=== PATIENT | female | born 1945 | race Caucasian/White ===

== ENCOUNTER 2025-04-23 10:54 | Outpatient (AMB) | payer MEDICARE, OTHER, SELFPAY ==
--- NOTE | 2025-04-23 11:03 | A.OFFPC_ITS ---
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 Accompanied by: Daughter Allergies gabapentin Allergy (Intermediate, Verified 04/23/25 11:18) Hives Iodinated Contrast Media (Contrast Dye) Allergy (Intermediate, Verified 04/23/25 11:18) Swelling banana Allergy (Mild, Verified 04/23/25 11:18) diarrhea/nausea latex Allergy (Mild, Verified 04/23/25 11:18) red bumps/swelling ondansetron (From Zofran) Allergy (Mild, Verified 04/23/25 11:18) QT prolongation Penicillins Allergy (Mild, Verified 04/23/25 11:18) Rash shellfish derived (shellfish) Allergy (Mild, Verified 04/23/25 11:18) Hives Sulfa (Sulfonamide Antibiotics) Allergy (Mild, Verified 04/23/25 11:18) Rash Tetracyclines Allergy (Mild, Verified 04/23/25 11:18) Unknown nitrofurantoin (From Macrobid) Allergy (Verified 04/23/25 11:18) Unknown iodine topical Allergy (Mild, Uncoded 04/23/25 11:18) Unknown Medication List - Last Reconciled 04/23/25 by Jyothi Ayers MD cetirizine mg PO morphine ER 60 mg PO Q12H olanzapine 5 mg PO DAILY omeprazole 40 mg PO BID oxycodone 15 mg PO Q3H PRN sennosides (senna) 17.2 mg PO BEDTIME PRN Tobacco use date assessed: 04/23/25 Fall risk assessment: 2 + Falls in past year Last assessed Fall Risk: 04/23/25 Dental Screening Dental Screen Date: 04/23/25 Did you have a dental visit in the last 12 months?: No Did you have a dental problem in the last 6 months where you did not have access to dental care?: No HPI HPI Comments History of Present Illness Details The patient is an 79-year-old female presenting to re-establish care and for medication reconciliation. Accompanied by daughter Mariluz. Cholangiocarcinoma s/p Y90 radioembolization: Managed by [facility] Dr. Sosa Medication Adherence: The patient has been struggling with managing her medications, which has contributed to depression. She reports having stopped all her medications except for her pain medication. Palliative care suggested using a bubble pack from [facility] pharmacy to help with medication management. Depression and Anxiety: The patient has a history of depression and anxiety and was previously on duloxetine, which had been increased from 60 mg to 90 mg. She stopped taking duloxetine and was reluctant to restart it at the higher dose. Nausea: The patient reports struggling with significant nausea. Her oncologist prescribed olanzapine 5 mg to help with nausea and depression, but she was hesitant to start it before speaking with her primary physician. She has been sucking on ariela to help alleviate the symptom. Chronic Pain: The patient's chronic pain is managed with a long-acting pain medication, with the dose recently increased from 30 to 60. Since the dose increase, she has not required her short-acting oxycodone for breakthrough pain. She takes her pain medication at 9 a.m. and 9 p.m. She is also being seen by [facility]. Opioid-Induced Constipation: The patient reports having a bowel movement every other day. She takes two Senna tablets nightly and miralax sometimes to manage symptoms. Diabetes Mellitus: The patient uses a Direct Hit Nicholas 2 sensor for continuous glucose monitoring, which is changed every 14 days. She was previously taking 8 units of long-acting insulin but has not been checking her blood sugar or taking her insulin recently. Generalized Weakness: The patient reports being extremely weak, chairbound, and unable to stand up from a low position. She is considered homebound. History of QT Prolongation: The patient has a history of QT prolongation on an EKG, which was caused by zofran. The medication was stopped due to the risk of dangerous arrhythmias. Recurrent UTIs- has seen [facility] before, now on methenamine bid Medical History: - Major depressive disorder - Anxiety - Chronic pain syndrome - Diabetes mellitus - Recurrent UTIs, on prophylaxis - History of QT prolongation secondary t o medication - Gastritis Medications: - Long-acting pain medication 60, for ch ronic pain - Aracelis, two tablets at night, for consti pation - Omeprazole, for gastritis/heartburn pr evention - Methenamine 1 g twice daily, for UTI p revention - Docusate 100 mg, as a stool softener - Vitamin D3 50,000 units once weekly (c sulytlking held) - Multivitamin once daily - Cetirizine (Zyrtec), as needed for all ergies - Insulin, long-acting, 8 units (current ly held) - OTC Ariela, for nausea - Liquid IV, once daily for hydration(52 0mg Na) - Fair Life liquid protein, once daily Social History: - Functional status: The patient is extr karsten weak, chairbound, homebound, and incontinent. - Housing/Support: The patient lives at home and has difficulty obtaining in-h ome help through Medicare as her income is above the qualifying threshold. - Nutrition/Hydration: She consumes one packet of Liquid IV daily for hydration, which contains 520 mg of sodium. - She also consumes a daily liquid prote in shake (Fair Life). - Substance Use: No tobacco, alcohol, or illicit drug use discussed. - Opioid Use: The patient is on chronic opioid therapy for pain management and has Narcan at home. Review of Systems - Constitutional: Reports extreme weakne ss and being homebound. - Denies fevers or chills. - Gastrointestinal: Reports significant nausea, belching, and pain in the right upper quadrant into the ribs. - Denies heartburn or stomach pain. - Reports bowel movements every other da y. - : Reports urinary incontinence. - Cardiovascular: Denies leg swelling. - Psychiatric: Reports depression and an xiety. - Denies agitation. Physical Exam - General: Patient is chairbound. - Cardiovascular: Normal heart sounds, s oft murmur across precordium. - Pulmonary: Lungs are clear to ausculta tion bilaterally. - Abdomen: Soft, with normoactive bowel sounds. - Tenderness to palpation in the right u pper quadrant near the ribs. - Extremities: No peripheral edema noted in legs bilaterally. Assessment and Plan 1. Medication non-adherence - The patient has significant difficulty with her medication regimen, leading to her stopping all medications except for pain management. - Plan is to consolidate all maintenance medications (omeprazole, Senna, methenamine, olanzapine) to [facility] for bubble packing to improve adherence. - Pain medication and CGM supplies will be sent to [facility]. 2. Nausea, Depression, and Anxiety - Patient presents with uncontrolled alan sea and a history of depression and anxiety, with recent non-adherence to duloxetine. - Plan is to start olanzapine 5 mg once daily in the evening to address both nausea and depression. - The dual benefit and potential for sed ation were discussed. - Last EKG 01/2025- QTC 424 - She will discontinue duloxetine. 3. Chronic Pain in setting of cholangioc arcinoma - The patient's chronic pain is managed with an opioid regimen. - The recent increase in her long-acting medication has reduced her need for short-acting oxycodone. - She signed an updated pain management contract. - Plan is to continue the current regime n with prescriptions sent to [facility]. - A urine drug screen is ordered 4. Opioid-Induced Constipation - Patient requires a bowel regimen to ma intain motility. - Plan is to continue Senna two tabs nig htly - Prescriptions will be sent for bubble packing. 5. Diabetes Mellitus - Patient has not been taking her insuli n or monitoring her glucose. - Plan is to hold insulin until she resu mes tracking her levels with her Freestyle Nicholas 2 sensor to avoid hypoglycemia. - A1c will be checked. - The sensor prescription will go to [facility] . 6. Generalized Weakness/Social Support N eeds - Patient is homebound and frail, with d ifficulty accessing in-home care. - Plan is to refer her to social work to explore support options. - Information was provided on the [employer] transportation service for medical appointments. 7. Preventative Care and Follow-up - Plan is to check labs including A1c an d vitamin D level. - The Vitamin D supplement is held pendi ng results. - Follow-up is scheduled in 3 months. Discussion Notes I discussed at length with the patient and her daughter the challenges with medication management. We agreed to consolidate most of her medications to [facility] for bubble packing to improve adherence, while her pain medications and diabetes supplies will go to [facility] for convenience and reliability. I addressed her severe nausea and depression and recommended stopping duloxetine and starting a trial of olanzapine 5 mg in the evening. I explained that this medication could help both symptoms and that we would monitor for side effects like sedation. Given her history of QT prolongation, I noted that while olanzapine also carries this risk, it is less pronounced than her previous medication, and we may obtain an EKG to monitor this. For her chronic pain, we will continue the current regimen as the increased long-acting dose has been effective. A new pain contract was reviewed and signed. I advised holding her insulin until she resumes blood sugar monitoring to prevent hypoglycemia. I also placed a referral to social work to explore options for in- home help and provided information on the [facility] transportation service. Patient Instructions - To make taking your medicines easier, we will send most of your prescriptions to [facility] pharmacy to be put into a weekly bubble pack. - Your pain medicine and your diabetes s ensor prescriptions will be sent to [facility]. - To help with nausea and depression, st op taking your duloxetine and start taking olanzapine 5 mg once a day in the evening. - This new medicine may make you sleepy, so taking it at night is best. - Do not restart your insulin until you have your Freestyle Nicholas sensor and are able to check your blood sugar regularly. - Stop taking your high-dose vitamin D p ill for now. - Continue taking two Senna tablets at [facility] for your bowels. - Use only one packet of Liquid IV per d ay, and skip it if your blood pressure is high. - Please go to the lab to get your blood drawn for testing. [facility] Medical History (Updated 04/23/25 @ 14:08 by Jyothi Ayers MD) UTI due to extended-spectrum beta lactamase (ESBL) producing Escherichia coli Recurrent UTI Depression with anxiety QT prolongation Gastroparesis Skin cancer COPD (chronic obstructive pulmonary disease) Unspecified asthma Hypothyroidism Primary hypertension Depression Diabetes mellitus type 2 in obese Cholangiocarcinoma Surgical History (Updated 04/23/25 @ 12:20 by Jyothi Ayers MD) H/O: hysterectomy H/O cervical spine surgery Hx of cholecystectomy Social History Housing: House Patient Tobacco Use Status: Former Tobacco user Years Smoked: < 1 year e-Cigarette/Vaping Use: Never Used service: No Current occupational status: retired Questionnaire AUDIT C Alcohol Use Questionnaire (AUDIT-C) 1. How often do you have a drink containing alcohol?: Never 3. How often do you have six or more drinks on one occasion?: Never Total Score: 0 Physical exam (Primary Care) Vital Signs: Last Vital Signs Temp 96.9 F 04/23/25 11:05 Pulse 97 04/23/25 11:05 Resp 16 04/23/25 11:05 BP 124/68 04/23/25 11:05 Pulse Ox 93 04/23/25 11:05 Oxygen Delivery Method Room Air 04/23/25 11:05 BMI result Body Mass Index 31.9 Tobacco/Smoking Status: Tobacco use Status Tobacco use date assessed 04/23/25 04/23/25 11:06 Patient Tobacco Use Status Former Tobacco user 04/23/25 11:10 e-Cigarette/Vaping Use Never Used 04/23/25 11:10 Coding Level of Care Code Est Pt Level 5 (76521) Complex EM visit Add On G2211 Diagnoses Diabetes mellitus type 2 in obese E11.69; E66.9 Cholangiocarcinoma C22.1 Depression with anxiety F41.8 Time Spent (min) 55 Comment include chart review, document prep, visit time and physical exam, discussion of care plan Assessment & Plan Assessment & Plan (1) Diabetes mellitus type 2 in obese: Code(s): E11.69 - Type 2 diabetes mellitus with other specified complication; E66.9 - Obesity, unspecified Category: Medical (2) Cholangiocarcinoma: Code(s): C22.1 - Intrahepatic bile duct carcinoma Category: Medical (3) Depression with anxiety: Code(s): F41.8 - Other specified anxiety disorders Category: Medical Plan - Start olanzapine 5 mg once daily in the evening for nausea and depression; discontinue duloxetine. - Consolidate all maintenance prescriptions (olanzapine, omeprazole, Aracelis, methenamine, docusate) to [facility] for bubble packing. - Send prescriptions for pain medication and Freestyle Nicholas 2 sensors to [facility]. - Continue current chronic pain medication regimen. - Obtain urine drug screen - Obtain labs to check liver function, A1c, and vitamin D level. - Hold insulin until patient is able to track blood glucose levels with her CGM to prevent hypoglycemia. - Hold vitamin D supplement pending lab results. - Refer patient to social work to assist with finding in-home support services. - Follow up in 3 months. Orders: Orders Alcohol, Ethyl Urine Screen Today C22.1 - Intrahepatic bile duct carcinoma, E11.69 - Type 2 diabetes mellitus with other specified complication, E66.9 - Obesity, unspecified Ferritin Today C22.1 - Intrahepatic bile duct carcinoma, E11.69 - Type 2 diabetes mellitus with other specified complication, E66.9 - Obesity, unspecified Folate Today C22.1 - Intrahepatic bile duct carcinoma, E11.69 - Type 2 diabetes mellitus with other specified complication, E66.9 - Obesity, unspecified Complete Blood Count Auto Diff Today C22.1 - Intrahepatic bile duct carcinoma, E11.69 - Type 2 diabetes mellitus with other specified complication, E66.9 - Obesity, unspecified Comprehensive Met. Panel Today C22.1 - Intrahepatic bile duct carcinoma, E11.69 - Type 2 diabetes mellitus with other specified complication, E66.9 - Obesity, unspecified Cocaine Screen Urine Today C22.1 - Intrahepatic bile duct carcinoma, E11.69 - Type 2 diabetes mellitus with other specified complication, E66.9 - Obesity, unspecified Vitamin D 25-OH Total Today C22.1 - Intrahepatic bile duct carcinoma, E11.69 - Type 2 diabetes mellitus with other specified complication, E66.9 - Obesity, unspecified Vitamin B12 Today C22.1 - Intrahepatic bile duct carcinoma, E11.69 - Type 2 diabetes mellitus with other specified complication, E66.9 - Obesity, unspecified Hemoglobin A1c Today C22.1 - Intrahepatic bile duct carcinoma, E11.69 - Type 2 diabetes mellitus with other specified complication, E66.9 - Obesity, unspecified TSH reflex Free T4 Today E03.9 - Hypothyroidism, unspecified Cannabinoid Screen Urine Today C22.1 - Intrahepatic bile duct carcinoma, E11.69 - Type 2 diabetes mellitus with other specified complication, E66.9 - Obesity, unspecified Opiate Screen Urine Today C22.1 - Intrahepatic bile duct carcinoma, E11.69 - Type 2 diabetes mellitus with other specified complication, E66.9 - Obesity, unspecified Medications: New olanzapine 5 mg PO DAILY 30 tabs 3RF sennosides (senna) 17.2 mg (2 x 8.6 mg) PO BEDTIME PRN 60 tabs 11RF constipation insulin glargine (Lantus Solostar U-100 Insulin) 8 units (0.08 mL) subcut DAILY 15 mL 11RF naloxone 4 mg/actuation (Narcan) spray 1 dose into ONE nostril; alternate nostrils w each dose until help arrives 1 spray intranasal Q3M methenamine hippurate 1 g PO BID 60 tabs 11RF omeprazole 40 mg PO DAILY 30 caps 11RF omeprazole 40 mg PO DAILY 30 caps 11RF flash glucose sensor (FreeStyle Nicholas 2 Sensor kit) dx: E11.9 use twice daily change sensor every 14 days 2 ea 11RF
[2025-04-23 11:05] VITALS: BP 124/68; PULSE 97; RESP 16; TEMP 36.1; O2SAT 93; BMI 31.9
--- OUTSIDE RECORDS SUMMARY | 2025-04-23 13:35 | XMS_ITS | Clinical Summary ---
Author Organization [address] Address [address] [place] [phone] Phone Care Team Providers Care Fisher Net Name Role Phone Jyothi Ayers MD Primary Care Provider +1- [phone] Social History Tobacco Use Types Packs/Day Years Used Date Smoking Tobacco: Never Smokeless Tobacco: Never Alcohol Use Standard Drinks/Week Comments Never 0 (1 standard drink = 0.6 oz pur e alcohol) Comments Unknown Sex and Gender Information Value Date Recorded Sex Assigned at Not on file Legal Sex Female 4:41 AM EST Gender Identity Not on file Sexual Orientation Not on file Obstetrics History Last Filed Vital Signs Vital Sign Reading Time Taken Comments Blood Pressure 134/76 01/16/2023 11:06 AM EDT Si tting R Arm Pulse 59 01/16/2023 11:06 AM EDT Temperature - - Respiratory Rate - - Oxygen Saturation - - Inhaled Oxygen Concentration - - Weight 77.6 kg (171 lb) 01/16/2023 11:06 AM EDT Height 160 cm (5' 3 ) 01/16/2023 11:06 AM EDT Body Mass Index 30.29 01/16/2023 11:06 AM EDT Plan of Treatment Health Maintenance Due Date Last Done Comments Diabetes: Annual Foot Exam 1955 Diabetes: Annual Retina Eye Exam 1955 Hepatitis A Vaccines (1 of 2 - Risk 2-dose series) 1962 Zoster Vaccines (1 of 2) 1993 Hepatitis B Vaccines (1 of 3 - Risk 3-dose series) 2003 RSV Immunization Adult Patients (1 - 1-dose 75+ series) 2018 Cholesterol Screening (Lipid Panel) 05/14/2022 Falls Risk Assessment 05/14/2022 Medicare Annual Wellness Visit 05/14/2022 Social Influencers of Health Screening 05/14/2022 Diabetes: Annual Urine Albumin-Creatinine Ratio (uACR) 04/15/2024 Depression Screening 06/11/2024 Diabetes: Blood Sugar Control Test (HGBA1C) 11/26/2024 05/28/2024 COVID-19 Vaccine ( season) 2025 05/10/2021, 02/15/2021, 01/17/2021 Influenza Vaccine (#1) 2025 , 04/01/2021, 03/12/2020, Additional history exists Diabetes: Annual GFR (Glomerular Filtration Rate) 06/17/2025 06/17/2024, 06/10/2024, 06/05/2024, Additional history exists Hypertension/CHF/CAD Annual BMP Blood Test 06/17/2025 06/17/2024, 06/10/2024, 06/05/2024, Additional history exists DTaP,Tdap,and Td Vaccines (3 - Td or Tdap) 02/12/2030 02/13/2020, 07/05/2015 Osteoporosis Screening (Bone Density Screening) 10/08/2031 10/07/2021 Pneumococcal Vaccine: 50+ Years Completed 02/15/2023, 07/04/2017, 08/24/2014 HIB Vaccines Aged Out No longer eligi ble based on patient's age to complete this topic HPV Vaccines Aged Out No longer eligi ble based on patient's age to complete this topic IPV Vaccines Aged Out No longer eligi ble based on patient's age to complete this topic MMR Vaccines Aged Out No longer eligi ble based on patient's age to complete this topic Meningococcal ACWY Vaccine Aged Out N o longer eligible based on patient's age to complete this topic Meningococcal B Vaccine Aged Out No l onger eligible based on patient's age to complete this topic RSV Immunization Patients Under 20 months Aged Out No longer eligible based on patient's age to complete this topic Varicella Vaccines Aged Out No longer eligible based on patient's age to complete this topic Procedures Procedure Name Priority Date/Time Associated Diagnosis Comments COMPREHENSIVE METABOLIC PANEL Routine 06/17/2024 7:10 AM EST Hypothyroidism, unspecified HEMOGLOBIN A1C Routine 05/28/2024 8:15 AM EST Type 2 diabetes mellitus without complications (CMS/HCC) [facility] DEXA AXIAL SKELETON Routine 10/07/2021 2:26 PM EDT Encounter for screening for osteoporosis from Last 3 Months or Most Recently Relevant to Health Maintenance Results * (ABNORMAL) Comprehensive metabolic panel (06/17/2024 7:10 AM EST) Pathologist [facility] Sodium 139 133 - 145 mmol/L LAB CHEMISTRY METHOD 06/17/2024 11:20 AM [facility] Potassium 4.0 3.5 - 5.5 mmol/L LAB CHEMISTRY METHOD 06/17/2024 11:20 AM [facility] Chloride 104 96 - 110 mmol/L LAB CHEMISTRY METHOD 06/17/2024 11:20 AM [facility] CO2 31 21 - 32 mmol/L LAB CHEMISTRY METHOD 06/17/2024 11:20 AM [facility] Anion Gap 4 3 - 11 LAB CHEMISTRY METHOD 06/17/2024 11:20 AM [facility] Glucose 83 70 - 100 mg/dL LAB CHEMISTRY METHOD 06/17/2024 11:20 AM [facility] BUN 12 5 - 25 mg/dL LAB CHEMISTRY METHOD 06/17/2024 11:20 AM [facility] Creatinine 0.63 0.50 - 1.10 mg/dL LAB CHEMISTRY METHOD 06/17/2024 11:20 AM [facility] eGFR 89 >=60 mL/min/1. 73m2 LAB CHEMISTRY METHOD 06/17/2024 11:20 AM [facility] Comment:Calculation based on the Chronic Kidney Disease Epidemiology Collaboration (CKD-EPI) equation refit without adjustment for race. BUN/Creatinine Ratio 19.0 LAB CHEMISTRY METHOD 06/17/2024 11:20 AM [facility] Calcium 8.8 8.5 - 10.5 mg/dL LAB CHEMISTRY METHOD 06/17/2024 11:20 AM [facility] AST (SGOT) 6(L) 10 - 42 unit/L LAB CHEMISTRY METHOD 06/17/2024 11:20 AM [facility] ALT (SGPT) 10 10 - 60 unit/L LAB CHEMISTRY METHOD 06/17/2024 11:20 AM [facility] Alkaline Phosphatase 68 42 - 121 unit/L LAB CHEMISTRY METHOD 06/17/2024 11:20 AM [facility] Total Protein 5.6(L) 6.0 - 8.0 g/dL LAB CHEMISTRY METHOD 06/17/2024 11:20 AM [facility] Albumin 2.6(L) 3.2 - 5.0 g/dL LAB CHEMISTRY METHOD 06/17/2024 11:20 AM [facility] Total Bilirubin 0.2 0.0 - 1.4 mg/dL LAB CHEMISTRY METHOD 06/17/2024 11:20 AM [facility] Blood Venous blood specimen / Unknown Venipuncture / Unknown 06/17/2024 7:10 AM EST 06/17/2024 9:19 AM EST us Petros Kumar MD LAB BLOOD ORDERABLES Final Resul t [facility] [address] [place] [address], * Hemoglobin A1c (05/28/2024 8:15 AM EST) Hemoglobin A1C 6.4 <6.5 % LAB CHEMISTRY METHOD 05/28/2024 1:07 PM [facility] Mean Bld Glu Estim. 137 mg/dL LAB CHEMISTRY METHOD 05/28/2024 1:07 PM [facility] Blood Venous blood specimen / Unknown Venipuncture / Unknown 05/28/2024 8:15 AM EST 05/28/2024 9:44 AM EST us Petros Kumar MD LAB BLOOD ORDERABLES Final Resul t [facility] [address] [place] [address], [place] [phone] * [facility] DEXA AXIAL SKELETON (10/07/2021 2:26 PM EDT) Anatomical Region Laterality Modality Mammography 10/07/2021 1:27 PM EDT Narrative 10/07/2021 2:26 PM EDT [facility] Diagnostic Imaging Department [address] [place] [address] Patient: DAPHNIE BUSTAMANTE./Age/Sex: 1945 - 76 - F Unit#: [id number] Location/Status: [facility] Order[facility] Physician: KEVIN JEAN MD [facility] Dexa Axial Skeleton - 10/07/21 - 1403 [facility] Dexa Axial Skeleton INDICATION: POSTMENOPAUSAL Technique: Bone densitometry was performed utilizing dual energy x-ray absorptiometry (DEXA). The lumbar spine is evaluated in the AP projection from L2 to L4. L1 was omitted because of vertebral augmentation procedure. The proximal femora are evaluated in the AP projection bilaterally. COMPARISON: None FINDINGS: AP spine: Bone mineral density: 1.175 gm/cm2 T-score: -0.2 Total mean hip: Bone mineral density: 0.669 gm/cm2 T-score: -2.7 IMPRESSION: Findings suggesting osteoporosis, placing the patient at risk for fracture. [id number] Dictating Physician: MARIBEL BUSCH MD Electronically Signed by: MARIBEL BUSCH MD Dic Date/Time: 10/07/21 142 Sign date/Time: 10/07/21 142 Procedure Note Maribel Busch MD - 05/31/2022 [facility] Diagnostic Imaging Department [address] [place] [id number] Patient: DAPHNIE BUSTAMANTE D.O.B./Age/Sex: 1945 - 76 - F Unit#: [id number] Location/Status: [facility] Mnemonic/Ordering Site: [facility] Ordering Physician: KEVIN JEAN MD [facility] Dexa Axial Skeleton - 10/07/21 - 1403 [facility] Dexa Axial Skeleton INDICATION: POSTMENOPAUSAL Technique: Bone densitometry was performed utilizing dual energy x-ray absorptiometry (DEXA). The lumbar spine is evaluated in the AP projectionfrom L2 to L4. L1 was omitted because of vertebral augmentation procedure.The proximal femora are evaluated in the AP projection bilaterally. COMPARISON: None FINDINGS: AP spine: Bone mineral density: 1.175 gm/cm2 T-score: -0.2 Total mean hip: Bone mineral density: 0.669 gm/cm2 T-score: -2.7 IMPRESSION: Findings suggesting osteoporosis, placing the patient at risk forfracture. [id number] Dictating Physician: MARIBEL BUSCH MD Electronically Signed by: MARIBEL BUSCH MD Dic Date/Time: 10/07/21 142 Sign date/Time: 10/07/21 142 Kevin Jean MD IMG BI PROCEDURES Final Result from Last 3 Months or Most Recently Relevant to Health Maintenance Insurance MEDICAID - [place] [facility] MEDICARE Care Teams Fisher Net Relationship Specialty Start Date End Date Jyothi Ayers MD [address] [place] [id number] [facility] - General 04/10/22
--- OUTSIDE RECORDS SUMMARY | 2025-04-23 13:35 | XMS_ITS | Encounter Summary ---
Author Organization [employer] Address [address] [facility] [address] [place] [address] Care Team Providers Care Senior Bi Developer Name Role Phone Unavailable Primary Care Provider Unavailabl e Encounter Details Date Type Department Care Team (Latest Contact Info) Description 07/19/2018 Abstract C CONVERSIONS Dental, Provider, DDS Social History Tobacco Use Types Packs/Day Years Used Date Smoking Tobacco: Never Assessed Comments Unknown Sex and Gender Information Value Date Recorded Sex Assigned at Female 04/10/2022 10:35 AM EDT Legal Sex Female 10:35 AM EDT Gender Identity Female 04/10/2022 10:35 AM EDT Sexual Orientation Not on file documented as of this encounter Plan of Treatment Not on file documented as of this encounter Visit Diagnoses Not on filedocumented in this encounter
--- OUTSIDE RECORDS SUMMARY | 2025-04-23 13:35 | XMS_ITS | Encounter Summary ---
Author Organization [facility] Address [address] [place] [address] Care Team Providers Care Front Of House Manager Name Role Phone Jyotih Ayers MD Primary Care Provider +1- [phone] Encounter Details Date Type Department Care Team (Late st Contact Info) Description 04/25/2024 Lab Requisition [facility] - Main Lab [address] [facility] [place] [address] Petros Kumar MD [address] [place] [address] Essential (primary) hypertension Social History Tobacco Use Types Packs/Day Years Used Date Smoking Tobacco: Never Smokeless Tobacco: Never Alcohol Use Standard Drinks/Week Comments Never 0 (1 standard drink = 0.6 oz pur e alcohol) Comments Unknown Sex and Gender Information Value Date Recorded Sex Assigned at Not on file Legal Sex Female 4:41 AM EST Gender Identity Not on file Sexual Orientation Not on file documented as of this encounter Plan of Treatment Not on file documented as of this encounter Procedures Procedure Name Priority Date/Time Associated Diagnosis Comments COMPLETE BLOOD COUNT Routine 04/28/2024 6:44 AM EST Essential (primary) hypertension BASIC METABOLIC PANEL Routine 04/28/2024 6:44 AM EST Essential (primary) hypertension documented in this encounter Results * (ABNORMAL) Basic metabolic panel (04/28/2024 6:44 AM EST) Sodium 141 133 - 145 mmol/L LAB CHEMISTRY METHOD 04/28/2024 12:03 PM EST [facility] Potassium 3.9 3.5 - 5.5 mmol/L LAB CHEMISTRY METHOD 04/28/2024 12:03 PM [facility] Chloride 104 96 - 110 mmol/L LAB CHEMISTRY METHOD 04/28/2024 12:03 PM [facility] CO2 32 21 - 32 mmol/L LAB CHEMISTRY METHOD 04/28/2024 12:03 PM [facility] Anion Gap 5 3 - 11 LAB CHEMISTRY METHOD 04/28/2024 12:03 PM [facility] Glucose 64(L) 70 - 100 mg/dL LAB CHEMISTRY METHOD 04/28/2024 12:03 PM [facility] BUN 11 5 - 25 mg/dL LAB CHEMISTRY METHOD 04/28/2024 12:03 PM [facility] Creatinine 0.60 0.50 - 1.10 mg/dL LAB CHEMISTRY METHOD 04/28/2024 12:03 PM [facility] eGFR 91 >=60 mL/min/1. 73m2 LAB CHEMISTRY METHOD 04/28/2024 12:03 PM [facility] Comment:Calculation based on the Chronic Kidney Disease Epidemiology Collaboration (CKD-EPI) equation refit without adjustment for race. BUN/Creatinine Ratio 18.3 LAB CHEMISTRY METHOD 04/28/2024 12:03 PM [facility] Calcium 9.1 8.5 - 10.5 mg/dL LAB CHEMISTRY METHOD 04/28/2024 12:03 PM [facility] Blood Venous blood specimen / Unknown Venipuncture / Unknown 04/28/2024 6:44 AM EST 04/28/2024 10:38 AM EST us Petros Kumar MD LAB BLOOD ORDERABLES Final Resul t [facility] [address] [place] [address], * (ABNORMAL) Complete blood count (04/28/2024 6:44 AM EST) [facility] WBC 4.1(L) 4.8 - 10.8 K/mcL LAB HEMETOLOGY METHOD 04/28/2024 11:32 AM [facility] RBC 3.50(L) 3.80 - 4.80 M/mcL LAB HEMETOLOGY METHOD 04/28/2024 11:32 AM [facility] Hemoglobin 9.9(L) 11.5 - 16.0 g/dL LAB HEMETOLOGY METHOD 04/28/2024 11:32 AM [facility] Hematocrit 32.8(L) 35.0 - 47.0 % LAB HEMETOLOGY METHOD 04/28/2024 11:32 AM [facility] MCV 94.8 79.0 - 98.0 FL LAB HEMETOLOGY METHOD 04/28/2024 11:32 AM [facility] MCH 28.6 27.0 - 32.0 pcg LAB HEMETOLOGY METHOD 04/28/2024 11:32 AM [facility] MCHC 30.2(L) 32.0 - 37.0 g/dL LAB HEMETOLOGY METHOD 04/28/2024 11:32 AM [facility] RDW 12.8 11.0 - 15.0 % LAB HEMETOLOGY METHOD 04/28/2024 11:32 AM [facility] Platelets 150 130 - 400 K/mcL LAB HEMETOLOGY METHOD 04/28/2024 11:32 AM [facility] MPV 11.8(H) 7.0 - 11.0 FL LAB HEMETOLOGY METHOD 04/28/2024 11:32 AM [facility] NRBC 0.0 <1.0 % LAB HEMETOLOGY METHOD 04/28/2024 11:32 AM [facility] NRBC Absolute 0.00 <0.10 K/mcL LAB HEMETOLOGY METHOD 04/28/2024 11:32 AM EST [facility] Blood Venous blood specimen / Unknown Venipuncture / Unknown 04/28/2024 6:44 AM EST 04/28/2024 10:38 AM EST us Petros Kumar MD LAB BLOOD ORDERABLES Final Resul t [facility] [address] [place] [address], [place] [phone] documented in this encounter Visit Diagnoses Diagnosis Essential (primary) hypertension Unspecified essential hypertension documented in this encounter Care Teams Front Of House Manager Relationship Specialty Start Date End Date Jyothi Ayers MD [address] [place] [address] PCP - General 04/10/22 documented as of this encounter
--- OUTSIDE RECORDS SUMMARY | 2025-04-23 13:35 | XMS_ITS | Encounter Summary ---
Author Organization [facility] Address [address] [facility] [address] [place] [phone] Phone Care Team Providers Care Supervisor Sandblaster Name Role Phone Jyothi Ayers MD Primary Care Provider + Encounter Details Date Type Department Care Team (Late st Contact Info) Description 10/17/2018 Ancillary Orders [facility], X-Ray - [facility] [address] [place] [address] Latesha Sotelo, PRECISE WINDER [address] [place] [id number] .[employer] Pain Social History Tobacco Use Types Packs/Day Years Used Date Smoking Tobacco: Never Assessed Comments Unknown Sex and Gender Information Value Date Recorded Sex Assigned at Not on file Legal Sex Female 10:10 PM EDT Gender Identity Not on file Sexual Orientation Not on file documented as of this encounter Plan of Treatment Not on file documented as of this encounter Results * XR PELVIS AP PLUS FROG OR OUTLET 2 VIEWS (10/17/2018 11:44 AM EDT) Anatomical Region Laterality Modality Pelvis Radiographic Linda ging 10/17/2018 1:07 PM EDT Impressions 10/17/2018 1:13 PM EDT No evidence for acute pelvic bone or right hip fracture. Moderate bilateral hip degenerative arthritis. POS - [id number] Narrative 10/17/2018 1:13 PM EDT XR HIP 2-3 VW RIGHT, XR PELVIS AP PLUS FROG OR OUTLET 2 VIEWS HISTORY: PELVIS AND RIGHT HIP XRAYS, AP AND LATERAL, INDICATION: THREE FALLS, SAME DAY, MID SEPTEMBER. HAS WORSENING PAIN, WORSENING FUNCTION. PLEASE ASSESS FOR FRACTURE AT THE RIGHT SIDE OF THE ILIUM, PUBIC RAMUS, FEMORAL NECK/HEAD TECHNIQUE: AP and crosstable lateral views pelvis. AP and crosstable lateral views right hip. COMPARISON: None FINDINGS: There is no acute fracture or dislocation. Normal bone alignment. There is moderate bilateral hip degenerative joint space narrowing with acetabular rim and femoral head spurring. Pubic rami appear normal. Mild degenerative spurring at the inferior margins of the sacroiliac joints. Procedure Note Janee Villasenor MD - 10/17/2018 XR HIP 2-3 VW RIGHT, XR PELVIS AP PLUS FROG OR OUTLET 2 VIEWS HISTORY: PELVIS AND RIGHT HIP XRAYS, AP AND LATERAL, INDICATION: THREEFALLS, SAME DAY, MID SEPTEMBER. HAS WORSENING PAIN, WORSENING FUNCTION. PLEASEASSESS FOR FRACTURE AT THE RIGHT SIDE OF THE ILIUM, PUBIC RAMUS, FEMORALNECK/HEAD TECHNIQUE: AP and crosstable lateral views pelvis. AP and crosstablelateral views right hip. COMPARISON: None FINDINGS: There is no acute fracture or dislocation. Normal bone alignment. There is moderate bilateral hip degenerative joint space narrowing withacetabular rim and femoral head spurring. Pubic rami appear normal. Mild degenerative spurring at the inferior margins of the sacroiliacjoints. IMPRESSION: No evidence for acute pelvic bone or right hip fracture. Moderate bilateral hip degenerative arthritis. POS - [id number] Latesha Sotelo PRECISE WINDER IMG XR PELVIS Final Result documented in this encounter Visit Diagnoses Diagnosis Pain Generalized pain Pain Generalized pain documented in this encounter Care Teams Supervisor Sandblaster Relationship Specialty Start Date End Date Jyothi Ayers MD PCP - General Internal Medicine 10/17/18 documented as of this encounter Additional Source Comments The information contained in this document represents components of the legal health record. It is not the complete legal health record.[facility]
--- OUTSIDE RECORDS SUMMARY | 2025-04-23 13:35 | XMS_ITS | Encounter Summary ---
Author Organization [facility] Address [address] [place] [address] Care Team Providers Care Drilling Fluids Specialist Name Role Phone Jyothi Ayers MD Primary Care Provider +1- [phone] Encounter Details Date Type Department Care Team (Late st Contact Info) Description 06/23/[address] [facility] - Main Lab [address] [facility] [place] [address] Petros Kumar MD [address] [place] [address] Hypothyroidism, unspecified Social History Tobacco Use Types Packs/Day Years [...] documented as of this encounter Visit Diagnoses Diagnosis Hypothyroidism, unspecified documented in this encounter Care Teams Drilling Fluids Specialist Relationship Specialty Start Date End Date Jyothi Ayers MD [address] [place] [address] PCP - General 04/10/22 documented as of this encounter
--- OUTSIDE RECORDS SUMMARY | 2025-04-23 13:35 | XMS_ITS | Encounter Summary ---
Author Organization [facility] Address [address] [place] [address] Care Team Providers Care Supervisor Stripping Name Role Phone Jyothi Ayers MD Primary Care Provider +1- [phone] Encounter Details Date Type Department Care Team (Late st Contact Info) Description 04/18/2024 Lab Requisition [facility] - Main Lab [address] [facility] [address] [place] [address] Petros Kumar MD [address] [place] [address] Essential (primary) hypertension Social History Tobacco Use [...] Associated Diagnosis Comments COMPLETE BLOOD COUNT Routine 04/21/2024 6:52 AM EST Essential (primary) hypertension BASIC METABOLIC PANEL Routine 04/21/2024 6:52 AM EST Essential (primary) hypertension documented in this encounter Results * (ABNORMAL) Basic metabolic panel (04/21/2024 6:52 AM EST) Sodium 141 133 - 145 mmol/L LAB CHEMISTRY METHOD 04/21/2024 10:29 AM EST [facility] Potassium 4.2 3.5 - 5.5 mmol/L LAB CHEMISTRY METHOD 04/21/2024 10:29 AM [facility] Chloride 105 96 - 110 mmol/L LAB CHEMISTRY METHOD 04/21/2024 10:29 AM [facility] CO2 32 21 - 32 mmol/L LAB CHEMISTRY METHOD 04/21/2024 10:29 AM [facility] Anion Gap 4 3 - 11 LAB CHEMISTRY METHOD 04/21/2024 10:29 AM [facility] Glucose 102(H) 70 - 100 mg/dL LAB CHEMISTRY METHOD 04/21/2024 10:29 AM [facility] BUN 12 5 - 25 mg/dL LAB CHEMISTRY METHOD 04/21/2024 10:29 AM [facility] Creatinine 0.55 0.50 - 1.10 mg/dL LAB CHEMISTRY METHOD 04/21/2024 10:29 AM [facility] eGFR 93 >=60 mL/min/1. 73m2 LAB CHEMISTRY METHOD 04/21/2024 10:29 AM [facility] Comment:Calculation based on the Chronic Kidney Disease Epidemiology Collaboration (CKD-EPI) equation refit without adjustment for race. BUN/Creatinine Ratio 21.8 LAB CHEMISTRY METHOD 04/21/2024 10:29 AM [facility] Calcium 9.5 8.5 - 10.5 mg/dL LAB CHEMISTRY METHOD 04/21/2024 10:29 AM [facility] Blood Venous blood specimen / Unknown Venipuncture / Unknown 04/21/2024 6:52 AM EST 04/21/2024 9:49 AM EST us Petros Kumar MD LAB BLOOD ORDERABLES Final Resul t [facility] [address] [place] [address], * (ABNORMAL) Complete blood count (04/21/2024 6:52 AM EST) [facility] WBC 4.9 4.8 - 10.8 K/mcL LAB HEMETOLOGY METHOD 04/21/2024 10:41 AM [facility] RBC 3.90 3.80 - 4.80 M/mcL LAB HEMETOLOGY METHOD 04/21/2024 10:41 AM [facility] Hemoglobin 11.1(L) 11.5 - 16.0 g/dL LAB HEMETOLOGY METHOD 04/21/2024 10:41 AM [facility] Hematocrit 36.0 35.0 - 47.0 % LAB HEMETOLOGY METHOD 04/21/2024 10:41 AM [facility] MCV 92.3 79.0 - 98.0 FL LAB HEMETOLOGY METHOD 04/21/2024 10:41 AM [facility] MCH 28.5 27.0 - 32.0 pcg LAB HEMETOLOGY METHOD 04/21/2024 10:41 AM [facility] MCHC 30.8(L) 32.0 - 37.0 g/dL LAB HEMETOLOGY METHOD 04/21/2024 10:41 AM [facility] RDW 12.9 11.0 - 15.0 % LAB HEMETOLOGY METHOD 04/21/2024 10:41 AM [facility] Platelets 179 130 - 400 K/mcL LAB HEMETOLOGY METHOD 04/21/2024 10:41 AM [facility] MPV 11.5(H) 7.0 - 11.0 FL LAB HEMETOLOGY METHOD 04/21/2024 10:41 AM [facility] NRBC 0.0 <1.0 % LAB HEMETOLOGY METHOD 04/21/2024 10:41 AM [facility] NRBC Absolute 0.00 <0.10 K/mcL LAB HEMETOLOGY METHOD 04/21/2024 10:41 AM EST [facility] Blood Venous blood specimen / Unknown Venipuncture / Unknown 04/21/2024 6:52 AM EST 04/21/2024 9:49 AM EST us Petros Kumar MD LAB BLOOD ORDERABLES Final Resul t [facility] [address] [place] [address], documented in this encounter Visit Diagnoses Diagnosis Essential (primary) hypertension Unspecified essential hypertension documented in this encounter Care Teams Supervisor Stripping Relationship Specialty Start Date End Date Jyothi Ayers MD [address] [place] [address] PCP - General 04/10/22 documented as of this encounter
--- OUTSIDE RECORDS SUMMARY | 2025-04-23 13:35 | XMS_ITS | Encounter Summary ---
Author Organization [facility] Address [address] [place] [address] Care Team Providers Care Assessment Rn Name Role Phone Jyothi Ayers MD Primary Care Provider +1- [phone] Encounter Details Date Type Department Care Team (Late st Contact Info) Description 04/27/2024 Lab Requisition [facility] - Main Lab 299 [facility] [place] [address] Petros Kumar MD [address] [place] [address] Dysuria Social History Tobacco Use Types Packs/Day Years [...] Procedure Name Priority Date/Time Associated Diagnosis Comments URINALYSIS WITH REFLEX MICROSCOPIC AND CULTURE Routine 04/26/2024 4:45 PM EST Dysuria RAMIREZ URINE CULTURE TUBE Routine 04/26/2024 4:45 PM EST Dysuria URINALYSIS WITH REFLEX MICROSCOPIC AND CULTURE Routine 04/26/2024 4:45 PM EST Dysuria CULTURE URINE Routine 04/26/2024 4:45 PM EST Dysuria documented in this encounter Results * (ABNORMAL) Culture urine (04/26/2024 4:45 PM EST) Culture, Urine 10,000-49,0 00 CFU/mL Sandi albicans/du bliniensis( A) 04/29/2024 9:21 AM [facility] Comment: The organism value for this result has been updated. These results have been appended to the previously preliminary verified report. Urine Urine specimen obtained by clean catch procedure / Unknown 04/26/2024 4:45 PM EST 04/27/2024 9:13 AM EST us Petros Kumar MD LAB MICROBIOLOGY - GENERAL ORDER ENRRIQUE Final Result [facility] [address] [place] [address], [place] [phone] * (ABNORMAL) Urinalysis with reflex microscopic and culture (04/26/2024 4:45 PM EST) [facility] Specific [place] Urine 1.012 1.003 - 1.030 LAB URINALYSIS - AUTOMATED METHOD 04/27/2024 9:13 AM [facility] pH, Urine 6.0 5.0 - 8.0 pH LAB URINALYSIS - AUTOMATED METHOD 04/27/2024 9:13 AM [facility] Leukocytes, Urine Moderate(A) Negative LAB URINALYSIS - AUTOMATED METHOD 04/27/2024 9:13 AM [facility] Nitrite, Urine Negative Negative LAB URINALYSIS - AUTOMATED METHOD 04/27/2024 9:13 AM [facility] Protein, Urine Negative <=Trace mg/dL LAB URINALYSIS - AUTOMATED METHOD 04/27/2024 9:13 AM [facility] Glucose, Urine Negative Negative mg/dL LAB URINALYSIS - AUTOMATED METHOD 04/27/2024 9:13 AM [facility] Ketones, Urine Negative Negative mg/dL LAB URINALYSIS - AUTOMATED METHOD 04/27/2024 9:13 AM [facility] Urobilinogen , Urine 0.2 0.2 - 1.0 mg/dL LAB URINALYSIS - AUTOMATED METHOD 04/27/2024 9:13 AM [facility] Bilirubin, Urine Negative Negative LAB URINALYSIS - AUTOMATED METHOD 04/27/2024 9:13 AM [facility] Blood, Urine Negative Negative LAB URINALYSIS - AUTOMATED METHOD 04/27/2024 9:13 AM [facility] RBC, Urine 0 0 - 4 /HPF LAB URINALYSIS - AUTOMATED METHOD 04/27/2024 9:13 AM [facility] WBC, Urine 49(H) 0 - 4 /HPF LAB URINALYSIS - AUTOMATED METHOD 04/27/2024 9:13 AM [facility] Squamous Epithelial, Urine 60 0 - 60 /LPF LAB URINALYSIS - AUTOMATED METHOD 04/27/2024 9:13 AM [facility] Bacteria, Urine Negative Negative /HPF LAB URINALYSIS - AUTOMATED METHOD 04/27/2024 9:13 AM [facility] Hyaline Casts, Urine 0 0 - 3 /LPF LAB URINALYSIS - AUTOMATED METHOD 04/27/2024 9:13 AM [facility] Yeast, Urine Present(A) None /HPF LAB URINALYSIS - AUTOMATED METHOD 04/27/2024 9:13 AM [facility] Urine Urine specimen obtained by clean catch procedure / Unknown 04/26/2024 4:45 PM EST 04/27/2024 8:32 AM EST us Petros Kumar MD LAB URINE ORDERABLES Final Resul t [facility] [address] [place] [address], * Ramirez urine culture tube (04/26/2024 4:45 PM EST) Extra Tube Hold for add-ons. 04/27/2024 10:[address] [facility] Comment:Auto resulted. Urine Urine specimen obtained by clean catch procedure / Unknown 04/26/2024 4:45 PM EST 04/27/2024 8:32 AM EST us Petros Kumar MD LAB URINE ORDERABLES Final Resul t [facility] [address] [place] [address], [place] [phone] documented in this encounter Visit Diagnoses Diagnosis Dysuria documented in this encounter Care Teams Assessment Rn Relationship Specialty Start Date End Date Jyothi Ayers MD [address] [place] [address] PCP - General 04/10/22 documented as of this encounter
--- OUTSIDE RECORDS SUMMARY | 2025-04-23 13:35 | XMS_ITS | Encounter Summary ---
Author Organization [facility] Address [address] [place] [address] Care Team Providers Care Smoking Tobacco Packer Hand Name Role Phone Jyothi Ayers MD Primary Care Provider +1- [phone] Encounter Details Date Type Department Care Team (Late st Contact Info) Description 05/09/2024 Lab Requisition [facility] - Main Lab [address] [facility] [place] [address] Petros Kumar MD [address] [place] [address] Essential (primary) hypertension Social History Tobacco Use [...] as of this encounter Visit Diagnoses Diagnosis Essential (primary) hypertension Unspecified essential hypertension documented in this encounter Care Teams Smoking Tobacco Packer Hand Relationship Specialty Start Date End Date Jyothi Ayers MD [address] [place] [address] PCP - General 04/10/22 documented as of this encounter
--- OUTSIDE RECORDS SUMMARY | 2025-04-23 13:35 | XMS_ITS | Clinical Summary ---
Author Organization [facility] Address [id number] [address] Phone Care Team Providers Care Targeteer Name Role Phone Jyothi Ayers MD Primary Care Provider + Allergies Active Allergy Reactions Criticality Noted Date Comments Banana 11/06/2019 Chocolate 11/06/2019 Doxycycline Calcium 11/06/2019 Gabapentin 11/06/2019 Iodinated Contrast Media 11/06/2019 IVP DYE Iodine 11/06/2019 Latex 11/06/2019 Penicillins 11/06/2019 Shellfish Containing Products 2019 Tetracyclines 11/06/2019 Tomato 11/06/2019 Medications lisinopril (PRINIVIL,ZESTR IL) 5 MG tablet Take 5 mg by mouth daily. Active metFORMIN (FORTAMET) 1000 MG (OSM) 24 hr tablet Take 1,000 mg by mouth 2 (two) times a day with meals. Active FLUoxetine (PROZAC) 20 MG tablet Take 20 mg by mouth daily. Active oxyCODONE-aceta minophen (PERCOCET) 5-325 mg per tablet Take 1 tablet by mouth 3 (three) times a day as needed for pain (specific location in comments). Active albuterol 90 mcg/actuation inhaler Inhale 2 puffs into the lungs as needed for wheezing. Active acetaminophen (TYLENOL 8 HOUR) 650 MG CR tablet Take 650 mg by mouth as needed for pain (specific location in comments). Active predniSONE (DELTASONE) 10 MG tablet TAKE 1 TABLET BY MOUTH EVERY DAY 30 tablet 1 0 Active Additional Information Patient not taking.Reported on 04/01/2020 METHOTREXATE 2.5 MG Oral tablet TAKE 3 PILLS EVERY WEEK ON THE SAME DAY OF THE WEEK. 36 tablet 2 0 Active predniSONE (DELTASONE) 5 MG tablet Take 1/2 pill PO daily along with her 10 mg Prednisone tablet for dose of 12.5 mg. After 3 weeks, taper to 10 mg Prednisone daily. 15 tablet 2 0 Active folic acid (FOLVITE) 1 MG tablet TAKE 1 TABLET BY MOUTH EVERY DAY 90 tablet 1 Active predniSONE (DELTASONE) 10 MG tablet TAKE 1 1/2 (ONE AND A HALF) TABLETS BY MOUTH DAILY 45 tablet 1 Active Active Problems Problem Noted Date Diagnosed Date Polymyalgia rheumatica 11/07/2019 Polyarthropathy 11/07/2019 Primary osteoarthritis of both hips 11/07/2019 Sleep disturbance 11/07/2019 Dry eyes 11/07/2019 Family History Medical History Relation Comments Coronary artery disease Father Coronary artery disease Maternal Grandfather Rheumatoid arthritis Maternal Grandmother Alzheimer's disease Mother Coronary artery disease Mother Coronary artery disease Paternal Grandfather Coronary artery disease Paternal Grandmother Stroke Paternal Grandmother Relation Status Comments Father Maternal Grandfather Maternal Grandmother Mother Paternal Grandfather Paternal Grandmother Social History Tobacco Use Types Packs/Day Years Used Date Smoking Tobacco: Never Smokeless Tobacco: Never Education Answer Date Recorded Are you interested in more education? Not on carlos e 10/06/2022 Are you concerned about learning? Not on file 10/06/2022 No 10/06/2022 No 10/06/2022 Digital Access Answer Date Recorded No 11/04/2022 No 11/04/2022 Reliable internet access at home? Not on file 11/04/2022 Device with a working camera? Not on file Comments Unknown Sex and Gender Information Value Date Recorded Sex Assigned at Not on file Legal Sex Female 10:10 PM EDT Gender Identity Not on file Sexual Orientation Not on file Last Filed Vital Signs Vital Sign Reading Time Taken Comments Blood Pressure - - Pulse - - Temperature - - Respiratory Rate - - Oxygen Saturation - - Inhaled Oxygen Concentration - - Weight 82.1 kg (181 lb) 04/29/2020 10:12 AM EST per patient Height 162.6 cm (5' 4.02 ) 04/29/2020 10:[address] Body Mass Index 31.05 04/29/2020 10:12 AM EST Plan of Treatment Health Maintenance Due Date Last Done Comments CREATININE LEVEL 1943 POTASSIUM LEVEL 1943 DEPRESSION SCREENING 1955 PNEUMOCOCCAL VACCINES (50+ years) (1 of 2 - PCV) 1962 ZOSTER VACCINES (1 of 2) 1962 OSTEOPOROSIS SCREENING INITI AL (ONE-TIME) 2008 RSV VACCINE (1 - 1-dose 75+ series) 2018 COVID-19 VACCINE (3 - Modern a risk series) 03/15/2021 02/15/2021, 01/17/2021 INFLUENZA VACCINE (#1) 2025 Adult Td,Tdap Booster 02/12/2030 02/13/2020 HEPATITIS A VACCINES Aged Out No long er eligible based on patient's age to complete this topic HIB VACCINES Aged Out No longer eligi ble based on patient's age to complete this topic IPV VACCINES Aged Out No longer eligi ble based on patient's age to complete this topic MENINGOCOCCAL VACCINES (ACWY) Aged Out No longer eligible based on patient's age to complete this topic MENINGOCOCCAL VACCINES (B) Aged Out N o longer eligible based on patient's age to complete this topic Medical Devices Not on file Insurance MEDICARE PART A & B [employer] MEDICARE SUPPLEMENT MEDICARE PART A & B [employer] MEDICARE SUPPLEMENT MEDICARE PART A & B [facility] MEDICARE SUPPLEMENT MEDICARE PART A & B [facility] MEDICARE SUPPLEMENT MEDICARE PART A & B [facility] MEDICARE SUPPLEMENT MEDICARE PART A & B [facility] MEDICARE SUPPLEMENT MEDICARE PART A & B [employer] MEDICARE SUPPLEMENT MEDICARE PART A & B [employer] MEDICARE SUPPLEMENT MEDICARE PART A & B Member Subscriber Plan / Payer (Ef fective 2006-Present) Name:Austin Daphnie Member ID:[id number] Relation to Subscriber:Self Name:Austin Daphnie Subscriber ID:[id number] Payer ID:[id number] Group ID:Not on file Type:Medicare Address: [facility] [place] [employer] [facility] [address] [place] [address] [employer] MEDICARE SUPPLEMENT Care Teams Targeteer Relationship Specialty Start Date End Date Jyothi Ayers MD PCP - General Internal Medicine 10/17/18 Additional Source Comments The information contained in this document represents components of the legal health record. It is not the complete legal health record.[facility]
--- OUTSIDE RECORDS SUMMARY | 2025-04-23 13:35 | XMS_ITS | Encounter Summary ---
Author Organization [facility] Address [address] [place] [address] Phone Care Team Providers Care Oversize Load Pilot Escort Name Role Phone Jyothi Ayers MD Primary Care Provider + Encounter Details Date Type Department Care Team (Late st Contact Info) Description 10/17/2018 Procedure Pass [address] [address] Social History Tobacco Use Types Packs/Day Years [...] Diagnoses Not on filedocumented in this encounter Care Teams Oversize Load Pilot Escort Relationship Specialty Start Date End Date Jyothi Ayers MD PCP - General Internal Medicine 10/17/18 documented as of this encounter Additional Source Comments The information contained in this document represents components of the legal health record. It is not the complete legal health record.[facility]
--- OUTSIDE RECORDS SUMMARY | 2025-04-23 13:35 | XMS_ITS | Encounter Summary ---
Author Organization [facility] Address [address] [place] [address] Care Team Providers Care Loader Operator/Ground Leader Name Role Phone Jyothi Ayers MD Primary Care Provider +1- [phone] Encounter Details Date Type Department Care Team (Late st Contact Info) Description 05/02/[address] [facility] - Main Lab [address] [facility] [place] [address] Petros Kumar MD [address] [place] [address] Essential (primary) hypertension Social History Tobacco Use [...] Associated Diagnosis Comments COMPLETE BLOOD COUNT Routine 2024 6:28 AM EST Essential (primary) hypertension BASIC METABOLIC PANEL Routine 2024 6:28 AM EST Essential (primary) hypertension documented in this encounter Results * (ABNORMAL) Basic metabolic panel (2024 6:28 AM EST) Sodium 143 133 - 145 mmol/L LAB CHEMISTRY METHOD 2024 4:21 PM EST [facility] Potassium 3.9 3.5 - 5.5 mmol/L LAB CHEMISTRY METHOD 2024 4:21 PM [facility] Chloride 107 96 - 110 mmol/L LAB CHEMISTRY METHOD 2024 4:21 PM [facility] CO2 28 21 - 32 mmol/L LAB CHEMISTRY METHOD 2024 4:21 PM [facility] Anion Gap 8 3 - 11 LAB CHEMISTRY METHOD 2024 4:21 PM [facility] Glucose 55(L) 70 - 100 mg/dL LAB CHEMISTRY METHOD 2024 4:21 PM [facility] BUN 9 5 - 25 mg/dL LAB CHEMISTRY METHOD 2024 4:21 PM [facility] Creatinine 0.49(L) 0.50 - 1.10 mg/dL LAB CHEMISTRY METHOD 2024 4:21 PM [facility] eGFR 95 >=60 mL/min/1. 73m2 LAB CHEMISTRY METHOD 2024 4:21 PM [facility] Comment:Calculation based on the Chronic Kidney Disease Epidemiology Collaboration (CKD-EPI) equation refit without adjustment for race. BUN/Creatinine Ratio 18.4 LAB CHEMISTRY METHOD 2024 4:21 PM [facility] Calcium 9.1 8.5 - 10.5 mg/dL LAB CHEMISTRY METHOD 2024 4:21 PM [facility] Blood Venous blood specimen / Unknown Venipuncture / Unknown 2024 6:28 AM EST 2024 11:52 AM EST us Petros Kumar MD LAB BLOOD ORDERABLES Final Resul t [facility] [address] [place] [address], * (ABNORMAL) Complete blood count (2024 6:28 AM EST) [facility] WBC 5.9 4.8 - 10.8 K/mcL LAB HEMETOLOGY METHOD 2024 1:19 PM [facility] RBC 3.80 3.80 - 4.80 M/mcL LAB HEMETOLOGY METHOD 2024 1:19 PM [facility] Hemoglobin 10.8(L) 11.5 - 16.0 g/dL LAB HEMETOLOGY METHOD 2024 1:19 PM [facility] Hematocrit 34.8(L) 35.0 - 47.0 % LAB HEMETOLOGY METHOD 2024 1:19 PM [facility] MCV 92.6 79.0 - 98.0 FL LAB HEMETOLOGY METHOD 2024 1:19 PM [facility] MCH 28.7 27.0 - 32.0 pcg LAB HEMETOLOGY METHOD 2024 1:19 PM [facility] MCHC 31.0(L) 32.0 - 37.0 g/dL LAB HEMETOLOGY METHOD 2024 1:19 PM [facility] RDW 12.6 11.0 - 15.0 % LAB HEMETOLOGY METHOD 2024 1:19 PM [facility] Platelets 202 130 - 400 K/mcL LAB HEMETOLOGY METHOD 2024 1:19 PM [facility] MPV 11.7(H) 7.0 - 11.0 FL LAB HEMETOLOGY METHOD 2024 1:19 PM [facility] NRBC 0.0 <1.0 % LAB HEMETOLOGY METHOD 2024 1:19 PM [facility] NRBC Absolute 0.00 <0.10 K/mcL LAB HEMETOLOGY METHOD 2024 1:19 PM EST [facility] Blood Venous blood specimen / Unknown Venipuncture / Unknown 2024 6:28 AM EST 2024 11:52 AM EST us Petros Kumar MD LAB BLOOD ORDERABLES Final Resul t [facility] [address] [place] [address], documented in this encounter Visit Diagnoses Diagnosis Essential (primary) hypertension Unspecified essential hypertension documented in this encounter Care Teams Loader Operator/Ground Leader Relationship Specialty Start Date End Date Jyothi Ayers MD [address] [place] [address] PCP - General 04/10/22 documented as of this encounter
--- OUTSIDE RECORDS SUMMARY | 2025-04-23 13:35 | XMS_ITS | Encounter Summary ---
Author Organization [facility] Address [address] [place] [address] Care Team Providers Care Assurance Senior Manager Name Role Phone Jyothi Ayers MD Primary Care Provider +1- [phone] Encounter Details Date Type Department Care Team (Late st Contact Info) Description 06/02/2024 Lab Requisition [facility] - Main Lab [address] [facility] [place] [address] Petros Kumra MD [address] [place] [address] Hypothyroidism, unspecified Social History Tobacco Use Types [...] Associated Diagnosis Comments COMPLETE BLOOD COUNT Routine 06/03/2024 6:32 AM EST Hypothyroidism, unspecified COMPREHENSIVE METABOLIC PANEL Routine 06/03/2024 6:32 AM EST Hypothyroidism, unspecified documented in this encounter Results * (ABNORMAL) Comprehensive metabolic panel (06/03/2024 6:32 AM EST) Sodium 141 133 - 145 mmol/L LAB CHEMISTRY METHOD 06/03/2024 10:28 AM EST [facility] Potassium 4.2 3.5 - 5.5 mmol/L LAB CHEMISTRY METHOD 06/03/2024 10:28 AM [facility] Chloride 104 96 - 110 mmol/L LAB CHEMISTRY METHOD 06/03/2024 10:28 AM [facility] CO2 33(H) 21 - 32 mmol/L LAB CHEMISTRY METHOD 06/03/2024 10:28 AM [facility] Anion Gap 4 3 - 11 LAB CHEMISTRY METHOD 06/03/2024 10:28 AM [facility] Glucose 100 70 - 100 mg/dL LAB CHEMISTRY METHOD 06/03/2024 10:28 AM [facility] BUN 9 5 - 25 mg/dL LAB CHEMISTRY METHOD 06/03/2024 10:28 AM [facility] Creatinine 0.54 0.50 - 1.10 mg/dL LAB CHEMISTRY METHOD 06/03/2024 10:28 AM [facility] eGFR 93 >=60 mL/min/1. 73m2 LAB CHEMISTRY METHOD 06/03/2024 10:28 AM [facility] Comment:Calculation based on the Chronic Kidney Disease Epidemiology Collaboration (CKD-EPI) equation refit without adjustment for race. BUN/Creatinine Ratio 16.7 LAB CHEMISTRY METHOD 06/03/2024 10:28 AM [facility] Calcium 8.9 8.5 - 10.5 mg/dL LAB CHEMISTRY METHOD 06/03/2024 10:28 AM [facility] AST (SGOT) 10 10 - 42 unit/L LAB CHEMISTRY METHOD 06/03/2024 10:28 AM [facility] ALT (SGPT) 9(L) 10 - 60 unit/L LAB CHEMISTRY METHOD 06/03/2024 10:28 AM [facility] Alkaline Phosphatase 69 42 - 121 unit/L LAB CHEMISTRY METHOD 06/03/2024 10:28 AM [facility] Total Protein 5.5(L) 6.0 - 8.0 g/dL LAB CHEMISTRY METHOD 06/03/2024 10:28 AM [facility] Albumin 2.5(L) 3.2 - 5.0 g/dL LAB CHEMISTRY METHOD 06/03/2024 10:28 AM [facility] Total Bilirubin 0.3 0.0 - 1.4 mg/dL LAB CHEMISTRY METHOD 06/03/2024 10:28 AM [facility] Blood Venous blood specimen / Unknown Venipuncture / Unknown 06/03/2024 6:32 AM EST 06/03/2024 9:22 AM EST us Petros Kumar MD LAB BLOOD ORDERABLES Final Resul t [facility] [address] [place] [address], * (ABNORMAL) Complete blood count (06/03/2024 6:32 AM EST) WBC 5.3 4.8 - 10.8 K/mcL LAB HEMETOLOGY METHOD 06/03/2024 9:59 AM [facility] RBC 3.70(L) 3.80 - 4.80 M/mcL LAB HEMETOLOGY METHOD 06/03/2024 9:59 AM [facility] Hemoglobin 10.1(L) 11.5 - 16.0 g/dL LAB HEMETOLOGY METHOD 06/03/2024 9:59 AM [facility] Hematocrit 32.6(L) 35.0 - 47.0 % LAB HEMETOLOGY METHOD 06/03/2024 9:59 AM [facility] MCV 88.8 79.0 - 98.0 FL LAB HEMETOLOGY METHOD 06/03/2024 9:59 AM [facility] MCH 27.5 27.0 - 32.0 pcg LAB HEMETOLOGY METHOD 06/03/2024 9:59 AM EST [facility] MCHC 31.0(L) 32.0 - 37.0 g/dL LAB HEMETOLOGY METHOD 06/03/2024 9:59 AM [facility] RDW 12.5 11.0 - 15.0 % LAB HEMETOLOGY METHOD 06/03/2024 9:59 AM [facility] Platelets 179 130 - 400 K/mcL LAB HEMETOLOGY METHOD 06/03/2024 9:59 AM [facility] MPV 11.3(H) 7.0 - 11.0 FL LAB HEMETOLOGY METHOD 06/03/2024 9:59 AM [facility] NRBC 0.0 <1.0 % LAB HEMETOLOGY METHOD 06/03/2024 9:59 AM [facility] NRBC Absolute 0.00 <0.10 K/mcL LAB HEMETOLOGY METHOD 06/03/2024 9:59 AM [facility] Blood Venous blood specimen / Unknown Venipuncture / Unknown 06/03/2024 6:32 AM EST 06/03/2024 9:22 AM EST us Petros Kumar MD LAB BLOOD ORDERABLES Final Resul t [facility] [address] [place] [address], documented in this encounter Visit Diagnoses Diagnosis Hypothyroidism, unspecified documented in this encounter Care Teams Assurance Senior Manager Relationship Specialty Start Date End Date Jyothi Ayers MD [address] [place] [address] PCP - General 04/10/22 documented as of this encounter
--- OUTSIDE RECORDS SUMMARY | 2025-04-23 13:35 | XMS_ITS | Encounter Summary ---
Author Organization [facility] Address [address] [place] [address] Care Team Providers Care Pattern Illustrator Name Role Phone Jyothi Ayers MD Primary Care Provider +1- [phone] Encounter Details Date Type Department Care Team (Late st Contact Info) Description 06/05/2024 Lab Requisition [facility] - Main Lab 299 [facility] [place] [address] Petros Kumar MD [address] [place] [address] Dysuria Social History Tobacco Use Types Packs/Day [...] Associated Diagnosis Comments URINALYSIS WITH REFLEX MICROSCOPIC Routine 06/04/2024 9:25 PM EST Dysuria URINALYSIS WITH REFLEX MICROSCOPIC Routine 06/04/2024 9:25 PM EST Dysuria CULTURE URINE Routine 06/04/2024 9:25 PM EST Dysuria documented in this encounter Results * Urinalysis with reflex microscopic (06/04/2024 9:25 PM EST) Specific [place] Urine 1.010 1.003 - 1.030 LAB URINALYSIS - AUTOMATED METHOD 06/05/2024 10:16 AM [facility] pH, Urine 6.0 5.0 - 8.0 pH LAB URINALYSIS - AUTOMATED METHOD 06/05/2024 10:16 AM [facility] Leukocytes, Urine Negative Negative LAB URINALYSIS - AUTOMATED METHOD 06/05/2024 10:16 AM [facility] Nitrite, Urine Negative Negative LAB URINALYSIS - AUTOMATED METHOD 06/05/2024 10:16 AM [facility] Protein, Urine Negative <=Trace mg/dL LAB URINALYSIS - AUTOMATED METHOD 06/05/2024 10:16 AM [facility] Glucose, Urine Negative Negative mg/dL LAB URINALYSIS - AUTOMATED METHOD 06/05/2024 10:16 AM [facility] Ketones, Urine Negative Negative mg/dL LAB URINALYSIS - AUTOMATED METHOD 06/05/2024 10:16 AM [facility] Urobilinogen, Urine 0.2 0.2 - 1.0 mg/dL LAB URINALYSIS - AUTOMATED METHOD 06/05/2024 10:16 AM [facility] Bilirubin, Urine Negative Negative LAB URINALYSIS - AUTOMATED METHOD 06/05/2024 10:16 AM [facility] Blood, Urine Negative Negative LAB URINALYSIS - AUTOMATED METHOD 06/05/2024 10:16 AM [facility] Urine Urine specimen obtained by clean catch procedure / Unknown Non-blood Collection / Unknown 06/04/2024 9:25 PM EST 06/05/2024 9:49 AM EST us Petros Kumar MD LAB URINE ORDERABLES Final Resul t [facility] [address] [place] [address], * Culture urine (06/04/2024 9:25 PM EST) Culture, Urine No growth 06/06/2024 7:35 AM EST [facility] Urine Urine specimen obtained by clean catch procedure / Unknown Non-blood Collection / Unknown 06/04/2024 9:25 PM EST 06/05/2024 9:49 AM EST us Petros Kumar MD LAB MICROBIOLOGY - GENERAL ORDER ENRRIQUE Final Result [facility] [address] [place] [address], documented in this encounter Visit Diagnoses Diagnosis Dysuria documented in this encounter Care Teams Pattern Illustrator Relationship Specialty Start Date End Date Jyothi Ayers MD [address] [place] [address] PCP - General 04/10/22 documented as of this encounter
--- OUTSIDE RECORDS SUMMARY | 2025-04-23 13:35 | XMS_ITS | Encounter Summary ---
Author Organization [facility] Address [address] [place] [address] Care Team Providers Care Glue Jointer Operator Name Role Phone Jyothi Ayers MD Primary Care Provider +1- [phone] Encounter Details Date Type Department Care Team (Late st Contact Info) Description 05/21/2024 Lab Requisition [facility] - Main Lab 299 [facility] [place] [address] Petros Kumar MD [address] [place] [address] Urinary tract infection, site not specified Social History Tobacco Use Types Packs/Day Years [...] Associated Diagnosis Comments COMPLETE BLOOD COUNT Routine 05/21/2024 6:50 AM EST Urinary tract infection, site not specified THYROID STIMULATING HORMONE Routine 05/21/2024 6:50 AM EST Urinary tract infection, site not specified FOLATE Routine 05/21/2024 6:50 AM EST Urinary tract infection, site not specified VITAMIN B12 Routine 05/21/2024 6:50 AM EST Urinary tract infection, site not specified COMPREHENSIVE METABOLIC PANEL Routine 05/21/2024 6:50 AM EST Urinary tract infection, site not specified documented in this encounter Results * (ABNORMAL) Folate (05/21/2024 6:50 AM EST) [facility] Folate 19.3(H) 2.8 - 17.0 ng/ml LAB CHEMISTRY METHOD 05/21/2024 12:04 PM EST [facility] Blood Venous blood specimen / Unknown Venipuncture / Unknown 05/21/2024 6:50 AM EST 05/21/2024 9:07 AM EST us Petros Kumar MD LAB BLOOD ORDERABLES Final Resul t Performing Organization Address [facility] Co de Phone Number [facility] [address] [place] [address], [place] [phone] * Vitamin B12 (05/21/2024 6:50 AM EST) [facility] Vitamin B-12 520 250 - 900 pcg/mL LAB CHEMISTRY METHOD 05/21/2024 12:04 PM EST [facility] Blood Venous blood specimen / Unknown Venipuncture / Unknown 05/21/2024 6:50 AM EST 05/21/2024 9:07 AM EST us Petros Kumar MD LAB BLOOD ORDERABLES Final Resul t Performing Organization Address City/[facility]/ZIP Co de Phone Number [facility] [address] [place] [address], [place] [phone] * Thyroid stimulating hormone (05/21/2024 6:50 AM EST) [facility] TSH 1.31 0.40 - 4.00 mcIU/mL LAB CHEMISTRY METHOD 05/21/2024 10:27 AM EST [facility] Blood Venous blood specimen / Unknown Venipuncture / Unknown 05/21/2024 6:50 AM EST 05/21/2024 9:07 AM EST us Petros Kumar MD LAB BLOOD ORDERABLES Final Resul t [facility] [address] [place] [address], [place] [phone] * (ABNORMAL) Comprehensive metabolic panel (05/21/2024 6:50 AM EST) Sodium 138 133 - 145 mmol/L LAB CHEMISTRY METHOD 05/21/2024 12:04 PM [facility] Potassium 4.0 3.5 - 5.5 mmol/L LAB CHEMISTRY METHOD 05/21/2024 12:04 PM [facility] Chloride 101 96 - 110 mmol/L LAB CHEMISTRY METHOD 05/21/2024 12:04 PM [facility] CO2 30 21 - 32 mmol/L LAB CHEMISTRY METHOD 05/21/2024 12:04 PM [facility] Anion Gap 7 3 - 11 LAB CHEMISTRY METHOD 05/21/2024 12:04 PM [facility] Glucose 108(H) 70 - 100 mg/dL LAB CHEMISTRY METHOD 05/21/2024 12:04 PM [facility] BUN 10 5 - 25 mg/dL LAB CHEMISTRY METHOD 05/21/2024 12:04 PM [facility] Creatinine 0.46(L) 0.50 - 1.10 mg/dL LAB CHEMISTRY METHOD 05/21/2024 12:04 PM [facility] eGFR 96 >=60 mL/min/1. 73m2 LAB CHEMISTRY METHOD 05/21/2024 12:04 PM [facility] Comment:Calculation based on the Chronic Kidney Disease Epidemiology Collaboration (CKD-EPI) equation refit without adjustment for race. BUN/Creatinine Ratio 21.7 LAB CHEMISTRY METHOD 05/21/2024 12:04 PM [facility] Calcium 9.5 8.5 - 10.5 mg/dL LAB CHEMISTRY METHOD 05/21/2024 12:04 PM [facility] AST (SGOT) 10 10 - 42 unit/L LAB CHEMISTRY METHOD 05/21/2024 12:04 PM [facility] ALT (SGPT) 7(L) 10 - 60 unit/L LAB CHEMISTRY METHOD 05/21/2024 12:04 PM [facility] Alkaline Phosphatase 68 42 - 121 unit/L LAB CHEMISTRY METHOD 05/21/2024 12:04 PM [facility] Total Protein 6.0 6.0 - 8.0 g/dL LAB CHEMISTRY METHOD 05/21/2024 12:04 PM [facility] Albumin 2.7(L) 3.2 - 5.0 g/dL LAB CHEMISTRY METHOD 05/21/2024 12:04 PM [facility] Total Bilirubin 0.2 0.0 - 1.4 mg/dL LAB CHEMISTRY METHOD 05/21/2024 12:04 PM [facility] Blood Venous blood specimen / Unknown Venipuncture / Unknown 05/21/2024 6:50 AM EST 05/21/2024 9:07 AM EST us Petros Kumar MD LAB BLOOD ORDERABLES Final Resul t [facility] [address] [place] [address], * (ABNORMAL) Complete blood count (05/21/2024 6:50 AM EST) WBC 3.7(L) 4.8 - 10.8 K/mcL LAB HEMETOLOGY METHOD 05/21/2024 9:49 AM [facility] RBC 3.90 3.80 - 4.80 M/mcL LAB HEMETOLOGY METHOD 05/21/2024 9:49 AM [facility] Hemoglobin 11.1(L) 11.5 - 16.0 g/dL LAB HEMETOLOGY METHOD 05/21/2024 9:49 AM [facility] Hematocrit 35.1 35.0 - 47.0 % LAB HEMETOLOGY METHOD 05/21/2024 9:49 AM [facility] MCV 89.3 79.0 - 98.0 FL LAB HEMETOLOGY METHOD 05/21/2024 9:49 AM [facility] MCH 28.2 27.0 - 32.0 pcg LAB HEMETOLOGY METHOD 05/21/2024 9:49 AM [facility] MCHC 31.6(L) 32.0 - 37.0 g/dL LAB HEMETOLOGY METHOD 05/21/2024 9:49 AM [facility] RDW 12.4 11.0 - 15.0 % LAB HEMETOLOGY METHOD 05/21/2024 9:49 AM [facility] Platelets 161 130 - 400 K/mcL LAB HEMETOLOGY METHOD 05/21/2024 9:49 AM [facility] MPV 11.6(H) 7.0 - 11.0 FL LAB HEMETOLOGY METHOD 05/21/2024 9:49 AM [facility] NRBC 0.0 <1.0 % LAB HEMETOLOGY METHOD 05/21/2024 9:49 AM [facility] NRBC Absolute 0.00 <0.10 K/mcL LAB HEMETOLOGY METHOD 05/21/2024 9:49 AM [facility] Blood Venous blood specimen / Unknown Venipuncture / Unknown 05/21/2024 6:50 AM EST 05/21/2024 9:07 AM EST us Petros Kumar MD LAB BLOOD ORDERABLES Final Resul t [facility] LAB [address] [place] [address], documented in this encounter Visit Diagnoses Diagnosis Urinary tract infection, site not specified documented in this encounter Care Teams Glue Jointer Operator Relationship Specialty Start Date End Date Jyothi Ayers MD [address] [place] [address] PCP - General 04/10/22 documented as of this encounter
--- OUTSIDE RECORDS SUMMARY | 2025-04-23 13:35 | XMS_ITS | Encounter Summary ---
Author Organization [facility] Address [address] [place] [address] Care Team Providers Care Printing Assistant Name Role Phone Jyothi Ayers MD Primary Care Provider +1- [phone] Encounter Details Date Type Department Care Team (Late st Contact Info) Description 04/14/2024 Lab Requisition [facility] - Main Lab 299 [facility] [place] [address] Petros Kumar MD [address] [place] [address] Essential (primary) hypertension Social History Tobacco Use [...] Procedure Name Priority Date/Time Associated Diagnosis Comments TRAVEL PHLEBOTOMY FEE Routine 04/14/2024 6:53 AM EST Essential (primary) hypertension VITAMIN B12 AND FOLATE Routine 04/14/2024 6:53 AM EST Essential (primary) hypertension COMPLETE BLOOD COUNT Routine 04/14/2024 6:53 AM EST Essential (primary) hypertension THYROID STIMULATING HORMONE Routine 04/14/2024 6:53 AM EST Essential (primary) hypertension COMPREHENSIVE METABOLIC PANEL Routine 04/14/2024 6:53 AM EST Essential (primary) hypertension documented in this encounter Results * Travel phlebotomy fee (04/14/2024 6:53 AM EST) [facility] TRAVEL PHLEBOTOMY FEE Completed 04/14/2024 11:02 AM EST [facility] Blood Venous blood specimen / Unknown Venipuncture / Unknown 04/14/2024 6:53 AM EST 04/14/2024 10:33 AM EST us Petros Kumar MD LAB BLOOD ORDERABLES Final Resul t Performing Organization Address [facility]/ZIP Co de Phone Number [facility] [address] [place] [address], [place] [phone] * (ABNORMAL) Vitamin B12 and folate (04/14/2024 6:53 AM EST) [facility] Vitamin B-12 645 250 - 900 pcg/mL LAB CHEMISTRY METHOD 04/14/2024 12:24 PM [facility] Folate >20.0(H) 2.8 - 17.0 ng/ml LAB CHEMISTRY METHOD 04/14/2024 12:24 PM EST [facility] Blood Venous blood specimen / Unknown Venipuncture / Unknown 04/14/2024 6:53 AM EST 04/14/2024 10:33 AM EST us Petros Kumar MD LAB BLOOD ORDERABLES Final Resul t Performing Organization Address [facility]/ZIP Co de Phone Number [facility] [address] [place] [address], [place] [phone] * Thyroid stimulating hormone (04/14/2024 6:53 AM EST) [facility] TSH 0.79 0.40 - 4.00 mcIU/mL LAB CHEMISTRY METHOD 04/14/2024 12:08 PM EST [facility] Blood Venous blood specimen / Unknown Venipuncture / Unknown 04/14/2024 6:53 AM EST 04/14/2024 10:33 AM EST Petros Kumar MD LAB BLOOD ORDERABLES Final Resul t [facility] [address] [place] [address], * (ABNORMAL) Comprehensive metabolic panel (04/14/2024 6:53 AM EST) Sodium 141 133 - 145 mmol/L LAB CHEMISTRY METHOD 04/14/2024 12:24 PM [facility] Potassium 3.7 3.5 - 5.5 mmol/L LAB CHEMISTRY METHOD 04/14/2024 12:24 PM [facility] Chloride 106 96 - 110 mmol/L LAB CHEMISTRY METHOD 04/14/2024 12:24 PM [facility] CO2 30 21 - 32 mmol/L LAB CHEMISTRY METHOD 04/14/2024 12:24 PM [facility] Anion Gap 5 3 - 11 LAB CHEMISTRY METHOD 04/14/2024 12:24 PM [facility] Glucose 132(H) 70 - 100 mg/dL LAB CHEMISTRY METHOD 04/14/2024 12:24 PM [facility] BUN 7 5 - 25 mg/dL LAB CHEMISTRY METHOD 04/14/2024 12:24 PM [facility] Creatinine 0.54 0.50 - 1.10 mg/dL LAB CHEMISTRY METHOD 04/14/2024 12:24 PM [facility] eGFR 93 >=60 mL/min/1. 73m2 LAB CHEMISTRY METHOD 04/14/2024 12:24 PM [facility] Comment:Calculation based on the Chronic Kidney Disease Epidemiology Collaboration (CKD-EPI) equation refit without adjustment for race. BUN/Creatinine Ratio 13.0 LAB CHEMISTRY METHOD 04/14/2024 12:24 PM [facility] Calcium 9.2 8.5 - 10.5 mg/dL LAB CHEMISTRY METHOD 04/14/2024 12:24 PM [facility] AST (SGOT) 20 10 - 42 unit/L LAB CHEMISTRY METHOD 04/14/2024 12:24 PM [facility] ALT (SGPT) 10 10 - 60 unit/L LAB CHEMISTRY METHOD 04/14/2024 12:24 PM [facility] Alkaline Phosphatase 75 42 - 121 unit/L LAB CHEMISTRY METHOD 04/14/2024 12:24 PM [facility] Total Protein 6.2 6.0 - 8.0 g/dL LAB CHEMISTRY METHOD 04/14/2024 12:24 PM [facility] Albumin 3.0(L) 3.2 - 5.0 g/dL LAB CHEMISTRY METHOD 04/14/2024 12:24 PM [facility] Total Bilirubin 0.3 0.0 - 1.4 mg/dL LAB CHEMISTRY METHOD 04/14/2024 12:24 PM [facility] Blood Venous blood specimen / Unknown Venipuncture / Unknown 04/14/2024 6:53 AM EST 04/14/2024 10:33 AM EST us Petros Kumar MD LAB BLOOD ORDERABLES Final Resul t [facility] [address] [place] [address], * (ABNORMAL) Complete blood count (04/14/2024 6:53 AM EST) WBC 4.8 4.8 - 10.8 K/mcL LAB HEMETOLOGY METHOD 04/14/2024 11:29 AM EST [facility] RBC 3.80 3.80 - 4.80 M/mcL LAB HEMETOLOGY METHOD 04/14/2024 11:29 AM [facility] Hemoglobin 11.1(L) 11.5 - 16.0 g/dL LAB HEMETOLOGY METHOD 04/14/2024 11:29 AM [facility] Hematocrit 35.4 35.0 - 47.0 % LAB HEMETOLOGY METHOD 04/14/2024 11:29 AM [facility] MCV 93.4 79.0 - 98.0 FL LAB HEMETOLOGY METHOD 04/14/2024 11:29 AM [facility] MCH 29.3 27.0 - 32.0 pcg LAB HEMETOLOGY METHOD 04/14/2024 11:29 AM [facility] MCHC 31.4(L) 32.0 - 37.0 g/dL LAB HEMETOLOGY METHOD 04/14/2024 11:29 AM [facility] RDW 13.3 11.0 - 15.0 % LAB HEMETOLOGY METHOD 04/14/2024 11:29 AM [facility] Platelets 200 130 - 400 K/mcL LAB HEMETOLOGY METHOD 04/14/2024 11:29 AM [facility] MPV 11.9(H) 7.0 - 11.0 FL LAB HEMETOLOGY METHOD 04/14/2024 11:29 AM [facility] NRBC 0.0 <1.0 % LAB HEMETOLOGY METHOD 04/14/2024 11:29 AM [facility] NRBC Absolute 0.00 <0.10 K/mcL LAB HEMETOLOGY METHOD 04/14/2024 11:29 AM [facility] Blood Venous blood specimen / Unknown Venipuncture / Unknown 04/14/2024 6:53 AM EST 04/14/2024 10:33 AM EST Petros Kumar MD LAB BLOOD ORDERABLES Final [facility]ul t [facility] ([facility] H[facility] LAB [address] [place] [address], documented in this encounter Visit Diagnoses Diagnosis Essential (primary) hypertension Unspecified essential hypertension documented in this encounter Care Teams Printing Assistant Relationship Specialty Start Date End Date Jyothi Ayers MD [address] [place] [address] PCP - General 04/10/22 documented as of this encounter
--- OUTSIDE RECORDS SUMMARY | 2025-04-23 13:35 | XMS_ITS | Encounter Summary ---
Author Organization [facility] Address [address] [place] [address] Care Team Providers Care Attorney General Name Role Phone Jyothi Ayers MD Primary Care Provider +1- [phone] Encounter Details Date Type Department Care Team (Late st Contact Info) Description 06/09/2024 Lab Requisition [facility] - Main Lab [address] [facility] [place] [address] Petros Kumar MD [address] [place] [address] Hypothyroidism, unspecified Social History Tobacco Use Types [...] Associated Diagnosis Comments COMPLETE BLOOD COUNT Routine 06/10/2024 6:31 AM EST Hypothyroidism, unspecified COMPREHENSIVE METABOLIC PANEL Routine 06/10/2024 6:31 AM EST Hypothyroidism, unspecified documented in this encounter Results * (ABNORMAL) Comprehensive metabolic panel (06/10/2024 6:31 AM EST) Sodium 140 133 - 145 mmol/L LAB CHEMISTRY METHOD 06/10/2024 11:59 AM EST [facility] ([facility] Potassium 4.2 3.5 - 5.5 mmol/L LAB CHEMISTRY METHOD 06/10/2024 11:59 AM [facility] Chloride 102 96 - 110 mmol/L LAB CHEMISTRY METHOD 06/10/2024 11:59 AM [facility] CO2 34(H) 21 - 32 mmol/L LAB CHEMISTRY METHOD 06/10/2024 11:59 AM [facility] Anion Gap 4 3 - 11 LAB CHEMISTRY METHOD 06/10/2024 11:59 AM [facility] Glucose 88 70 - 100 mg/dL LAB CHEMISTRY METHOD 06/10/2024 11:59 AM [facility] BUN 13 5 - 25 mg/dL LAB CHEMISTRY METHOD 06/10/2024 11:59 AM [facility] Creatinine 0.61 0.50 - 1.10 mg/dL LAB CHEMISTRY METHOD 06/10/2024 11:59 AM [facility] eGFR 90 >=60 mL/min/1. 73m2 LAB CHEMISTRY METHOD 06/10/2024 11:59 AM [facility] Comment:Calculation based on the Chronic Kidney Disease Epidemiology Collaboration (CKD-EPI) equation refit without adjustment for race. BUN/Creatinine Ratio 21.3 LAB CHEMISTRY METHOD 06/10/2024 11:59 AM [facility] Calcium 8.6 8.5 - 10.5 mg/dL LAB CHEMISTRY METHOD 06/10/2024 11:59 AM [facility] AST (SGOT) 12 10 - 42 unit/L LAB CHEMISTRY METHOD 06/10/2024 11:59 AM [facility] ALT (SGPT) 12 10 - 60 unit/L LAB CHEMISTRY METHOD 06/10/2024 11:59 AM [facility] Alkaline Phosphatase 65 42 - 121 unit/L LAB CHEMISTRY METHOD 06/10/2024 11:59 AM [facility] Total Protein 5.4(L) 6.0 - 8.0 g/dL LAB CHEMISTRY METHOD 06/10/2024 11:59 AM [facility] Albumin 2.6(L) 3.2 - 5.0 g/dL LAB CHEMISTRY METHOD 06/10/2024 11:59 AM [facility] Total Bilirubin 0.2 0.0 - 1.4 mg/dL LAB CHEMISTRY METHOD 06/10/2024 11:59 AM [facility] Blood Venous blood specimen / Unknown Venipuncture / Unknown 06/10/2024 6:31 AM EST 06/10/2024 10:22 AM EST us Petros Kumar MD LAB BLOOD ORDERABLES Final Resul t [facility] [address] [place] [address], [place] [phone] * (ABNORMAL) Complete blood count (06/10/2024 6:31 AM EST) WBC 4.4(L) 4.8 - 10.8 K/mcL LAB HEMETOLOGY METHOD 06/10/2024 11:26 AM [facility] RBC 3.70(L) 3.80 - 4.80 M/mcL LAB HEMETOLOGY METHOD 06/10/2024 11:26 AM [facility] Hemoglobin 10.0(L) 11.5 - 16.0 g/dL LAB HEMETOLOGY METHOD 06/10/2024 11:26 AM [facility] Hematocrit 33.2(L) 35.0 - 47.0 % LAB HEMETOLOGY METHOD 06/10/2024 11:26 AM [facility] MCV 91.0 79.0 - 98.0 FL LAB HEMETOLOGY METHOD 06/10/2024 11:26 AM [facility] MCH 27.4 27.0 - 32.0 pcg LAB HEMETOLOGY METHOD 06/10/2024 11:26 AM EST [facility] MCHC 30.1(L) 32.0 - 37.0 g/dL LAB HEMETOLOGY METHOD 06/10/2024 11:26 AM [facility] RDW 13.0 11.0 - 15.0 % LAB HEMETOLOGY METHOD 06/10/2024 11:26 AM [facility] Platelets 162 130 - 400 K/mcL LAB HEMETOLOGY METHOD 06/10/2024 11:26 AM [facility] MPV 11.7(H) 7.0 - 11.0 FL LAB HEMETOLOGY METHOD 06/10/2024 11:26 AM [facility] NRBC 0.0 <1.0 % LAB HEMETOLOGY METHOD 06/10/2024 11:26 AM [facility] NRBC Absolute 0.00 <0.10 K/mcL LAB HEMETOLOGY METHOD 06/10/2024 11:26 AM [facility] Blood Venous blood specimen / Unknown Venipuncture / Unknown 06/10/2024 6:31 AM EST 06/10/2024 10:22 AM EST us Petros Kumar MD LAB BLOOD ORDERABLES Final Resul t [facility] [address] [place] [address], documented in this encounter Visit Diagnoses Diagnosis Hypothyroidism, unspecified documented in this encounter Care Teams Attorney General Relationship Specialty Start Date End Date Jyothi Ayers MD [address] [place] [address] PCP - General 04/10/22 documented as of this encounter
--- OUTSIDE RECORDS SUMMARY | 2025-04-23 13:35 | XMS_ITS | Encounter Summary ---
Author Organization [facility] Address [address] [place] [address] Care Team Providers Care Operations Recruiter Name Role Phone Jyothi Ayers MD Primary Care Provider +1- [phone] Encounter Details Date Type Department Care Team (Late st Contact Info) Description 06/16/2024 Lab Requisition [facility] - Main Lab [address] [facility] [place] [address] Petros Kumar MD [address] [place] [address] Hypothyroidism, unspecified Social History Tobacco Use Types [...] Associated Diagnosis Comments COMPLETE BLOOD COUNT Routine 06/17/2024 7:10 AM EST Hypothyroidism, unspecified COMPREHENSIVE METABOLIC PANEL Routine 06/17/2024 7:10 AM EST Hypothyroidism, unspecified documented in this encounter Results * (ABNORMAL) Comprehensive metabolic panel (06/17/2024 7:10 AM EST) Sodium 139 133 - 145 mmol/L LAB CHEMISTRY METHOD 06/17/2024 11:20 AM EST [facility] Potassium 4.0 3.5 - 5.5 mmol/L LAB CHEMISTRY METHOD 06/17/2024 11:20 AM [facility] Chloride 104 96 - 110 mmol/L LAB CHEMISTRY METHOD 06/17/2024 11:20 AM [facility] CO2 31 21 - 32 mmol/L LAB CHEMISTRY METHOD 06/17/2024 11:20 AM [facility] Anion Gap 4 3 - 11 LAB CHEMISTRY METHOD 06/17/2024 11:20 AM [facility] Glucose 83 70 - 100 mg/dL LAB CHEMISTRY METHOD 06/17/2024 11:20 AM [facility] BUN 12 5 - 25 mg/dL LAB CHEMISTRY METHOD 06/17/2024 11:20 AM [facility] Creatinine 0.63 0.50 - 1.10 mg/dL LAB CHEMISTRY METHOD 06/17/2024 11:20 AM [facility] eGFR 89 >=60 mL/min/1. 73m2 LAB CHEMISTRY METHOD 06/17/2024 11:20 AM [facility] Comment:Calculation based on the Chronic Kidney Disease Epidemiology Collaboration (CKD-EPI) equation refit without adjustment for race. BUN/Creatinine Ratio 19.0 LAB CHEMISTRY METHOD 06/17/2024 11:20 AM [facility] Calcium 8.8 8.5 - 10.5 mg/dL LAB CHEMISTRY METHOD 06/17/2024 11:20 AM [facility] AST (SGOT) 6(L) 10 - 42 unit/L LAB CHEMISTRY METHOD 06/17/2024 11:20 AM [facility] ALT (SGPT) 10 10 - 60 unit/L LAB CHEMISTRY METHOD 06/17/2024 11:20 AM [facility] Alkaline Phosphatase 68 42 - 121 unit/L LAB CHEMISTRY METHOD 06/17/2024 11:20 AM [facility] Total Protein 5.6(L) 6.0 - 8.0 g/dL LAB CHEMISTRY METHOD 06/17/2024 11:20 AM [facility] Albumin 2.6(L) 3.2 - 5.0 g/dL LAB CHEMISTRY METHOD 06/17/2024 11:20 AM [facility] Total Bilirubin 0.2 0.0 - 1.4 mg/dL LAB CHEMISTRY METHOD 06/17/2024 11:20 AM [facility] Blood Venous blood specimen / Unknown Venipuncture / Unknown 06/17/2024 7:10 AM EST 06/17/2024 9:19 AM EST us Petros Kumar MD LAB BLOOD ORDERABLES Final Resul t [facility] [address] [place] [address], [place] [phone] * (ABNORMAL) Complete blood count (06/17/2024 7:10 AM EST) WBC 4.9 4.8 - 10.8 K/mcL LAB HEMETOLOGY METHOD 06/17/2024 11:01 AM [facility] RBC 3.80 3.80 - 4.80 M/mcL LAB HEMETOLOGY METHOD 06/17/2024 11:01 AM [facility] Hemoglobin 10.4(L) 11.5 - 16.0 g/dL LAB HEMETOLOGY METHOD 06/17/2024 11:01 AM [facility] Hematocrit 32.8(L) 35.0 - 47.0 % LAB HEMETOLOGY METHOD 06/17/2024 11:01 AM [facility] MCV 87.0 79.0 - 98.0 FL LAB HEMETOLOGY METHOD 06/17/2024 11:01 AM [facility] MCH 27.6 27.0 - 32.0 pcg LAB HEMETOLOGY METHOD 06/17/2024 11:01 AM [facility] MCHC 31.7(L) 32.0 - 37.0 g/dL LAB HEMETOLOGY METHOD 06/17/2024 11:01 AM [facility] RDW 13.0 11.0 - 15.0 % LAB HEMETOLOGY METHOD 06/17/2024 11:01 AM [facility] Platelets 183 130 - 400 K/mcL LAB HEMETOLOGY METHOD 06/17/2024 11:01 AM [facility] MPV 11.4(H) 7.0 - 11.0 FL LAB HEMETOLOGY METHOD 06/17/2024 11:01 AM [facility] NRBC 0.0 <1.0 % LAB HEMETOLOGY METHOD 06/17/2024 11:01 AM [facility] NRBC Absolute 0.00 <0.10 K/mcL LAB HEMETOLOGY METHOD 06/17/2024 11:01 AM [facility] Blood Venous blood specimen / Unknown Venipuncture / Unknown 06/17/2024 7:10 AM EST 06/17/2024 9:19 AM EST Petros Kumar MD LAB BLOOD ORDERABLES Final Resul t [facility] [address] [place] [address], documented in this encounter Visit Diagnoses Diagnosis Hypothyroidism, unspecified documented in this encounter Care Teams Operations Recruiter Relationship Specialty Start Date End Date Jyothi Ayers MD [address] [place] [address] PCP - General 04/10/22 documented as of this encounter
--- OUTSIDE RECORDS SUMMARY | 2025-04-23 13:35 | XMS_ITS ---
Author Organization [facility] Nursing Care Team Providers Care Surgery Tech Name Role Phone Charlie See Unavailable Unavailable Triston Soni Unavailable Unavailable Ariana Humphreys Unavailable Unavailable Suki Miller Unavailable Unavailable Allergies and adverse reactions Code CodeSystem Substance Reaction Severity StartDate Concern Status 868447090 SNOMED CT Banana Diarrhea (code- 53078967, SNOMED CT) Mild 12/18/[address] Chocolate Eruption (code- 256676512, SNOMED CT) Mild 12/18/2023 active 42962 RXNORM Gabapentin Urticaria (code- 237856316, SNOMED CT) Mild 12/18/2023 active 4623143 RXNORM Latex Swelling (code- 14634361, SNOMED CT) Mild 12/18/2023 active 7454 RXNORM Macrobid Mild 12/18/2023 active 7984 RXNORM Penicillin Unknown 12/18/[address] Shell Fish Unknown 12/18/[address] Sulfa Antibiotics Unknown 12/18/2023 active 66643 RXNORM Tetracycline Unknown 12/18/[address] Tomato Diarrhea (code- 71664380, SNOMED CT) Mild 12/18/2023 active 64704 RXNORM Zofran Mild 12/18/2023 active Care Team Name Role Address Phone Organization Dates Suki Miller PCP [address] [facility] [address], [place], [address], [facility] (Office): : [facility] 12/18/2023 - 01/23/2024 Charlie See [address] [place] [address], [phone], [facility] (Office): [facility] 12/18/2023 - 01/23/2024 Triston Soni [address] [address], [place], [address], [facility] (Office): : : [facility] 12/18/2023 - 01/23/2024 Ariana Humphreys [address] [facility], [place], [address], [facility] (Office): : [facility] 12/18/2023 - 01/23/2024 Goals Section Goals Description Status Target Date Tollhouse my code status wishes through next review Active 03/19/2024 I will be compliant with lab s & diagnostics if ordered by my doctor through the review date. Active 03/19/2024 I will be compliant with lab s & diagnostics if ordered by my doctor through the review date. Active 03/19/2024 I will be compliant with lab s & diagnostics if ordered by my doctor through the review date. Active 03/19/2024 I will be compliant with lab s & diagnostics if ordered by my doctor through the review date. Active 03/19/2024 I will be compliant with lab s & diagnostics if ordered by my doctor through the review date. Active 03/19/2024 I will be free of falls through the review date. Active 03/19/2024 I will be free of major decl ine in ADL status through the review date. Active 03/19/2024 I will express satisfaction with the type of activities I am involved in when asked through the review date. Active 2023 I will have a formed stool every 3 days Active 03/19/2024 I will have improved mood st ate (happier, calmer appearance, no s/sx of depression, anxiety or sadness) through the review date. Active 03/19/2024 I will show a decrease in be havior episodes through the review date. Active 03/19/2024 I will verbalize adequate re lief of pain or ability to cope with incompletely relieved pain through the review date. Active Mental Status Section Date Assessment Total Score Description 01/23/2024 BIMS 15 cognitively int act CAM 0 No delirium ind icated PHQ-9 10 moderate depres farzana 12/22/2023 BIMS 13 cognitively int act CAM 0 No delirium ind icated PHQ-9 01 minimal depress ion Insurance Providers Plan of Treatment Section Interventions Intervention Code Code System Display Name Proposed D ate Problems Problem # Description Date of onset Resolved Date Code CodeSystem Concern Status 1 ADULT FAILURE TO THRIVE 12/18/[address] active 2 CHRONIC OBSTRUCTIVE PULMONARY DISEASE, UNSPECIFIED 12/18/[address] active 3 CONSTIPATION, UNSPECIFIED 12/18/[address] active 4 DEPRESSION, UNSPECIFIED 12/18/[address] active 5 EPIGASTRIC PAIN 12/18/[address] ac tive 6 ESSENTIAL (PRIMARY) HYPERTENSION 12/18/[address] active 7 HYPERLIPIDEMIA, UNSPECIFIED 12/18/[address] active 8 HYPO-OSMOLALITY AND HYPONATREMIA 12/18/[address] active 9 HYPOTHYROIDISM, UNSPECIFIED 12/18/[address] active 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 12/18/[address] active 11 OTHER ABNORMALITIES OF GAIT AND MOBILITY 12/18/[address] active 12 OTHER CHRONIC PAIN 12/18/[address] active 13 OTHER SPECIFIED ANXIETY DISORDERS 12/18/[address] active 14 PAIN IN RIGHT HIP 12/18/[address] active 15 PERSONAL HISTORY OF URINARY (TRACT) INFECTIONS 12/18/[address] active 16 POLYMYALGIA RHEUMATICA 12/18/[address] active 17 PRIMARY OSTEOARTHRITIS, UNSPECIFIED SITE 12/18/[address] active 18 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 12/18/[address] active 19 RHEUMATOID ARTHRITIS, UNSPECIFIED 12/18/[address] active 20 TYPE 2 DIABETES MELLITUS WITHOUT COMPLICATIONS 12/18/[address] active 21 UNSPECIFIED ASTHMA, UNCOMPLICATED 12/18/[address] active 22 URINARY TRACT INFECTION, SITE NOT SPECIFIED 12/18/[address] active 23 WEAKNESS 12/18/[address] active Reason for Referral No Reasons for Referral Entered Social History Social History Observation Description Start Date End Date Code Code System Current Smoking Status Tobacco smoking consumption unknown 121039946 SNOMED CT Sex Assigned At Female 1945 31033-0 [facility] Gender Identity Sexual Orientation Vital Signs Code Code System Vitals Name Values and Units Timing Information 2339-0 [facility] Blood Sugar Syldl=722.0 Units=mg/dL 01/23/2024 06253-8 [facility] Pain Level Value=3.0 01/23/2024 9279-1 [facility] Respiratory Rate Value=18.0 Units=/m in 01/23/2024 8867-4 [facility] Heart rate Value=76.0 Units=/min 34013-6 [facility] O2 % BldC Oximetry Value=98.0 Units= % 01/23/2024 8462-4 [facility] Blood Pressure-Diastolic Value=63 Un its=mmHg 01/23/2024 8480-6 [facility] Blood Pressure-Systolic Fgeqs=881 Un its=mmHg 01/23/2024 8310-5 [facility] Body Temperature Value=97.4 Units= F 01/23/2024 09969-4 [facility] Weight Luqrm=439.5 Units=Lbs 11/2023 8302-2 [facility] Height Value=63.0 Units=Inches 12/18/2023
--- OUTSIDE RECORDS SUMMARY | 2025-04-23 13:35 | XMS_ITS | Encounter Summary ---
Author Organization [facility] Address [address] [facility] [address] [place] [address] Phone Care Team Providers Care Jig Worker Name Role Phone Jyothi Ayers MD Primary Care Provider + Encounter Details Date Type Department Care Team (Late st Contact Info) Description 10/17/2018 Ancillary Orders [facility], X-Ray - [address] [address] Latesha Sotelo, [employer] [address] [place] [id number] [email or web address] Pain in right hip Social History Tobacco Use Types Packs/Day Years Used Date Smoking Tobacco: Never Assessed Comments Unknown Sex and Gender Information Value Date Recorded Sex Assigned at Not on file Legal Sex Female 10:10 PM EDT Gender Identity Not on file Sexual Orientation Not on file documented as of this encounter Plan of Treatment Not on file documented as of this encounter Results * XR HIP 2-3 VW RIGHT (10/17/2018 11:43 AM EDT) Anatomical Region Laterality Modality Hip Right Radiographic Linda ging 10/17/2018 1:07 PM EDT [...] degenerative arthritis. POS - [id number] Latesha Sotelo [employer] IMG XR PELVIS Final Result documented in this encounter Visit Diagnoses Diagnosis Pain in right hip Pain in right hip documented in this encounter Care Teams Jig Worker Relationship Specialty Start Date End Date Jyothi Ayers MD PCP - General Internal Medicine 10/17/18 documented as of this encounter Additional Source Comments The information contained in this document represents components of the legal health record. It is not the complete legal health record.[facility]
--- OUTSIDE RECORDS SUMMARY | 2025-04-23 13:35 | XMS_ITS | Clinical Summary ---
Author Organization [employer] Address [address] [facility] [address] [place] [address] Care Team Providers Care Registrar Nurses' Registry Name Role Phone Unavailable Primary Care Provider Unavailabl e Social History Tobacco Use Types Packs/Day Years Used Date Smoking Tobacco: Never Assessed Comments Unknown Sex and Gender Information Value Date Recorded Sex Assigned at Female 04/10/2022 10:35 AM EDT Legal Sex Female 10:35 AM EDT Gender Identity Female 04/10/2022 10:35 AM EDT Sexual Orientation Not on file Plan of Treatment Health Maintenance Due Date Last Done Comments Depression Screening 1945 Alcohol/Substance Use Screening 1955 Tobacco Screening 1957 DTaP/Tdap/Td Vaccines (1 - Tdap) 1962 Pneumococcal Vaccine: 50+ Ye ars (1 of 1 - PCV) 1993 Zoster Vaccines (1 of 2) 1993 RSV Patients and Pa tients Aged 60 years or older (1 - 1-dose 75+ series) 2018 COVID-19 Vaccine (1 - 2023-2 5 season) 2025 Influenza Vaccine (#1) 2025 HIB Vaccines Aged Out No longer eligi ble based on patient's age to complete this topic HPV Vaccines Aged Out No longer eligi ble based on patient's age to complete this topic Hepatitis A Vaccines Aged Out No long er eligible based on patient's age to complete this topic Hepatitis B Vaccines Aged Out No long er eligible based on patient's age to complete this topic IPV Vaccines Aged Out No longer eligi ble based on patient's age to complete this topic Meningococcal B Vaccine Aged Out No l onger eligible based on patient's age to complete this topic Meningococcal Vaccine Aged Out No katie balwinder eligible based on patient's age to complete this topic RSV under 20 months Aged Out No longe r eligible based on patient's age to complete this topic Rotavirus Vaccines Aged Out No longer eligible based on patient's age to complete this topic
--- OUTSIDE RECORDS SUMMARY | 2025-04-23 13:35 | XMS_ITS | Encounter Summary ---
Author Organization [facility] Address [address] [place] [address] Care Team Providers Care Foreign Food Cook Specialty Name Role Phone Jyothi Ayers MD Primary Care Provider +1- [phone] Encounter Details Date Type Department Care Team (Late st Contact Info) Description 05/26/[address] [facility] - Main Lab [address] [facility] [place] [address] Petros Kumar MD [address] [place] [address] Hypothyroidism, unspecified Social History Tobacco Use Types [...] Associated Diagnosis Comments COMPLETE BLOOD COUNT Routine 05/27/2024 7:05 AM EST Hypothyroidism, unspecified COMPREHENSIVE METABOLIC PANEL Routine 05/27/2024 7:05 AM EST Hypothyroidism, unspecified documented in this encounter Results * (ABNORMAL) Comprehensive metabolic panel (05/27/2024 7:05 AM EST) Sodium 140 133 - 145 mmol/L LAB CHEMISTRY METHOD 05/27/2024 11:14 AM EST [facility] Potassium 4.4 3.5 - 5.5 mmol/L LAB CHEMISTRY METHOD 05/27/2024 11:14 AM [facility] Chloride 104 96 - 110 mmol/L LAB CHEMISTRY METHOD 05/27/2024 11:14 AM [facility] CO2 32 21 - 32 mmol/L LAB CHEMISTRY METHOD 05/27/2024 11:14 AM [facility] Anion Gap 4 3 - 11 LAB CHEMISTRY METHOD 05/27/2024 11:14 AM [facility] Glucose 105(H) 70 - 100 mg/dL LAB CHEMISTRY METHOD 05/27/2024 11:14 AM [facility] BUN 11 5 - 25 mg/dL LAB CHEMISTRY METHOD 05/27/2024 11:14 AM [facility] Creatinine 0.65 0.50 - 1.10 mg/dL LAB CHEMISTRY METHOD 05/27/2024 11:14 AM [facility] eGFR 89 >=60 mL/min/1. 73m2 LAB CHEMISTRY METHOD 05/27/2024 11:14 AM [facility] Comment:Calculation based on the Chronic Kidney Disease Epidemiology Collaboration (CKD-EPI) equation refit without adjustment for race. BUN/Creatinine Ratio 16.9 LAB CHEMISTRY METHOD 05/27/2024 11:14 AM [facility] Calcium 9.1 8.5 - 10.5 mg/dL LAB CHEMISTRY METHOD 05/27/2024 11:14 AM [facility] AST (SGOT) 10 10 - 42 unit/L LAB CHEMISTRY METHOD 05/27/2024 11:14 AM [facility] ALT (SGPT) 8(L) 10 - 60 unit/L LAB CHEMISTRY METHOD 05/27/2024 11:14 AM [facility] Alkaline Phosphatase 70 42 - 121 unit/L LAB CHEMISTRY METHOD 05/27/2024 11:14 AM [facility] Total Protein 5.8(L) 6.0 - 8.0 g/dL LAB CHEMISTRY METHOD 05/27/2024 11:14 AM [facility] Albumin 2.6(L) 3.2 - 5.0 g/dL LAB CHEMISTRY METHOD 05/27/2024 11:14 AM [facility] Total Bilirubin 0.3 0.0 - 1.4 mg/dL LAB CHEMISTRY METHOD 05/27/2024 11:14 AM [facility] Blood Venous blood specimen / Unknown Venipuncture / Unknown 05/27/2024 7:05 AM EST 05/27/2024 10:17 AM EST us Petros Kumar MD LAB BLOOD ORDERABLES Final Resul t [facility] [address] [place] [address], * (ABNORMAL) Complete blood count (05/27/2024 7:05 AM EST) WBC 4.8 4.8 - 10.8 K/mcL LAB HEMETOLOGY METHOD 05/27/2024 10:46 AM [facility] RBC 3.80 3.80 - 4.80 M/mcL LAB HEMETOLOGY METHOD 05/27/2024 10:46 AM [facility] Hemoglobin 10.6(L) 11.5 - 16.0 g/dL LAB HEMETOLOGY METHOD 05/27/2024 10:46 AM [facility] Hematocrit 34.5(L) 35.0 - 47.0 % LAB HEMETOLOGY METHOD 05/27/2024 10:46 AM [facility] MCV 89.8 79.0 - 98.0 FL LAB HEMETOLOGY METHOD 05/27/2024 10:46 AM [facility] MCH 27.6 27.0 - 32.0 pcg LAB HEMETOLOGY METHOD 05/27/2024 10:46 AM [facility] MCHC 30.7(L) 32.0 - 37.0 g/dL LAB HEMETOLOGY METHOD 05/27/2024 10:46 AM [facility] RDW 12.5 11.0 - 15.0 % LAB HEMETOLOGY METHOD 05/27/2024 10:46 AM [facility] Platelets 165 130 - 400 K/mcL LAB HEMETOLOGY METHOD 05/27/2024 10:46 AM [facility] MPV 11.5(H) 7.0 - 11.0 FL LAB HEMETOLOGY METHOD 05/27/2024 10:46 AM [facility] NRBC 0.0 <1.0 % LAB HEMETOLOGY METHOD 05/27/2024 10:46 AM [facility] NRBC Absolute 0.00 <0.10 K/mcL LAB HEMETOLOGY METHOD 05/27/2024 10:46 AM [facility] Blood Venous blood specimen / Unknown Venipuncture / Unknown 05/27/2024 7:05 AM EST 05/27/2024 10:17 AM EST us Petros Kumar MD LAB BLOOD ORDERABLES Final Resul t [facility] [address] [place] [address], documented in this encounter Visit Diagnoses Diagnosis Hypothyroidism, unspecified documented in this encounter Care Teams Foreign Food Cook Specialty Relationship Specialty Start Date End Date Jyothi Ayers MD [address] [place] [address] PCP - General 04/10/22 documented as of this encounter
--- OUTSIDE RECORDS SUMMARY | 2025-04-23 13:35 | XMS_ITS | Encounter Summary ---
Author Organization [facility] Address [address] [facility] [address] [place] [address] Phone Care Team Providers Care Pharmacy Stock Clerk Name Role Phone Jyothi Ayers MD Primary Care Provider + Reason for Referral * MRI/CAT Scan - Closed Specialty Diagnoses / Procedures Referred By Contac t Referred To Contact Radiology Diagnoses Lumbar radiculopathy Procedures MRI Lumbar Spine Latesha Sotelo NP Phone: tel: fax: mailto:[email or web address] Referral ID Status Reason Start Date Expiration Date Visits Re quested Visits Authorized [id number] Closed 10/17/2018 10/17/2019 1 1 Encounter Details Date Type Department Care Team (Latest Contact Info) Description 10/17/2018 Ancillary Orders Virtual Department [address] [place] [address] Latesha Sotelo NP [address] [place] [phone] [email or web address] Lumbar radiculopathy Social History Tobacco Use Types Packs/Day Years Used Date Smoking Tobacco: Never Assessed Comments Unknown Sex and Gender Information Value Date Recorded Sex Assigned at Not on file Legal Sex Female 10:10 PM EDT Gender Identity Not on file Sexual Orientation Not on file documented as of this encounter Plan of Treatment Not on file documented as of this encounter Results * MRI LUMBAR SPINE (NEURO) WITHOUT CONTRAST (10/30/2018 5:32 PM EDT) Anatomical Region Laterality Modality L-spine Magnetic Resonan ce 10/30/2018 6:55 PM EDT Impressions 10/30/2018 9:18 PM EDT 1. Old L1 compression fracture with dark signal vertebroplasty change. 2. At L4-L5, moderate bilateral facet hypertrophy, mild bilateral neural foraminal stenosis. The exiting L4 nerves appear normal. 3. At L5-S1, moderate bilateral facet hypertrophy. Diffuse disc bulging and possibly contacting the right and left L5 nerves lateral to the neural foramen, without deviation of the nerves. POS - [id number] Edited by: Ashley Meade on 10/30/2018 8:36 PM Narrative 10/30/2018 9:18 PM EDT EXAM: MRI LUMBAR SPINE (NEURO) WITHOUT CONTRAST HISTORY: Lumbar radiculopathy, recent falls, worsening function, developing right foot drop. Evaluate for neural foraminal stenosis or nerve root impingement at L4-L5. History of remote L1 vertebroplasty. COMPARISON: None. TECHNIQUE: Exam performed on a 1.5 Mayra high-field MRI scanner. Sagittal T1, T2 and STIR, axial T1 and T2 sequences were obtained. FINDINGS: There is normal lumbar lordosis. There is an L1 compression fracture with marked loss of height of the central aspect of the vertebral body. No L1 bone marrow edema and the compression fracture appears chronic. Dark signal within a portion of the L1 vertebral body on all sequences likely represents vertebroplasty material. There is no x-ray for correlation. There is 2 to 3 mm retropulsion of the posterior- superior L1 vertebrae with mild indentation upon the anterior thecal sac, without significant canal stenosis. Coarse trabecular pattern of the entire L2 vertebral body with homogeneous increased T1 and T2 signal representing a hemangioma. Smaller hemangioma within the L4 vertebral body. The conus medullaris is normal, terminates at the inferior L1 level. There is paraspinous muscle atrophy. There is mild degenerative disc desiccation at T12-L1 above the compression fracture. The other intervertebral discs are normal in height and signal. Evaluation of the individual levels as follows: T11-T12, T12-L1: No canal or neuroforaminal stenosis. L1-L2: No canal or neural foraminal stenosis. L2-L3: Mild bilateral facet hypertrophic changes. Very mild bilateral foraminal disc bulging. No significant canal or neural foraminal stenosis. L3-L4: Mild bilateral facet hypertrophic changes. No canal or neural foraminal stenosis. L4-L5: Moderate bilateral facet hypertrophy. No disc herniation. Mild bilateral neural foraminal stenosis. No canal stenosis. L5-S1: Moderate bilateral facet hypertrophy. Diffuse disc bulging with left anterolateral disc osteophyte. There is no canal stenosis. Bulging disc comes close to the exiting right and left L5 nerves lateral to the neural foramen. Procedure Note Janee Villasenor MD - 10/30/2018 EXAM: MRI LUMBAR SPINE (NEURO) WITHOUT CONTRAST HISTORY: Lumbar radiculopathy, recent falls, worsening function,developing right foot drop. Evaluate for neural foraminal stenosis ornerve root impingement at L4-L5. History of remote L1 vertebroplasty. COMPARISON: None. TECHNIQUE: Exam performed on a 1.5 Mayra high-field MRI scanner. SagittalT1, T2 and STIR, axial T1 and T2 sequences were obtained. FINDINGS: There is normal lumbar lordosis. There is an L1 compression fracture withmarked loss of height of the central aspect of the vertebral body. No L1bone marrow edema and the compression fracture appears chronic. Darksignal within a portion of the L1 vertebral body on all sequences likelyrepresents vertebroplasty material. There is no x- ray for correlation.There is 2 to 3 mm retropulsion of the posterior-superior L1 vertebraewith mild indentation upon the anterior thecal sac, without significantcanal stenosis. Coarse trabecular pattern of the entire L2 vertebral bodywith homogeneous increased T1 and T2 signal representing a hemangioma.Smaller hemangioma within the L4 vertebral body. The conus medullaris is normal, terminates at the inferior L1 level. There is paraspinous muscle atrophy. There is mild degenerative disc desiccation at T12-L1 above thecompression fracture. The other intervertebral discs are normal in heightand signal. Evaluation of the individual levels as follows: T11-T12, T12-L1: No canal or neuroforaminal stenosis. L1-L2: No canal or neural foraminal stenosis. L2-L3: Mild bilateral facet hypertrophic changes. Very mild bilateralforaminal disc bulging. No significant canal or neural foraminalstenosis. L3-L4: Mild bilateral facet hypertrophic changes. No canal or neuralforaminal stenosis. L4-L5: Moderate bilateral facet hypertrophy. No disc herniation. Mildbilateral neural foraminal stenosis. No canal stenosis. L5-S1: Moderate bilateral facet hypertrophy. Diffuse disc bulging withleft anterolateral disc osteophyte. There is no canal stenosis. Bulgingdisc comes close to the exiting right and left L5 nerves lateral to theneural foramen. IMPRESSION: 1. Old L1 compression fracture with dark signal vertebroplasty change. 2. At L4-L5, moderate bilateral facet hypertrophy, mild bilateral neuralforaminal stenosis. The exiting L4 nerves appear normal. 3. At L5-S1, moderate bilateral facet hypertrophy. Diffuse disc bulgingand possibly contacting the right and left L5 nerves lateral to the neuralforamen, without deviation of the nerves. POS - [id number] Edited by: Ashley Meade on 10/30/2018 8:36 PM Latesha Sotelo HEALTH CARE / MEDICAL JOB TITLES IMG MR XSPECIALTY Final Result documented in this encounter Visit Diagnoses Diagnosis Lumbar radiculopathy Thoracic or lumbosacral neuritis or radiculitis, unspecified Lumbar radiculopathy Thoracic or lumbosacral neuritis or radiculitis, unspecified documented in this encounter Care Teams Pharmacy Stock Clerk Relationship Specialty Start Date End Date Jyothi Ayers MD PCP - General Internal Medicine 10/17/18 documented as of this encounter Additional Source Comments The information contained in this document represents components of the legal health record. It is not the complete legal health record.[facility]
--- OUTSIDE RECORDS SUMMARY | 2025-04-23 13:35 | XMS_ITS | Encounter Summary ---
Author Organization [facility] Address [address] [place] [address] Care Team Providers Care Hose Tester Name Role Phone Jyothi Ayers MD Primary Care Provider [phone]- [phone] Encounter Details Date Type Department Care Team (Late st Contact Info) Description 05/27/2024 Lab Requisition [facility] - Main Lab [address] [facility] [place] [address] Petros Kumar MD [address] [place] [address] Type 2 diabetes mellitus without complications (CMS/HCC V24, CMS/HCC V28) Social History Tobacco Use Types Packs/Day Years [...] Procedure Name Priority Date/Time Associated Diagnosis Comments HEMOGLOBIN A1C Routine 05/28/2024 8:15 AM EST Type 2 diabetes mellitus without complications (CMS/HCC) documented in this encounter Results * Hemoglobin A1c (05/28/2024 8:15 AM EST) Hemoglobin A1C 6.4 <6.5 % LAB CHEMISTRY METHOD 05/28/2024 1:07 PM EST [facility] Mean Bld Glu Estim. 137 mg/dL LAB CHEMISTRY METHOD 05/28/2024 1:07 PM EST [facility] Blood Venous blood specimen / Unknown Venipuncture / Unknown 05/28/2024 8:15 AM EST 05/28/2024 9:44 AM EST us Petros Kumar MD LAB BLOOD ORDERABLES Final Resul t [facility] [address] [place] [address], documented in this encounter Visit Diagnoses Diagnosis Type 2 diabetes mellitus without complications (CMS/HCC V24, CMS/HCC V28) documented in this encounter Care Teams Hose Tester Relationship Specialty Start Date End Date Jyothi Ayers MD [address] [place] [address] PCP - General 04/10/22 documented as of this encounter
--- OUTSIDE RECORDS SUMMARY | 2025-04-23 13:35 | XMS_ITS | Encounter Summary ---
Author Organization [facility] Address [address] [place] [address] Care Team Providers Care Supervisor Brooder Farm Name Role Phone Jyothi Ayers MD Primary Care Provider [phone]- [phone] Encounter Details Date Type Department Care Team (Late st Contact Info) Description 06/05/2024 Lab Requisition [facility] - Main Lab [address] [facility] [place] [address] Petros Kumar MD [address] [place], [place] [id number] Chronic obstructive pulmonary disease, unspecified (CMS/HCC V24, CMS/HCC V28); Type 2 diabetes mellitus without complications (CMS/HCC [...] Associated Diagnosis Comments COMPLETE BLOOD COUNT Routine 06/05/2024 6:56 AM EST Chronic obstructive pulmonary disease, unspecified (CMS/HCC) Type 2 diabetes mellitus without complications (CMS/HCC) BASIC METABOLIC PANEL Routine 06/05/2024 6:56 AM EST Chronic obstructive pulmonary disease, unspecified (CMS/HCC) Type 2 diabetes mellitus without complications (CMS/HCC) documented in this encounter Results * (ABNORMAL) Basic metabolic panel (06/05/2024 6:56 AM EST) Sodium 139 133 - 145 mmol/L LAB CHEMISTRY METHOD 06/05/2024 10:22 AM [facility] Potassium 4.2 3.5 - 5.5 mmol/L LAB CHEMISTRY METHOD 06/05/2024 10:22 AM [facility] Chloride 104 96 - 110 mmol/L LAB CHEMISTRY METHOD 06/05/2024 10:22 AM [facility] CO2 32 21 - 32 mmol/L LAB CHEMISTRY METHOD 06/05/2024 10:22 AM [facility] Anion Gap 3 3 - 11 LAB CHEMISTRY METHOD 06/05/2024 10:22 AM [facility] Glucose 58(L) 70 - 100 mg/dL LAB CHEMISTRY METHOD 06/05/2024 10:22 AM [facility] BUN 11 5 - 25 mg/dL LAB CHEMISTRY METHOD 06/05/2024 10:22 AM [facility] Creatinine 0.55 0.50 - 1.10 mg/dL LAB CHEMISTRY METHOD 06/05/2024 10:22 AM [facility] eGFR 92 >=60 mL/min/1. 73m2 LAB CHEMISTRY METHOD 06/05/2024 10:22 AM [facility] Comment:Calculation based on the Chronic Kidney Disease Epidemiology Collaboration (CKD-EPI) equation refit without adjustment for race. BUN/Creatinine Ratio 20.0 LAB CHEMISTRY METHOD 06/05/2024 10:22 AM [facility] Calcium 8.8 8.5 - 10.5 mg/dL LAB CHEMISTRY METHOD 06/05/2024 10:22 AM [facility] Blood Venous blood specimen / Unknown Venipuncture / Unknown 06/05/2024 6:56 AM EST 06/05/2024 9:43 AM EST us Petros Kumar MD LAB BLOOD ORDERABLES Final Resul t [facility] [address] [place] [address], * (ABNORMAL) Complete blood count (06/05/2024 6:56 AM EST) WBC 4.9 4.8 - 10.8 K/mcL LAB HEMETOLOGY METHOD 06/05/2024 10:02 AM [facility] RBC 3.50(L) 3.80 - 4.80 M/mcL LAB HEMETOLOGY METHOD 06/05/2024 10:02 AM [facility] Hemoglobin 9.6(L) 11.5 - 16.0 g/dL LAB HEMETOLOGY METHOD 06/05/2024 10:02 AM [facility] Hematocrit 31.0(L) 35.0 - 47.0 % LAB HEMETOLOGY METHOD 06/05/2024 10:02 AM [facility] MCV 89.9 79.0 - 98.0 FL LAB HEMETOLOGY METHOD 06/05/2024 10:02 AM [facility] MCH 27.8 27.0 - 32.0 pcg LAB HEMETOLOGY METHOD 06/05/2024 10:02 AM [facility] MCHC 31.0(L) 32.0 - 37.0 g/dL LAB HEMETOLOGY METHOD 06/05/2024 10:02 AM [facility] RDW 12.8 11.0 - 15.0 % LAB HEMETOLOGY METHOD 06/05/2024 10:02 AM [facility] Platelets 181 130 - 400 K/mcL LAB HEMETOLOGY METHOD 06/05/2024 10:02 AM [facility] MPV 11.4(H) 7.0 - 11.0 FL LAB HEMETOLOGY METHOD 06/05/2024 10:02 AM EST [facility] NRBC 0.0 <1.0 % LAB HEMETOLOGY METHOD 06/05/2024 10:02 AM EST [facility] NRBC Absolute 0.00 <0.10 K/mcL LAB HEMETOLOGY METHOD 06/05/2024 10:02 AM EST [facility] Blood Venous blood specimen / Unknown Venipuncture / Unknown 06/05/2024 6:56 AM EST 06/05/2024 9:43 AM EST us Petros uKmar MD LAB BLOOD ORDERABLES Final Resul t [facility] [address] [place] [address], documented in this encounter Visit Diagnoses Diagnosis Chronic obstructive pulmonary disease, unspecified (CMS/HCC V24, CMS/HCC V28) Type 2 diabetes mellitus without complications (CMS/HCC V24, CMS/HCC V28) documented in this encounter Care Teams Supervisor Brooder Farm Relationship Specialty Start Date End Date Jyothi Ayers MD [address] [place] [address] PCP - General 04/10/22 documented as of this encounter
== END 2025-04-23 13:00 | disposition home or self-care (01) ==
LOC: HO.HMCHD 10:54
PROVIDERS: PCP Internal Medicine; Visit Provider Internal Medicine
DX: E11.69 Type 2 diabetes mellitus with other specified complication (principal); E66.9 Obesity, unspecified; C22.1 Intrahepatic bile duct carcinoma; F41.8 Other specified anxiety disorders

== ENCOUNTER 2025-04-23 12:19 | Outpatient (REF) | payer MEDICARE, OTHER, SELFPAY ==
--- OUTSIDE RECORDS SUMMARY | 2025-04-19 23:59 | XMS_ITS | Continuity of Care Document ---
Author Organization [facility] Address [address] [place] [address]- Care Team Providers Care Mat Man Name Role Phone Yosef Fernández MD Primary Care Physician [phone] [id number] Date(s): 03/09/25 - 04/19/25 [facility] [address] [place], [place] [address] Attending Physician: Yosef Fernández MD Encounter Type: Pre Office Visit Allergies, Adverse Reactions, Alerts Substance Criticality Severity Reaction Reaction Severity Status tetracycline Active iodine topical Activ e penicillins 1 rash Active sulfa drugs rash Active gabapentin Unable to assess criticality Unknown HIVES Active shellfish hives Active Macrobid Unable to assess criticality Persistent Moderate Active Zofran QT PROLONGATION Acti ve Contrast Dye swelling, welt on behind Active Latex red bumps/ swelling Active Other Food Allergy bananas - diarrhea, nausea Active 1Tolerates ceftriaxone Immunizations Given and Recorded Vaccine Date Status Refusal Reason influenza virus vaccine, inactivated 04/10/24 Give n influenza virus vaccine, inactivated 04/01/21 Ryan rded influenza virus vaccine, inactivated 1 03/12/20 Gi miquel influenza virus vaccine, inactivated 2 05/02/19 Gi miquel influenza virus vaccine, inactivated 3 05/28/18 Gi miquel influenza virus vaccine, inactivated 4 03/06/17 Gi miquel influenza virus vaccine, inactivated 04/21/13 Ryan rded influenza virus vaccine, inactivated 06/26/12 Ryan rded influenza virus vaccine, inactivated 05/02/10 Ryan rded pneumococcal 20-valent conjugate vaccine 5 02/15/23 Given SARS-CoV-2 (COVID-19) mRNA-1273 vaccine 05/10/21 R ecorded SARS-CoV-2 (COVID-19) mRNA-1273 vaccine 02/15/21 R ecorded SARS-CoV-2 (COVID-19) mRNA-1273 vaccine 01/17/21 R ecorded tetanus/diphtheria/pertussis, acel(Tdap) 02/13/20 Recorded pneumococcal 13-valent vaccine 6 07/04/17 Given tetanus-diphtheria toxoids (Td) 7 07/05/15 Given pneumococcal 23-valent vaccine 8 08/24/14 Given 1Result Comment: SCREENING QUESTIONS REVIEWED. [facility] [id number] 2Result Comment: [id number] given w/out incident 3Result Comment: [05/28/2018] [facility]# [id number] PT. TOLERATED INJ. WITHOUT COMPLICATIONS...CO 4Result Comment: [03/06/2017] [id number] Flu Season [facility]# [id number] Pt. tolerated inj. without complications...CO 5Result Comment: [facility] [id number] 6Result Comment: [07/04/2017] [facility]:[id number] 7Result Comment: [07/05/2015] given w/o incident 8Result Comment: [08/24/2014] GIVEN WITHOUT INCIDENT.....VS Medications cetirizine 10 mg oral tablet See Instructions, Take 1 tablet (10mg) 12 hours prior to procedure. Take 1 tablet (10mg) 2 hours prior to procedure, # 2 tablet, 0 Refills, Maintenance, 02/04/25 9:58:00 AM EDT, [id number], Partial fill upon patient request if the prescription is for a schedule II opioid drug., 160, cm, 01/27/25 14:49:00 EDT, Height, 79, kg, 01/27/25 7:07:00 EDT, Dry Weight Start Date: 02/04/25 Status: Ordered Medication Dispense Status: Completed Quantity: 2.0 Unit: tablet Total Allowed Fills: 1 Fills Dispensed: 0 Indications: Radiographic dye allergy status; cetirizine 10 mg oral tablet See Instructions, Take 1 tablet (10mg) 12 hours prior to procedure. Take 1 tablet (10mg) 2 hours prior to procedure, # 2 tablet, 0 Refills, Maintenance, 04/02/25 9:51:00 AM EDT, [facility], Partial fill upon patient request if the prescription is for a schedule II opioid drug., 160, cm, 03/16/25 14:47:00 EDT, Height, 79.5, kg, 03/03/25 12:40:00 EDT, Dry Weight Start Date: 04/02/25 Status: Ordered Medication Dispense Status: Completed Quantity: 2.0 Unit: tablet Total Allowed Fills: 1 Fills Dispensed: 0 docusate sodium 100 mg oral capsule 1 capsule = 100 mg, By Mouth, 2 times a day, PRN as needed for constipation, # 180 capsule, 2 Refills, Maintenance, 01/24/24 9:26:00 AM EDT, Capsule, [facility], Partial fill upon patient request if the prescription is for a schedule II opioid drug., 160, cm, 01/24/24 8:55:00 EDT, Height, 83.3, kg, 01/24/24 8:41:00 EDT, Dry Weight Start Date: 01/24/24 Status: Ordered Medication Dispense Status: Completed Quantity: 180.0 Unit: capsule Total Allowed Fills: 3 Fills Dispensed: 0 duloxetine 30 mg oral enteric coated capsule 1 capsule = 30 mg, By Mouth, Daily, take in addition to 60mg for total 90mg, # 90 capsule, 2 Refills, Maintenance, 10/29/24 10:41:00 AM EDT, [facility], take in addition to 60mg for total 90mg, 160, cm, 10/16/24 15:40:00 EDT, Height, 80.7, kg, 10/16/24 15:40:00 EDT, Dry Weight Start Date: 10/29/24 Status: Ordered Medication Dispense Status: Completed Quantity: 90.0 Unit: capsule Total Allowed Fills: 3 Fills Dispensed: 0 duloxetine 60 mg oral enteric coated capsule 1 capsule = 60 mg, By Mouth, Daily, take in addition to 30mg for total 90mg, # 90 capsule, 2 Refills, Maintenance, 10/29/24 10:45:00 AM EDT, EC Capsule, [facility], take in addition to 30mg for total 90mg, 160, cm, 10/16/24 15:40:00 EDT, Height, 80.7, kg, 10/16/24 15:40:00 EDT, Dry Weight Start Date: 10/29/24 Status: Ordered Medication Dispense Status: Completed Quantity: 90.0 Unit: capsule Total Allowed Fills: 3 Fills Dispensed: 0 folic acid 1 mg oral tablet 1 mg, 1, tablet, By Mouth, Daily, # 90 tablet, Refills 2, Tot. Refills 2, Maintenance, 06/27/24 12:24:00 PM EST, Route to Pharmacy Electronically, [facility], Partial fill upon patient requestif the prescription is for a schedule II opioid drug., 160, cm, 06/20/24 8:41:00 EST, Height, 79.5,kg, 05/13/24 23:34:00 EST, Dry Weight Start Date: 06/27/24 Status: Ordered Medication Dispense Status: Completed Quantity: 90.0 Unit: tablet Total Allowed Fills: 3 Fills Dispensed: 0 fosfomycin 3 g oral granule for reconstitution 3 g, By Mouth, Every 72 hours, # 6 each, 0 Refills, Soft Stop, 01/26/25 11:57:00 AM EDT, Granule, [facility], Partial fill upon patient request if the prescription is for a schedule II opioid drug., 160, cm, 01/26/25 7:20:00 EDT, Height, 82, kg, 01/20/25 4:20:00 EDT, Dry Weight Start Date: 01/26/25 Stop Date: 02/13/25 Status: Ordered Medication Dispense Status: Completed Quantity: 6.0 Unit: each Total Allowed Fills: 1 Fills Dispensed: 0 Medrol 32 mg oral tablet See Instructions, please take 32 mg by mouth 12 hrs before and 32mg 2 hr before scan, # 2 tablet, 0Refills, Maintenance, 01/19/25 1:18:00 PM EDT, [facility], Partial fill upon patient requestif the prescription is for a schedule II opioid drug., 160, cm, 01/05/25 8:06:00 EDT, Height, 84.7,kg, 12/22/24 2:38:00 EDT, Dry Weight Start Date: 01/19/25 Status: Ordered Medication Dispense Status: Completed Quantity: 2.0 Unit: tablet Total Allowed Fills: 1 Fills Dispensed: 0 Indications: Radiographic dye allergy status; methenamine hippurate 1 gm oral tablet 1 tablet = 1 Gm, By Mouth, 2 times a day, 0 Refills, Maintenance, 01/24/24 9:32:00 AM EDT, Partial fill upon patient request if the prescription is for a schedule II opioid drug. Start Date: 01/24/24 Status: Ordered Medication Dispense Status: Completed Total Allowed Fills: 1 Fills Dispensed: 0 methylPREDNISolone 32 mg oral tablet See Instructions, Take 1 tablet (32mg) 12 hours prior to procedure. Take 1 tablet (32mg) 2 hours prior to procedure., # 2 tablet, 0 Refills, Maintenance, 02/04/25 9:59:00 AM EDT, [facility], Partial fill upon patient request if the prescription is for a schedule II opioid drug., 160, cm, 01/27/25 14:49:00 EDT, Height, 79, kg, 01/27/25 7:07:00 EDT, Dry Weight Start Date: 02/04/25 Status: Ordered Medication Dispense Status: Completed Quantity: 2.0 Unit: tablet Total Allowed Fills: 1 Fills Dispensed: 0 methylPREDNISolone 32 mg oral tablet See Instructions, Take 1 tablet (32mg) 12 hours prior to procedure. Take 1 tablet (32mg) 2 hours prior to procedure., # 2 tablet, 0 Refills, Maintenance, 04/02/25 9:52:00 AM EDT, [facility], Partial fill upon patient request if the prescription is for a schedule II opioid drug., 160, cm, 03/16/25 14:47:00 EDT, Height, 79.5, kg, 03/03/25 12:40:00 EDT, Dry Weight Start Date: 04/02/25 Status: Ordered Medication Dispense Status: Completed Quantity: 2.0 Unit: tablet Total Allowed Fills: 1 Fills Dispensed: 0 MS Contin 60 mg oral tablet, extended release 1 tablet = 60 mg, By Mouth, Every 12 hours, # 60 tablet, 0 Refills, Maintenance, 04/13/25 9:01:00 AMEST, ER Tablet, [facility], Partial fill upon patient request if the prescription is for a schedule II opioid drug., 160, cm, 04/09/25 15:52:00 EDT, Height, 83.3, kg, 04/09/25 15:52:00 EDT, Dry Weight Start Date: 04/13/25 Status: Ordered Medication Dispense Status: Completed Quantity: 60.0 Unit: tablet Total Allowed Fills: 1 Fills Dispensed: 0 Multivitamin 1 tablet, By Mouth, Daily, 0 Refills, Maintenance, 02/15/23 8:23:00 AM EDT, Partial fill upon patientrequest if the prescription is for a schedule II opioid drug. Start Date: 02/15/23 Status: Ordered Medication Dispense Status: Completed Total Allowed Fills: 1 Fills Dispensed: 0 naloxone 4 mg/0.1 mL nasal spray 1 sprays = 4 mg, Naris, Right, Once, use one spray in one nostril. if an additional dose is needed,alternate nostril, # 2 each, 9 Refills, Soft Stop, 10/29/24 10:50:00 AM EDT, [facility], Partial fill upon patient request if the prescription is for a schedule II opioid drug., 160, cm, 10/16/24 15:40:00 EDT, Height, 80.7, kg, 10/16/24 15:40:00 EDT, Dry Weight Start Date: 10/29/24 Status: Ordered Medication Dispense Status: Completed Quantity: 2.0 Unit: each Total Allowed Fills: 10 Fills Dispensed: 0 SAVANAH 2 GEN PEN NEEDLE 32G 4MM SAVANAH 2 GEN PEN NEEDLE 32G 4MM, See Instructions, # 100 Unknown, 11 Refills, Maintenance, DX: E11.9 USE ONCE DAILY, 02/20/25 3:25:00 PM EDT, 160, cm, 02/11/25 7:24:00 EDT, Height, 88, kg, 02/11/25 7:24:00 EDT, Dry Weight Start Date: 02/20/25 Status: Ordered Medication Dispense Status: Completed Quantity: 100.0 Unit: Unknown Total Allowed Fills: 1 Fills Dispensed: 0 omeprazole 40 mg oral enteric coated capsule 1 capsule = 40 mg, By Mouth, 2 times a day Start Date: 06/20/24 Status: Ordered Medication Dispense Status: Completed Total Allowed Fills: 1 Fills Dispensed: 0 oxyCODONE 15 mg oral tablet See Instructions, 1 TABLET BY MOUTH EVERY 3 HOURS,X14 DAYS, NEEDED FOR PAIN, dx: cancer, # 112 tablet, 0 Refills, Maintenance, 03/18/25 2:03:00 PM EDT, 160, cm, 03/16/25 14:47:00 EDT, Height, 79.5,kg, 03/03/25 12:40:00 EDT, Dry Weight Start Date: 03/18/25 Status: Ordered Medication Dispense Status: Completed Quantity: 112.0 Unit: tablet Total Allowed Fills: 1 Fills Dispensed: 0 Semglee (Prefilled Pen) 100 units/mL subcutaneous solution = 10 units, 15 UNITS SUBCUTANEOUS INFUSION DAILY IN THE MORNING. TAKE WITH FOOD ROTATE INJECTION SITES Start Date: 06/20/24 Status: Ordered Medication Dispense Status: Completed Total Allowed Fills: 1 Fills Dispensed: 0 Vitamin D3 50,000 intl units oral capsule 1 capsule = 1,250 mcg, By Mouth, Every week, # 13 capsule, 1 Refills, Maintenance, 11/13/23 10:07:00 AM EDT, Capsule, [facility], Partial fill upon patient request if the prescription is for a schedule II opioid drug., 157.5, cm, 11/12/23 12:49:00 EDT, Height, 79, kg, 11/02/23 9:23:00 EDT, Dry Weight Start Date: 11/13/23 Status: Ordered Medication Dispense Status: Completed Quantity: 13.0 Unit: capsule Total Allowed Fills: 2 Fills Dispensed: 0 ZyPREXA 5 mg oral tablet 5 mg, 1, tablet, By Mouth, Daily, stop metaclopramide, # 30 tablet, Refills 1, Tot. Refills 1, Maintenance, 04/09/25 4:21:00 PM EDT, Route to Pharmacy Electronically, [id number], Partial fillupon patient request if the prescription is for a schedule II opioid drug., 160, cm, 04/09/25 15:52:00 EDT, Height, 83.3, kg, 04/09/25 15:52:00 EDT, Dry Weight Start Date: 04/09/25 Status: Ordered Medication Dispense Status: Completed Quantity: 30.0 Unit: tablet Total Allowed Fills: 2 Fills Dispensed: 0 ZyPREXA 5 mg oral tablet 5 mg, 1, tablet, By Mouth, Daily, PRN, as needed for nausea 1/2 to full tablet for 7 days., # 7 tablet, Refills 0, Tot. 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 COPD (chronic obstructive pulmonary disease) Confirmed Active Depressive disorder Confirmed Active Diabetes mellitus Confirmed Active Diabetes mellitus Confirmed Active Controlled substance agreement signed Confirmed Active Epigastric pain Confirmed Active Flank pain Confirmed Active Finger fracture, right Confirmed Active Gastroparesis Confirmed Active Headache Confirmed Active Hyperglycemia due to diabetes mellitus Confirmed Active Hyperglycemia due to diabetes mellitus Confirmed Active Hypertension Confirmed Active Hypothyroidism Confirmed Active Hepatic lesion Confirmed Active Adenocarcinoma Confirmed Active Skin cancer of anterior chest s/p excision Confirmed Active Depression with anxiety Confirmed Active Nausea Confirmed Active Obese class I Confirmed Active Osteoarthritis Confirmed Active Osteoarthritis of both hips Confirmed Active Polymyalgia rheumatica Confirmed Active Post concussive syndrome Confirmed Active QT prolongation Confirmed Active Recurrent UTI Confirmed Active Urinary retention Confirmed Active Seronegative inflammatory arthritis Confirmed Active Suspected 2019 novel coronavirus infection Confirmed Active UTI symptoms Confirmed Active UTI (urinary tract infection) Confirmed Active Complicated UTI (urinary tract infection) Confirmed Active Complicated UTI (urinary tract infection) Confirmed Active Social History Social History Type Response Sexual Sexually involved in last 6 months: No. Smoking Status Former smoker; Other : pt quit smoking over 30 years ago; entered on: 08/24/14 Sex Female Sex Representation Female (finding) Patient Care team information Care Team Personnel Name: Lorene Dorsey RN Position: [facility] RN Member Role: Primary Care Nurse Name: Rajesh Lopez RN Position: [facility] RN Member Role: Primary Care Nurse Name: Boy Peterson RN Position: [facility] RN Supv Member Role: Primary Care Nurse Name: Gladis Grullon RN Position: [facility] RN Member Role: Primary Care Nurse Name: Johnna Velazquez RN Position: [facility] RN Member Role: Primary Care Nurse Name: Austin Che RN Position: [facility] RN Member Role: Primary Care Nurse Name: Sara Kim RN Position: [facility] RN Member Role: Primary Care Nurse Name: Alexander [INSTR]Ana Position: [facility] RN Member Role: Primary Care Nurse Name: Charlie Mejia RN Position: [facility] RN Member Role: Primary Care Nurse Name: America Navarrete RN Position: [facility] RN Member Role: Primary Care Nurse Name: Yonis Castano RN Position: [facility] RN Member Role: Primary Care Nurse Name: Aspen Ward RN Position: [facility] RN Member Role: Primary Care Nurse Name: Yolande Wolff RN Position: [facility] RN Member Role: Primary Care Nurse Name: Racheal Overton RN Position: [facility] RN Member Role: Primary Care Nurse Name: Nima Cotton MD Position: [facility] Physician (General Medicine) Member Role: Lifetime Consulting Physician Address: [address] [place] [address] Interventional Radiology [address] Telecom: Name: Shahrzad Bernstein RN Position: [facility] RN Supv Member Role: Primary Care Nurse Name: Iris Ortega RN Position: [facility] RN Member Role: Primary Care Nurse Name: Francisco J Helton RN Position: [facility] RN Member Role: Primary Care Nurse Name: Yosef Fernández MD Position: [facility] Physician - Primary Care Member Role: PCP Address: [address] [place] [address] Adult & Pediatric Medicine [address] Telecom: Name: Carlos Fortune RN Position: [facility] RN Member Role: Primary Care Nurse Care Team Related Persons Name: LIDA BUSTAMANTE Name: ESTEFANY BUSTAMANTE Name: SOFIA VALENCIA Insurance Providers Guarantor name: AMERICA BUSTAMANTE [facility] Plan Information #: 1 Payer: MEDICARE B Payer Identifier: NA Member Number: [id number] Group Number: NA Subscriber Identifier: [id number] Relationship to Subscriber: self Coverage Type: NA Coverage Verification Date: NA Telecom: NA Address: Health Plan Information #: 2 Payer: I10 MEDICARE SUPPL [facility] Payer Identifier: NA Member Number: [id number] Group Number: [id number] Subscriber Identifier: [id number] Relationship to Subscriber: self Coverage Type: NA Coverage Verification Date: NA Telecom: NA Address:
--- OUTSIDE RECORDS SUMMARY | 2025-04-20 23:59 | XMS_ITS | Continuity of Care Document ---
Author Organization [facility] Address [address] [place] [address]- Care Team Providers Care Landscape Specialist Name Role Phone Yosef Fernández MD Primary Care Physician [phone] [id number] Date[facility]s): 04/13/25 - 04/20/25 [facility] [address] [place] [id number] Attending Physician: Nima Cotton MD Admitting Physician: Nima Cotton MD Referring Physician: Yosef Fernández MD Encounter Type: Office Visit Allergies, Adverse Reactions, Alerts Substance Criticality Severity Reaction Reaction Severity Status tetracycline Active iodine topical Activ e gabapentin Unable to assess criticality Unknown HIVES Active penicillins 1 rash Active sulfa drugs rash Active shellfish hives Active Macrobid Unable to [...] 08/24/14 Given 1Result Comment: SCREENING QUESTIONS REVIEWED. [facility] [id number] 2Result Comment: [id number] given w/out incident 3Result Comment: [05/28/2018] [facility]# [id number] PT. TOLERATED INJ. WITHOUT COMPLICATIONS...CO 4Result Comment: [03/06/2017] [id number] Flu Season [facility]# [id number] Pt. tolerated inj. without complications...CO 5Result Comment: [facility] [id number] 6Result Comment: [07/04/2017] [facility]:[id number] 7Result Comment: [07/05/2015] given w/o incident 8Result Comment: [08/24/2014] GIVEN WITHOUT INCIDENT.....VS Medications cetirizine 10 mg oral tablet See Instructions, Take 1 tablet (10mg) 12 hours prior to procedure. Take 1 tablet (10mg) 2 hours prior to procedure, # 2 tablet, 0 Refills, Maintenance, 02/04/25 9:58:00 AM EDT, [facility]/pharmacy #1972, Partial fill upon patient request [...] 0 Refills, Maintenance, 02/04/25 9:59:00 AM EDT, [facility]/pharmacy #1972, Partial fill upon patient request [...] 0 Refills, Maintenance, 04/02/25 9:52:00 AM EDT, [facility]/pharmacy #1972, Partial fill upon patient request [...] Refills, Maintenance, 04/13/25 9:01:00 AMEST, ER Tablet, [facility]/pharmacy #1972, Partial fill upon patient request [...] Refills, Soft Stop, 10/29/24 10:50:00 AM EDT, [facility]/pharmacy #1972, Partial fill upon patient request [...] Refills, Maintenance, 11/13/23 10:07:00 AM EDT, Capsule, [facility]/pharmacy #1972, Partial fill upon patient request [...] Complicated UTI (urinary tract infection) Confirmed Active Vital Signs Most recent to oldest [Reference Range]: 1 Height 160 cm (04/13/25 2:50 PM) Social History Social History Type Response Sexual Sexually involved in last 6 months: No. Smoking Status Former smoker; Other : pt quit smoking over 30 years ago; entered on: 08/24/14 Sex Female Sex Representation Female (finding) Patient Care team information Care Team Personnel Name: Lorene Dorsey RN Position: [facility] RN Member Role: Primary Care Nurse Name: Rajesh Lopez RN Position: [facility] RN Member Role: Primary Care Nurse Name: Boy Peterson RN Position: [facility] RN Supv Member Role: Primary Care Nurse Name: Gladis Grullon RN Position: [facility] RN Member Role: Primary Care Nurse Name: Johnna Velazquez RN Position: [facility] RN Member Role: Primary Care Nurse Name: Robby Che RN Position: [facility] RN Member Role: Primary Care Nurse Name: Sara Kim RN Position: [facility] RN Member Role: Primary Care Nurse Name: Alexander [INSTR]Ana Position: [facility] RN Member Role: Primary Care Nurse Name: Charlie Mejia RN Position: [facility] RN Member Role: Primary Care Nurse Name: America Navarrete RN Position: [facility] RN Member Role: Primary Care Nurse Name: Yonis Castano RN Position: [facility] RN Member Role: Primary Care Nurse Name: Aspen Ward RN Position: [facility] RN Member Role: Primary Care Nurse Name: Yolande Wolff RN Position: [facility] RN Member Role: Primary Care Nurse Name: Racheal Overton RN Position: [facility] RN Member Role: Primary Care Nurse Name: Nima Cotton MD Position: [facility] Physician (General Medicine) Member Role: Lifetime Consulting Physician Address: [address] [place] [address] Interventional Radiology [address] Telecom: Name: Shahrzad Bernstein RN Position: [facility] RN Supv Member Role: Primary Care Nurse Name: Iris Ortega RN Position: [facility] RN Member Role: Primary Care Nurse Name: Francisco J Helton RN Position: [facility] RN Member Role: Primary Care Nurse Name: Yosef Fernández MD Position: [facility] Physician - Primary Care Member Role: PCP Address: [address] [place] [address] Adult & Pediatric Medicine [address] Telecom: Name: Carlos Fortune RN Position: [facility] RN Member Role: Primary Care Nurse Care Team Related Persons Name: LIDA BUSTAMANTE Name: ESTEFANY BUSTAMANTE Name: SOFIA VALENCIA Insurance Providers Guarantor name: AMERICA [facility] Information #: 1 Payer: MEDICARE B Payer Identifier: BEST Member Number: [id number] Group Number: [id number] Subscriber Identifier: [id number] Relationship to Subscriber: self Coverage Type: NA Coverage Verification Date: NA Telecom: NA Address: Health Plan Information #: 2 Payer: I10 [address]ARE [address] Payer Identifier: BEST Member Number: [id number] Group Number: [id number] Subscriber Identifier: [id number] Relationship to Subscriber: self Coverage Type: NA Coverage Verification Date: NA Telecom: NA Address:
[2025-04-23 13:12] LABS: MANUAL DIFF FLAG NO
[2025-04-23 13:22] LABS: Hematocrit 40.2 % (37.0-47.0); Hemoglobin 12.9 g/dl (12.0-16.0); Imm Gran Abs Auto 0.03 X10*3/uL (0.00-0.03); Imm Gran Pct Auto 0.3 % (0.0-0.4); Lymphocytes Absolute Auto 0.7 X10*3/uL (1.2-4.9); Mean Corpuscular HGB Conc 32.1 g/dl (31.0-35.0); Mean Corpuscular Hemoglobin 28.0 pg (27.0-33.0); Mean Corpuscular Volume 87.4 fL (80.0-98.0); NRBC Abs Auto 0.000 X10*3/uL (0.0-0.012); NRBC Pct Auto 0.0 /100WBC (0.0-0.2); Platelet Count 217 X10*3/uL (160-400); Red Blood Count 4.60 X10*6/uL (4.20-5.50); White Blood Count 9.0 X10*3/uL (4.8-10.8)
[2025-04-23 14:40] LABS: Ferritin 148 ng/mL (10-250)
[2025-04-23 14:42] LABS: Alanine Aminotransferase < 6 U/L (0-31); Albumin Level 3.8 g/dL (3.5-5.0); Alkaline Phosphatase 87 U/L (39-117); Anion Gap 14 (12-20); Aspartate Amino Transferase 11 U/L (5-31); Blood Urea Nitrogen 13 mg/dL (9-16); Calcium 9.5 mg/dL (8.4-10.2); Carbon Dioxide 26 mmol/L (22-29); Chloride 99 mmol/L (96-108); Estimated Glomerular Filt Rate > 60; Potassium 4.6 mmol/L (3.3-5.1); Sodium 134 mmol/L (135-145); Total Protein 7.3 g/dL (6.5-8.0)
[2025-04-23 16:14] LABS: Folate 10.5 ng/mL (> or = 4.0); Vitamin B12 689 pg/mL (200-900)
== END 2025-04-23 12:20 | disposition home or self-care (01) ==
LOC: HO.10HDL 12:19
PROVIDERS: Visit Provider Internal Medicine
DX: R11.0 Nausea (principal); F32.A Depression, unspecified; E11.69 Type 2 diabetes mellitus with other specified complication; E66.9 Obesity, unspecified; C22.1 Intrahepatic bile duct carcinoma; E03.9 Hypothyroidism, unspecified; G89.29 Other chronic pain; K59.03 Drug induced constipation; E11.9 Type 2 diabetes mellitus without complications; R53.1 Weakness; F41.8 Other specified anxiety disorders
CPT/HCPCS: 36415; 80053; 82306; 82607; 82728; 82746; 83036; 84443; 85025; 99215

== ENCOUNTER 2025-04-24 13:58 | Outpatient (REF) | payer MEDICARE, OTHER, SELFPAY ==
[2025-04-24 18:37] LABS: Cannabinoid Screen Urine Not Detected (Not Detect)
--- OUTSIDE RECORDS SUMMARY | 2025-04-24 20:53 | XMS_ITS | Clinical Summary ---
Author Organization [facility] Address [address] [address] Phone Care Team Providers Care Auto Carrier Driver Name Role Phone Jyothi Ayers MD Primary [...] Subscriber Plan / Payer (Ef fective 2006-Present) Name:Daphnie Avila Member ID:[id number] Relation to Subscriber:Self Name:Daphnie Avila Subscriber ID:[id number] Payer ID:[id number] Group ID:Not on file Type:Medicare Address: [facility] [employer] [address] [place] [phone] [employer] MEDICARE SUPPLEMENT MEDICARE PART A & B Member Subscriber Plan / Payer (Ef fective 2006-Present) Name:Daphnie Avila Member ID:[id number] Relation to Subscriber:Self Name:Daphnie Avila Subscriber ID:[id number] Payer ID:[id number] Group ID:Not on file Type:Medicare Address: [facility] [address] [place], [place] [phone] [facility] MEDICARE SUPPLEMENT MEDICARE PART A & B [facility] MEDICARE SUPPLEMENT MEDICARE PART A & B [facility] MEDICARE SUPPLEMENT MEDICARE PART A & B [facility] MEDICARE SUPPLEMENT MEDICARE PART A & B [employer] MEDICARE SUPPLEMENT MEDICARE PART A & B Member Subscriber Plan / Payer ( fective 2006-Present) Name:AustinDaphnie Member ID:[id number] Relation to Subscriber:Self Name:Sol Avilazabeth Subscriber ID:[id number] Payer ID:[id number] Group ID:Not on file Type:Medicare Address: [facility] [address] [place] [phone] [employer]ARE SUPPLEMENT MEDICARE PART A & B [employer] MEDICARE SUPPLEMENT Care Teams Auto Carrier Driver Relationship Specialty Start Date End Date Jyothi Ayers MD PCP - General Internal Medicine 10/17/18 Additional Source Comments The information contained in this document represents components of the legal health record. It is not the complete legal health record.[facility]
--- OUTSIDE RECORDS SUMMARY | 2025-04-24 20:54 | XMS_ITS ---
Author Organization [facility] Care Team Providers Care Building Maintenance Technician Name Role Phone Charlie See Unavailable Unavailable Triston Soni Unavailable Unavailable Ariana Humphreys Unavailable Unavailable Suki Miller Unavailable Unavailable Allergies and adverse reactions Code CodeSystem Substance Reaction Severity StartDate Concern Status 308264082 SNOMED CT Banana Diarrhea (code- 98564747, SNOMED CT) Mild 12/18/[address] Chocolate Eruption (code- 014032772, SNOMED CT) Mild 12/18/2023 active 84291 RXNORM Gabapentin Urticaria (code- 830929938, SNOMED CT) Mild 12/18/2023 active 5415482 RXNORM Latex Swelling (code- 97033638, SNOMED CT) Mild 12/18/2023 active 7454 RXNORM Macrobid Mild 12/18/2023 active 7984 RXNORM Penicillin Unknown 12/18/[address] Shell Fish Unknown 12/18/[address] Sulfa Antibiotics Unknown 12/18/2023 active 37210 RXNORM Tetracycline Unknown 12/18/[address] Tomato Diarrhea (code- 01343588, SNOMED CT) Mild 12/18/2023 active 08854 RXNORM Zofran Mild 12/18/2023 active Care Team Name Role Address Phone Organization Dates Suki Miller PCP [address] [facility] [address], [place], [address], [facility] (Office): : [facility] 12/18/2023 - 01/23/2024 Charlie See [address] [place] [address], [phone], [facility] (Office): [facility] 12/18/2023 - 01/23/2024 Triston Soni [address] [address], [place], [address], [facility] (Office): : : [facility] 12/18/2023 - 01/23/2024 Ariana Humphreys [address] [facility] [address], [place], [address], [facility] (Office): : [facility] 12/18/2023 - 01/23/2024 Goals Section Goals Description Status Target Date [place] my code status wishes through next review [...] Status 1 ADULT FAILURE TO THRIVE 12/18/[address] active 2 CHRONIC OBSTRUCTIVE PULMONARY DISEASE, UNSPECIFIED 12/18/[address] active 3 CONSTIPATION, UNSPECIFIED 12/18/[address] active 4 DEPRESSION, UNSPECIFIED 12/18/[address] active 5 EPIGASTRIC PAIN 12/18/[address] ac tive 6 ESSENTIAL (PRIMARY) HYPERTENSION 12/18/[address] active 7 HYPERLIPIDEMIA, UNSPECIFIED 12/18/[address] active 8 HYPO-OSMOLALITY AND HYPONATREMIA 12/18/[address] active 9 HYPOTHYROIDISM, UNSPECIFIED 12/18/[address] active 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 12/18/[address] active 11 OTHER ABNORMALITIES OF GAIT AND MOBILITY 12/18/[address] active 12 OTHER CHRONIC PAIN 12/18/[address] active 13 OTHER SPECIFIED ANXIETY DISORDERS 12/18/[address] active 14 PAIN IN RIGHT HIP 12/18/[address] active 15 PERSONAL HISTORY OF URINARY (TRACT) INFECTIONS 12/18/[address] active 16 POLYMYALGIA RHEUMATICA 12/18/[address] active 17 PRIMARY OSTEOARTHRITIS, UNSPECIFIED SITE 12/18/[address] active 18 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 12/18/[address] active 19 RHEUMATOID ARTHRITIS, UNSPECIFIED 12/18/[address] active 20 TYPE 2 DIABETES MELLITUS WITHOUT COMPLICATIONS 12/18/[address] active 21 UNSPECIFIED ASTHMA, UNCOMPLICATED 12/18/[address] active 22 URINARY TRACT INFECTION, SITE NOT SPECIFIED 12/18/[address] active 23 WEAKNESS 12/18/[address] active Reason for Referral No Reasons for Referral Entered Social History Social History Observation Description Start Date End Date Code Code System Current Smoking Status Tobacco smoking consumption unknown 957690413 SNOMED CT Sex Assigned At Female 1945 57481-7 [facility] Gender Identity Sexual Orientation Vital Signs Code Code System Vitals Name Values and Units Timing Information 2339-0 [facility] Blood Sugar Ccekd=749.0 Units=mg/dL 01/23/2024 88633-9 [facility] Pain Level Value=3.0 01/23/2024 9279-1 [facility] Respiratory Rate Value=18.0 Units=/m in 01/23/2024 8867-4 [facility] Heart rate Value=76.0 Units=/min 78047-3 [facility] O2 % BldC Oximetry Value=98.0 Units= % 01/23/2024 8462-4 [facility] Blood Pressure-Diastolic Value=63 Un its=mmHg 01/23/2024 8480-6 [facility] Blood Pressure-Systolic Zmfop=326 Un its=mmHg 01/23/2024 8310-5 [facility] Body Temperature Value=97.4 Units= F 01/23/2024 95816-5 [facility] Weight Vhmiv=783.5 Units=Lbs 11/2023 8302-2 [facility] Height Value=63.0 Units=Inches 12/18/2023
--- OUTSIDE RECORDS SUMMARY | 2025-04-24 20:54 | XMS_ITS | Encounter Summary ---
Author Organization [facility] Address [address] [place] [address] Care Team Providers Care Earth Science Teacher Name Role Phone Jyothi Ayers MD Primary Care Provider +1- [phone] Encounter Details Date Type Department Care Team (Late st Contact Info) Description 06/05/2024 Lab Requisition [facility] - Main Lab [address] [facility] [place] [address] Petros Kumar MD [address] [place] [address] Dysuria Social History Tobacco Use Types Packs/Day [...] reflex microscopic (06/04/2024 9:25 PM EST) Specific [place] Urine 1.010 1.003 - 1.030 LAB URINALYSIS - AUTOMATED METHOD 06/05/2024 10:16 AM [facility] pH, Urine 6.0 5.0 - 8.0 pH LAB URINALYSIS - AUTOMATED METHOD 06/05/2024 10:16 AM [facility] Leukocytes, Urine Negative Negative LAB URINALYSIS - AUTOMATED METHOD 06/05/2024 10:16 AM [facility] Nitrite, Urine Negative Negative LAB URINALYSIS - AUTOMATED METHOD 06/05/2024 10:16 AM [facility] Protein, Urine Negative <=Trace mg/dL LAB URINALYSIS - AUTOMATED METHOD 06/05/2024 10:16 AM [facility] Glucose, Urine Negative Negative mg/dL LAB URINALYSIS - AUTOMATED METHOD 06/05/2024 10:16 AM [facility] Ketones, Urine Negative Negative mg/dL LAB URINALYSIS - AUTOMATED METHOD 06/05/2024 10:16 AM [facility] Urobilinogen, Urine 0.2 0.2 - 1.0 mg/dL LAB URINALYSIS - AUTOMATED METHOD 06/05/2024 10:16 AM [facility] Bilirubin, Urine Negative Negative LAB URINALYSIS - AUTOMATED METHOD 06/05/2024 10:16 AM [facility] Blood, Urine Negative Negative LAB URINALYSIS - AUTOMATED METHOD 06/05/2024 10:16 AM [facility] Urine Urine specimen obtained by clean catch procedure / Unknown Non-blood Collection / Unknown 06/04/2024 9:25 PM EST 06/05/2024 9:49 AM EST us Petros Kumar MD LAB URINE ORDERABLES Final Resul t [facility] [address] [place] [address], * Culture urine (06/04/2024 9:25 PM EST) Culture, Urine No growth 06/06/2024 7:35 AM EST [facility] Urine Urine specimen obtained by clean catch procedure / Unknown Non-blood Collection / Unknown 06/04/2024 9:25 PM EST 06/05/2024 9:49 AM EST us Petros Kumar MD LAB MICROBIOLOGY - GENERAL ORDER ENRRIQUE Final Result [facility] [address] [place] [address], documented in this encounter Visit Diagnoses Diagnosis Dysuria documented in this encounter Care Teams Earth Science Teacher Relationship Specialty Start Date End Date Jyothi Ayers MD [address] [place] [address] PCP - General 04/10/22 documented as of this encounter
--- OUTSIDE RECORDS SUMMARY | 2025-04-24 20:54 | XMS_ITS | Encounter Summary ---
Author Organization [facility] Address [address] [place] [address] Phone Care Team Providers Care Vacation Sales Advisor Name Role Phone Jyothi Ayers MD Primary Care Provider + Encounter Details Date Type Department Care Team (Late st Contact Info) Description 10/17/2018 Procedure Pass [address] [address] Social History Tobacco Use Types Packs/Day Years [...] on filedocumented in this encounter Care Teams Vacation Sales Advisor Relationship Specialty Start Date End Date Jyothi Ayers MD PCP - General Internal Medicine 10/17/18 documented as of this encounter Additional Source Comments The information contained in this document represents components of the legal health record. It is not the complete legal health record.[facility]
--- OUTSIDE RECORDS SUMMARY | 2025-04-24 20:54 | XMS_ITS | Encounter Summary ---
Author Organization [facility] Address [address] [facility] [place] [address] [place] [address] Phone Care Team Providers Care Medical Sales Consultant Name Role Phone Jyothi Ayers MD Primary Care Provider + Encounter Details Date Type Department Care Team (Late st Contact Info) Description 10/17/2018 Ancillary Orders [facility], X-Ray - [facility] [address] [place] [address] Latesha Sotelo, CLERK GUIDE [address] [place] [id number] [email or web address] Social History Tobacco Use Types Packs/Day [...] degenerative arthritis. POS - [id number] Latesha Sotelo CLERK GUIDE IMG XR PELVIS Final Result documented in this encounter Visit Diagnoses Diagnosis Pain Generalized pain Pain Generalized pain documented in this encounter Care Teams Medical Sales Consultant Relationship Specialty Start Date End Date Jyothi Ayers MD PCP - General Internal Medicine 10/17/18 documented as of this encounter Additional Source Comments The information contained in this document represents components of the legal health record. It is not the complete legal health record.[facility]
--- OUTSIDE RECORDS SUMMARY | 2025-04-24 20:54 | XMS_ITS | Encounter Summary ---
Author Organization [facility] Address [address] [place] [address] Care Team Providers Care Road Packer Operator Name Role Phone Jyothi Ayers MD Primary Care Provider +1- [phone] Encounter Details Date Type Department Care Team (Late st Contact Info) Description 06/05/2024 Lab Requisition [facility] - Main Lab 299 [facility] [place] [address] Petros Kumar MD [address] [place], [place] [id number] Chronic obstructive pulmonary disease, unspecified (CMS/HCC V24, [...] mmol/L LAB CHEMISTRY METHOD 06/05/2024 10:[address] [facility] Potassium 4.2 3.5 - 5.5 mmol/L LAB CHEMISTRY METHOD 06/05/2024 10:[address] [facility] Chloride 104 96 - 110 mmol/L LAB CHEMISTRY METHOD 06/05/2024 10:[address] [facility] CO2 32 21 - 32 mmol/L LAB CHEMISTRY METHOD 06/05/2024 10:[address] [facility] Anion Gap 3 3 - 11 LAB CHEMISTRY METHOD 06/05/2024 10:[address] [facility] Glucose 58(L) 70 - 100 mg/dL LAB CHEMISTRY METHOD 06/05/2024 10:[address] [facility] BUN 11 5 - 25 mg/dL LAB CHEMISTRY METHOD 06/05/2024 10:[address] [facility] Creatinine 0.55 0.50 - 1.10 mg/dL LAB CHEMISTRY METHOD 06/05/2024 10:[address] [facility] eGFR 92 >=60 mL/min/1. 73m2 LAB CHEMISTRY METHOD 06/05/2024 10:[address] [facility] Comment:Calculation based on the Chronic Kidney Disease Epidemiology Collaboration (CKD-EPI) equation refit without adjustment for race. BUN/Creatinine Ratio 20.0 LAB CHEMISTRY METHOD 06/05/2024 10:[address] [facility] Calcium 8.8 8.5 - 10.5 mg/dL LAB CHEMISTRY METHOD 06/05/2024 10:[address] [facility] Blood Venous blood specimen / Unknown Venipuncture / Unknown 06/05/2024 6:56 AM EST 06/05/2024 9:43 AM EST us Petros Kumar MD LAB BLOOD ORDERABLES Final Resul t [facility] [address] [place] [address], * (ABNORMAL) Complete blood count (06/05/2024 6:56 AM EST) WBC 4.9 4.8 - 10.8 K/mcL LAB HEMETOLOGY METHOD 06/05/2024 10:[address] [facility] RBC 3.50(L) 3.80 - 4.80 M/mcL LAB HEMETOLOGY METHOD 06/05/2024 10:[address] [facility] Hemoglobin 9.6(L) 11.5 - 16.0 g/dL LAB HEMETOLOGY METHOD 06/05/2024 10:[address] [facility] Hematocrit 31.0(L) 35.0 - 47.0 % LAB HEMETOLOGY METHOD 06/05/2024 10:[address] [facility] MCV 89.9 79.0 - 98.0 FL LAB HEMETOLOGY METHOD 06/05/2024 10:[address] [facility] MCH 27.8 27.0 - 32.0 pcg LAB HEMETOLOGY METHOD 06/05/2024 10:[address] [facility] MCHC 31.0(L) 32.0 - 37.0 g/dL LAB HEMETOLOGY METHOD 06/05/2024 10:[address] [facility] RDW 12.8 11.0 - 15.0 % LAB HEMETOLOGY METHOD 06/05/2024 10:[address] [facility] Platelets 181 130 - 400 K/mcL LAB HEMETOLOGY METHOD 06/05/2024 10:[address] [facility] MPV 11.4(H) 7.0 - 11.0 FL LAB HEMETOLOGY METHOD 06/05/2024 10:02 AM EST [facility] NRBC 0.0 <1.0 % LAB HEMETOLOGY METHOD 06/05/2024 10:02 AM EST [facility] NRBC Absolute 0.00 <0.10 K/mcL LAB HEMETOLOGY METHOD 06/05/2024 10:02 AM EST [facility] Blood Venous blood specimen / Unknown Venipuncture / Unknown 06/05/2024 6:56 AM EST 06/05/2024 9:43 AM EST us Petros Kumar MD LAB BLOOD ORDERABLES Final Resul t [facility] [address] [place] [address], documented in this encounter Visit Diagnoses Diagnosis Chronic obstructive pulmonary disease, unspecified (CMS/HCC V24, CMS/HCC V28) Type 2 diabetes mellitus without complications (CMS/HCC V24, CMS/HCC V28) documented in this encounter Care Teams Road Packer Operator Relationship Specialty Start Date End Date Jyothi Ayers MD [address] [place] [address] PCP - General 04/10/22 documented as of this encounter
--- OUTSIDE RECORDS SUMMARY | 2025-04-24 20:54 | XMS_ITS | Encounter Summary ---
Author Organization [facility] Address [address] [facility] [address] [place] [address] Phone Care Team Providers Care Chief Solution Architect Name Role Phone Jyothi Ayers MD Primary Care Provider + Reason for Referral * MRI/CAT Scan - Closed Specialty Diagnoses / Procedures Referred By Contac t Referred To Contact Radiology Diagnoses Lumbar radiculopathy Procedures MRI Lumbar Spine Latesha Sotelo NP Phone: tel: fax: mailto:[email or web address] Referral ID Status Reason Start Date Expiration Date Visits Re quested Visits Authorized [id number] Closed 10/17/2018 10/17/2019 1 1 Encounter Details Date Type Department Care Team (Latest Contact Info) Description 10/17/2018 Ancillary Orders Virtual Department [address] [place] [address] Latesha Sotelo NP [address] [place] [phone] [email or web address] Lumbar radiculopathy Social History Tobacco Use Types [...] without deviation of the nerves. POS - [id number] Edited by: Ashley Meade on 10/30/2018 8:36 [...] without deviation of the nerves. POS - [id number] Edited by: Ashley Meade on 10/30/2018 8:36 PM Latesha Sotelo SOLAR INSTALLER TECHNICIAN IMG MR [id number] Final Result documented in this encounter Visit Diagnoses Diagnosis Lumbar radiculopathy Thoracic or lumbosacral neuritis or radiculitis, unspecified Lumbar radiculopathy Thoracic or lumbosacral neuritis or radiculitis, unspecified documented in this encounter Care Teams Chief Solution Architect Relationship Specialty Start Date End Date Jyothi Ayers MD PCP - General Internal Medicine 10/17/18 documented as of this encounter Additional Source Comments The information contained in this document represents components of the legal health record. It is not the complete legal health record.[facility]
--- OUTSIDE RECORDS SUMMARY | 2025-04-24 20:54 | XMS_ITS | Encounter Summary ---
Author Organization [facility] Address [address] [facility] [address] [place] [address] Phone Care Team Providers Care Shale Miner Blasting Name Role Phone Jyothi Ayers MD Primary Care Provider + Encounter Details Date Type Department Care Team (Late st Contact Info) Description 10/17/2018 Ancillary Orders [facility], X-Ray - [address] [address] Latesha Sotelo, POLISHER HAND [address] [place] [phone] [email or web address] Pain in right hip Social [...] degenerative arthritis. POS - [id number] Latesha Sotelo POLISHER HAND IMG XR PELVIS Final Result documented in this encounter Visit Diagnoses Diagnosis Pain in right hip Pain in right hip documented in this encounter Care Teams Shale Miner Blasting Relationship Specialty Start Date End Date Jyothi Ayers MD PCP - General Internal Medicine 10/17/18 documented as of this encounter Additional Source Comments The information contained in this document represents components of the legal health record. It is not the complete legal health record.[facility]
--- OUTSIDE RECORDS SUMMARY | 2025-04-24 20:54 | XMS_ITS | Clinical Summary ---
Author Organization [address] Address [address] [place] [phone] Phone Care Team Providers Care Esol Teacher Assistant Name Role Phone Jyothi Ayers MD Primary Care Provider +1- [phone] Social History Tobacco Use Types Packs/Day Years [...] Type 2 diabetes mellitus without complications (CMS/HCC) [facility] DEXA AXIAL SKELETON Routine 10/07/2021 2:26 PM EDT Encounter for screening for osteoporosis from Last 3 Months or Most Recently Relevant to Health Maintenance Results * (ABNORMAL) Comprehensive metabolic panel (06/17/2024 7:10 AM EST) Pathologist [facility] Sodium 139 133 - 145 mmol/L LAB CHEMISTRY METHOD 06/17/2024 11:20 AM [facility] Potassium 4.0 3.5 - 5.5 mmol/L LAB CHEMISTRY METHOD 06/17/2024 11:20 AM [facility] Chloride 104 96 - 110 mmol/L LAB CHEMISTRY METHOD 06/17/2024 11:20 AM [facility] CO2 31 21 - 32 mmol/L LAB CHEMISTRY METHOD 06/17/2024 11:20 AM [facility] Anion Gap 4 3 - 11 LAB CHEMISTRY METHOD 06/17/2024 11:20 AM [facility] Glucose 83 70 - 100 mg/dL LAB CHEMISTRY METHOD 06/17/2024 11:20 AM [facility] BUN 12 5 - 25 mg/dL LAB CHEMISTRY METHOD 06/17/2024 11:20 AM [facility] Creatinine 0.63 0.50 - 1.10 mg/dL LAB CHEMISTRY METHOD 06/17/2024 11:20 AM [facility] eGFR 89 >=60 mL/min/1. 73m2 LAB CHEMISTRY METHOD 06/17/2024 11:20 AM [facility] Comment:Calculation based on the Chronic Kidney Disease Epidemiology Collaboration (CKD-EPI) equation refit without adjustment for race. BUN/Creatinine Ratio 19.0 LAB CHEMISTRY METHOD 06/17/2024 11:20 AM [facility] Calcium 8.8 8.5 - 10.5 mg/dL LAB CHEMISTRY METHOD 06/17/2024 11:20 AM [facility] AST (SGOT) 6(L) 10 - 42 unit/L LAB CHEMISTRY METHOD 06/17/2024 11:20 AM [facility] ALT (SGPT) 10 10 - 60 unit/L LAB CHEMISTRY METHOD 06/17/2024 11:20 AM [facility] Alkaline Phosphatase 68 42 - 121 unit/L LAB CHEMISTRY METHOD 06/17/2024 11:20 AM [facility] Total Protein 5.6(L) 6.0 - 8.0 g/dL LAB CHEMISTRY METHOD 06/17/2024 11:20 AM [facility] Albumin 2.6(L) 3.2 - 5.0 g/dL LAB CHEMISTRY METHOD 06/17/2024 11:20 AM [facility] Total Bilirubin 0.2 0.0 - 1.4 mg/dL LAB CHEMISTRY METHOD 06/17/2024 11:20 AM [facility] Blood Venous blood specimen / Unknown Venipuncture / Unknown 06/17/2024 7:10 AM EST 06/17/2024 9:19 AM EST us Petros Kumar MD LAB BLOOD ORDERABLES Final Resul t [facility] [address] [place] [address], * Hemoglobin A1c (05/28/2024 8:15 AM EST) Hemoglobin A1C 6.4 <6.5 % LAB CHEMISTRY METHOD 05/28/2024 1:07 PM [facility] Mean Bld Glu Estim. 137 mg/dL LAB CHEMISTRY METHOD 05/28/2024 1:07 PM [facility] Blood Venous blood specimen / Unknown Venipuncture / Unknown 05/28/2024 8:15 AM EST 05/28/2024 9:44 AM EST us Petros Kumar MD LAB BLOOD ORDERABLES Final Resul t [facility] [address] [place] [address], [place] [phone] * [facility] DEXA AXIAL SKELETON (10/07/2021 2:26 PM EDT) Anatomical Region Laterality Modality Mammography 10/07/2021 1:27 PM EDT Narrative 10/07/2021 2:26 PM EDT [facility] Diagnostic Imaging Department [address] [place] [address] Patient: DAPHNIE BUSTAMANTE./Age/Sex: 1945 - 76 - F Unit#: [id number] Location/Status: [facility] Mnemonic[facility] Order[facility] Physician: KEVIN JEAN MD [facility] Dexa Axial Skeleton - 10/07/21 - 1403 [facility] Dexa Axial Skeleton INDICATION: POSTMENOPAUSAL [...] placing the patient at risk for fracture. [id number] Dictating Physician: MARIBEL BUSCH MD Electronically Signed by: MARIBEL BUSCH MD Dic Date/Time: 10/07/21 142 Sign date/Time: 10/07/21 142 Procedure Note Maribel Busch MD - 05/31/2022 [facility] Diagnostic Imaging Department [address] [place] [address] Patient: DAPHNIE BUSTAMANTE D.O.B./Age/Sex: 1945 - 76 - F Unit#: [id number] Location/Status: SPD[facility]AM/REG CLI Mnemonic/Ordering Site: [facility] Ordering Physician: KEVIN JEAN MD [facility] Dexa Axial Skeleton - 10/07/21 - 1403 [facility] Dexa Axial Skeleton INDICATION: POSTMENOPAUSAL [...] osteoporosis, placing the patient at risk forfracture. [id number] Dictating Physician: MARIBEL BUSCH MD Electronically Signed by: MARIBEL BUSCH MD Dic Date/Time: 10/07/21 142 Sign date/Time: 10/07/21 142 Kevin Jean MD IMG BI PROCEDURES Final Result from Last 3 Months or Most Recently Relevant to Health Maintenance Insurance MEDICAID - [place] [facility] MEDICARE Care Teams Esol Teacher Assistant Relationship Specialty Start Date End Date Jyothi Ayers MD [address] [place] [phone] [facility] - General 04/10/22
--- OUTSIDE RECORDS SUMMARY | 2025-04-24 20:55 | XMS_ITS | Encounter Summary ---
Author Organization [facility] Address [address] [place] [address] Care Team Providers Care Diesel Bus Mechanic Name Role Phone Jyothi Ayers MD Primary Care Provider +1- [phone] Encounter Details Date Type Department Care Team (Late st Contact Info) Description 05/02/2024 Lab Requisition [facility] - Main Lab 299 [facility] [place] [address] Petros Kumar MD [address] [place] [address] Essential (primary) hypertension Social History Tobacco Use [...] LAB CHEMISTRY METHOD 2024 4:21 PM EST [facility] Potassium 3.9 3.5 - 5.5 mmol/L LAB CHEMISTRY METHOD 2024 4:21 PM [facility] Chloride 107 96 - 110 mmol/L LAB CHEMISTRY METHOD 2024 4:21 PM [facility] CO2 28 21 - 32 mmol/L LAB CHEMISTRY METHOD 2024 4:21 PM [facility] Anion Gap 8 3 - 11 LAB CHEMISTRY METHOD 2024 4:21 PM [facility] Glucose 55(L) 70 - 100 mg/dL LAB CHEMISTRY METHOD 2024 4:21 PM [facility] BUN 9 5 - 25 mg/dL LAB CHEMISTRY METHOD 2024 4:21 PM [facility] Creatinine 0.49(L) 0.50 - 1.10 mg/dL LAB CHEMISTRY METHOD 2024 4:21 PM [facility] eGFR 95 >=60 mL/min/1. 73m2 LAB CHEMISTRY METHOD 2024 4:21 PM [facility] Comment:Calculation based on the Chronic Kidney Disease Epidemiology Collaboration (CKD-EPI) equation refit without adjustment for race. BUN/Creatinine Ratio 18.4 LAB CHEMISTRY METHOD 2024 4:21 PM [facility] Calcium 9.1 8.5 - 10.5 mg/dL LAB CHEMISTRY METHOD 2024 4:21 PM [facility] Blood Venous blood specimen / Unknown Venipuncture / Unknown 2024 6:28 AM EST 2024 11:52 AM EST us Petros Kumar MD LAB BLOOD ORDERABLES Final Resul t [facility] [address] [place] [address], * (ABNORMAL) Complete blood count (2024 6:28 AM EST) [facility] WBC 5.9 4.8 - 10.8 K/mcL LAB HEMETOLOGY METHOD 2024 1:19 PM [facility] RBC 3.80 3.80 - 4.80 M/mcL LAB HEMETOLOGY METHOD 2024 1:19 PM [facility] Hemoglobin 10.8(L) 11.5 - 16.0 g/dL LAB HEMETOLOGY METHOD 2024 1:19 PM [facility] Hematocrit 34.8(L) 35.0 - 47.0 % LAB HEMETOLOGY METHOD 2024 1:19 PM [facility] MCV 92.6 79.0 - 98.0 FL LAB HEMETOLOGY METHOD 2024 1:19 PM [facility] MCH 28.7 27.0 - 32.0 pcg LAB HEMETOLOGY METHOD 2024 1:19 PM [facility] MCHC 31.0(L) 32.0 - 37.0 g/dL LAB HEMETOLOGY METHOD 2024 1:19 PM [facility] RDW 12.6 11.0 - 15.0 % LAB HEMETOLOGY METHOD 2024 1:19 PM [facility] Platelets 202 130 - 400 K/mcL LAB HEMETOLOGY METHOD 2024 1:19 PM [facility] MPV 11.7(H) 7.0 - 11.0 FL LAB HEMETOLOGY METHOD 2024 1:19 PM [facility] NRBC 0.0 <1.0 % LAB HEMETOLOGY METHOD 2024 1:19 PM [facility] NRBC Absolute 0.00 <0.10 K/mcL LAB HEMETOLOGY METHOD 2024 1:19 PM EST [facility] Blood Venous blood specimen / Unknown Venipuncture / Unknown 2024 6:28 AM EST 2024 11:52 AM EST us Petros Kumar MD LAB BLOOD ORDERABLES Final Resul t [facility] [address] [place] [address], documented in this encounter Visit Diagnoses Diagnosis Essential (primary) hypertension Unspecified essential hypertension documented in this encounter Care Teams Diesel Bus Mechanic Relationship Specialty Start Date End Date Jyothi Ayers MD [address] [place] [address] PCP - General 04/10/22 documented as of this encounter
--- OUTSIDE RECORDS SUMMARY | 2025-04-24 20:55 | XMS_ITS | Encounter Summary ---
Author Organization [facility] Address [address] [place] [address] Care Team Providers Care Probation Supervisor Name Role Phone Jyothi Ayers MD Primary Care Provider +1- [phone] Encounter Details Date Type Department Care Team (Late st Contact Info) Description 04/18/2024 Lab Requisition [facility] - Main Lab 299 [facility] [place] [address] Petros Kumar MD [address] [place] [address] Essential (primary) hypertension Social History Tobacco Use [...] LAB CHEMISTRY METHOD 04/21/2024 10:29 AM EST [facility] Potassium 4.2 3.5 - 5.5 mmol/L LAB CHEMISTRY METHOD 04/21/2024 10:29 AM [facility] Chloride 105 96 - 110 mmol/L LAB CHEMISTRY METHOD 04/21/2024 10:29 AM [facility] CO2 32 21 - 32 mmol/L LAB CHEMISTRY METHOD 04/21/2024 10:29 AM [facility] Anion Gap 4 3 - 11 LAB CHEMISTRY METHOD 04/21/2024 10:29 AM [facility] Glucose 102(H) 70 - 100 mg/dL LAB CHEMISTRY METHOD 04/21/2024 10:29 AM [facility] BUN 12 5 - 25 mg/dL LAB CHEMISTRY METHOD 04/21/2024 10:29 AM [facility] Creatinine 0.55 0.50 - 1.10 mg/dL LAB CHEMISTRY METHOD 04/21/2024 10:29 AM [facility] eGFR 93 >=60 mL/min/1. 73m2 LAB CHEMISTRY METHOD 04/21/2024 10:29 AM [facility] Comment:Calculation based on the Chronic Kidney Disease Epidemiology Collaboration (CKD-EPI) equation refit without adjustment for race. BUN/Creatinine Ratio 21.8 LAB CHEMISTRY METHOD 04/21/2024 10:29 AM [facility] Calcium 9.5 8.5 - 10.5 mg/dL LAB CHEMISTRY METHOD 04/21/2024 10:29 AM [facility] Blood Venous blood specimen / Unknown Venipuncture / Unknown 04/21/2024 6:52 AM EST 04/21/2024 9:49 AM EST us Petros Kumar MD LAB BLOOD ORDERABLES Final Resul t [facility] [address] [place] [address], * (ABNORMAL) Complete blood count (04/21/2024 6:52 AM EST) [facility] WBC 4.9 4.8 - 10.8 K/mcL LAB HEMETOLOGY METHOD 04/21/2024 10:41 AM [facility] RBC 3.90 3.80 - 4.80 M/mcL LAB HEMETOLOGY METHOD 04/21/2024 10:41 AM [facility] Hemoglobin 11.1(L) 11.5 - 16.0 g/dL LAB HEMETOLOGY METHOD 04/21/2024 10:41 AM [facility] Hematocrit 36.0 35.0 - 47.0 % LAB HEMETOLOGY METHOD 04/21/2024 10:41 AM [facility] MCV 92.3 79.0 - 98.0 FL LAB HEMETOLOGY METHOD 04/21/2024 10:41 AM [facility] MCH 28.5 27.0 - 32.0 pcg LAB HEMETOLOGY METHOD 04/21/2024 10:41 AM [facility] MCHC 30.8(L) 32.0 - 37.0 g/dL LAB HEMETOLOGY METHOD 04/21/2024 10:41 AM [facility] RDW 12.9 11.0 - 15.0 % LAB HEMETOLOGY METHOD 04/21/2024 10:41 AM [facility] Platelets 179 130 - 400 K/mcL LAB HEMETOLOGY METHOD 04/21/2024 10:41 AM [facility] MPV 11.5(H) 7.0 - 11.0 FL LAB HEMETOLOGY METHOD 04/21/2024 10:41 AM [facility] NRBC 0.0 <1.0 % LAB HEMETOLOGY METHOD 04/21/2024 10:41 AM [facility] NRBC Absolute 0.00 <0.10 K/mcL LAB HEMETOLOGY METHOD 04/21/2024 10:41 AM EST [facility] Blood Venous blood specimen / Unknown Venipuncture / Unknown 04/21/2024 6:52 AM EST 04/21/2024 9:49 AM EST us Petros Kumar MD LAB BLOOD ORDERABLES Final Resul t [facility] [address] [place] [address], documented in this encounter Visit Diagnoses Diagnosis Essential (primary) hypertension Unspecified essential hypertension documented in this encounter Care Teams Probation Supervisor Relationship Specialty Start Date End Date Jyothi Ayers MD [address] [place] [address] PCP - General 04/10/22 documented as of this encounter
--- OUTSIDE RECORDS SUMMARY | 2025-04-24 20:55 | XMS_ITS | Encounter Summary ---
Author Organization [facility] [address] Address [address] [place] [address] Care Team Providers Care Assistant Office Manager Name Role Phone Jyothi Ayers MD Primary Care Provider +1- [phone] Encounter Details Date Type Department Care Team (Late st Contact Info) Description 04/27/[address] [facility] - Main Lab 299 [facility] [place] [address] Petros Kumar MD [address] [place] [address] Dysuria Social History Tobacco Use Types Packs/Day [...] Sandi albicans/du bliniensis( A) 04/29/2024 9:21 AM [facility] Comment: The organism value for this result has been updated. These results have been appended to the previously preliminary verified report. Urine Urine specimen obtained by clean catch procedure / Unknown 04/26/2024 4:45 PM EST 04/27/2024 9:13 AM EST us Petros Kumar MD LAB MICROBIOLOGY - GENERAL ORDER ENRRIQUE Final Result [facility] [address] [place] [address], [place] [phone] * (ABNORMAL) Urinalysis with reflex microscopic and culture (04/26/2024 4:45 PM EST) [facility] [place] Urine 1.012 1.003 - 1.030 LAB URINALYSIS - AUTOMATED METHOD 04/27/2024 9:13 AM [facility] pH, Urine 6.0 5.0 - 8.0 pH LAB URINALYSIS - AUTOMATED METHOD 04/27/2024 9:13 AM [facility] Leukocytes, Urine Moderate(A) Negative LAB URINALYSIS - AUTOMATED METHOD 04/27/2024 9:13 AM [facility] Nitrite, Urine Negative Negative LAB URINALYSIS - AUTOMATED METHOD 04/27/2024 9:13 AM [facility] Protein, Urine Negative <=Trace mg/dL LAB URINALYSIS - AUTOMATED METHOD 04/27/2024 9:13 AM [facility] Glucose, Urine Negative Negative mg/dL LAB URINALYSIS - AUTOMATED METHOD 04/27/2024 9:13 AM [facility] Ketones, Urine Negative Negative mg/dL LAB URINALYSIS - AUTOMATED METHOD 04/27/2024 9:13 AM [facility] Urobilinogen , Urine 0.2 0.2 - 1.0 mg/dL LAB URINALYSIS - AUTOMATED METHOD 04/27/2024 9:13 AM [facility] Bilirubin, Urine Negative Negative LAB URINALYSIS - AUTOMATED METHOD 04/27/2024 9:13 AM [facility] Blood, Urine Negative Negative LAB URINALYSIS - AUTOMATED METHOD 04/27/2024 9:13 AM [facility] RBC, Urine 0 0 - 4 /HPF LAB URINALYSIS - AUTOMATED METHOD 04/27/2024 9:13 AM [facility] WBC, Urine 49(H) 0 - 4 /HPF LAB URINALYSIS - AUTOMATED METHOD 04/27/2024 9:13 AM [facility] Squamous Epithelial, Urine 60 0 - 60 /LPF LAB URINALYSIS - AUTOMATED METHOD 04/27/2024 9:13 AM [facility] Bacteria, Urine Negative Negative /HPF LAB URINALYSIS - AUTOMATED METHOD 04/27/2024 9:13 AM [facility] Hyaline Casts, Urine 0 0 - 3 /LPF LAB URINALYSIS - AUTOMATED METHOD 04/27/2024 9:13 AM [facility] Yeast, Urine Present(A) None /HPF LAB URINALYSIS - AUTOMATED METHOD 04/27/2024 9:13 AM [facility] Urine Urine specimen obtained by clean catch procedure / Unknown 04/26/2024 4:45 PM EST 04/27/2024 8:32 AM EST us Petros Kumar MD LAB URINE ORDERABLES Final Resul t [facility] [address] [place] [address], * Ramirez urine culture tube (04/26/2024 4:45 PM EST) Extra Tube Hold for add-ons. 04/27/2024 10:01 AM EST [facility] Comment:Auto resulted. Urine Urine specimen obtained by clean catch procedure / Unknown 04/26/2024 4:45 PM EST 04/27/2024 8:32 AM EST us Petros Kumar MD LAB URINE ORDERABLES Final Resul t [facility] [address] [place] [address], [place] [phone] documented in this encounter Visit Diagnoses Diagnosis Dysuria documented in this encounter Care Teams Assistant Office Manager Relationship Specialty Start Date End Date Jyothi Ayers MD [address] [place] [address] PCP - General 04/10/22 documented as of this encounter
--- OUTSIDE RECORDS SUMMARY | 2025-04-24 20:55 | XMS_ITS | Encounter Summary ---
Author Organization [facility] Address [address] [place] [address] Care Team Providers Care Six Sigma Black Trainer Name Role Phone Jyothi Ayers MD Primary Care Provider +1- [phone] Encounter Details Date Type Department Care Team (Late st Contact Info) Description 04/14/2024 Lab Requisition [facility] - Main Lab [address] [facility] [place] [address] Petros Kumar MD [address] [place] [address] Essential (primary) hypertension Social History Tobacco Use [...] Travel phlebotomy fee (04/14/2024 6:53 AM EST) [facility] TRAVEL PHLEBOTOMY FEE Completed 04/14/2024 11:02 AM EST [facility] Blood Venous blood specimen / Unknown Venipuncture / Unknown 04/14/2024 6:53 AM EST 04/14/2024 10:33 AM EST us Petros Kumar MD LAB BLOOD ORDERABLES Final Resul t Performing Organization Address [facility]/ZIP Co de Phone Number [facility] [address] [place] [address], [place] [phone] * (ABNORMAL) Vitamin B12 and folate (04/14/2024 6:53 AM EST) [facility] Vitamin B-12 645 250 - 900 pcg/mL LAB CHEMISTRY METHOD 04/14/2024 12:24 PM [facility] Folate >20.0(H) 2.8 - 17.0 ng/ml LAB CHEMISTRY METHOD 04/14/2024 12:24 PM EST [facility] Blood Venous blood specimen / Unknown Venipuncture / Unknown 04/14/2024 6:53 AM EST 04/14/2024 10:33 AM EST us Petros Kumar MD LAB BLOOD ORDERABLES Final Resul t Performing Organization Address [facility]/ZIP Co de Phone Number [facility] [address] [place] [address], [place] [phone] * Thyroid stimulating hormone (04/14/2024 6:53 AM EST) [facility] TSH 0.79 0.40 - 4.00 mcIU/mL LAB CHEMISTRY METHOD 04/14/2024 12:08 PM EST [facility] Blood Venous blood specimen / Unknown Venipuncture / Unknown 04/14/2024 6:53 AM EST 04/14/2024 10:33 AM EST Petros Kumar MD LAB BLOOD ORDERABLES Final Resul t [facility] [address] [place] [address], * (ABNORMAL) Comprehensive metabolic panel (04/14/2024 6:53 AM EST) Sodium 141 133 - 145 mmol/L LAB CHEMISTRY METHOD 04/14/2024 12:24 PM [facility] Potassium 3.7 3.5 - 5.5 mmol/L LAB CHEMISTRY METHOD 04/14/2024 12:24 PM [facility] Chloride 106 96 - 110 mmol/L LAB CHEMISTRY METHOD 04/14/2024 12:24 PM [facility] CO2 30 21 - 32 mmol/L LAB CHEMISTRY METHOD 04/14/2024 12:24 PM [facility] Anion Gap 5 3 - 11 LAB CHEMISTRY METHOD 04/14/2024 12:24 PM [facility] Glucose 132(H) 70 - 100 mg/dL LAB CHEMISTRY METHOD 04/14/2024 12:24 PM [facility] BUN 7 5 - 25 mg/dL LAB CHEMISTRY METHOD 04/14/2024 12:24 PM [facility] Creatinine 0.54 0.50 - 1.10 mg/dL LAB CHEMISTRY METHOD 04/14/2024 12:24 PM [facility] eGFR 93 >=60 mL/min/1. 73m2 LAB CHEMISTRY METHOD 04/14/2024 12:24 PM [facility] Comment:Calculation based on the Chronic Kidney Disease Epidemiology Collaboration (CKD-EPI) equation refit without adjustment for race. BUN/Creatinine Ratio 13.0 LAB CHEMISTRY METHOD 04/14/2024 12:24 PM [facility] Calcium 9.2 8.5 - 10.5 mg/dL LAB CHEMISTRY METHOD 04/14/2024 12:24 PM [facility] AST (SGOT) 20 10 - 42 unit/L LAB CHEMISTRY METHOD 04/14/2024 12:24 PM [facility] ALT (SGPT) 10 10 - 60 unit/L LAB CHEMISTRY METHOD 04/14/2024 12:24 PM [facility] Alkaline Phosphatase 75 42 - 121 unit/L LAB CHEMISTRY METHOD 04/14/2024 12:24 PM [facility] Total Protein 6.2 6.0 - 8.0 g/dL LAB CHEMISTRY METHOD 04/14/2024 12:24 PM [facility] Albumin 3.0(L) 3.2 - 5.0 g/dL LAB CHEMISTRY METHOD 04/14/2024 12:24 PM [facility] Total Bilirubin 0.3 0.0 - 1.4 mg/dL LAB CHEMISTRY METHOD 04/14/2024 12:24 PM [facility] Blood Venous blood specimen / Unknown Venipuncture / Unknown 04/14/2024 6:53 AM EST 04/14/2024 10:33 AM EST us Petros Kumar MD LAB BLOOD ORDERABLES Final Resul t [facility] [address] [place] [address], * (ABNORMAL) Complete blood count (04/14/2024 6:53 AM EST) WBC 4.8 4.8 - 10.8 K/mcL LAB HEMETOLOGY METHOD 04/14/2024 11:29 AM EST [facility] RBC 3.80 3.80 - 4.80 M/mcL LAB HEMETOLOGY METHOD 04/14/2024 11:29 AM [facility] Hemoglobin 11.1(L) 11.5 - 16.0 g/dL LAB HEMETOLOGY METHOD 04/14/2024 11:29 AM [facility] Hematocrit 35.4 35.0 - 47.0 % LAB HEMETOLOGY METHOD 04/14/2024 11:29 AM [facility] MCV 93.4 79.0 - 98.0 FL LAB HEMETOLOGY METHOD 04/14/2024 11:29 AM [facility] MCH 29.3 27.0 - 32.0 pcg LAB HEMETOLOGY METHOD 04/14/2024 11:29 AM [facility] MCHC 31.4(L) 32.0 - 37.0 g/dL LAB HEMETOLOGY METHOD 04/14/2024 11:29 AM [facility] RDW 13.3 11.0 - 15.0 % LAB HEMETOLOGY METHOD 04/14/2024 11:29 AM [facility] Platelets 200 130 - 400 K/mcL LAB HEMETOLOGY METHOD 04/14/2024 11:29 AM [facility] MPV 11.9(H) 7.0 - 11.0 FL LAB HEMETOLOGY METHOD 04/14/2024 11:29 AM [facility] NRBC 0.0 <1.0 % LAB HEMETOLOGY METHOD 04/14/2024 11:29 AM [facility] NRBC Absolute 0.00 <0.10 K/mcL LAB HEMETOLOGY METHOD 04/14/2024 11:29 AM [facility] Blood Venous blood specimen / Unknown Venipuncture / Unknown 04/14/2024 6:53 AM EST 04/14/2024 10:33 AM EST Petros Kumar MD LAB BLOOD ORDERABLES Final [facility]ul t [facility] [address] [place] [address], documented in this encounter Visit Diagnoses Diagnosis Essential (primary) hypertension Unspecified essential hypertension documented in this encounter Care Teams Six Sigma Black Trainer Relationship Specialty Start Date End Date Jyothi Ayers MD [address] [place] [address] PCP - General 04/10/22 documented as of this encounter
--- OUTSIDE RECORDS SUMMARY | 2025-04-24 20:55 | XMS_ITS | Encounter Summary ---
Author Organization [facility] Address [address] [place] [address] Care Team Providers Care Lunchroom Attendant Name Role Phone Jyothi Ayers MD Primary Care Provider +1- [phone] Encounter Details Date Type Department Care Team (Late st Contact Info) Description 05/09/2024 Lab Requisition [facility] - Main Lab [address] [facility] [place] [address] Petros Kumar MD [address] [place] [address] Essential (primary) hypertension Social History Tobacco Use [...] hypertension documented in this encounter Care Teams Lunchroom Attendant Relationship Specialty Start Date End Date Jyothi Ayers MD [address] [place] [address] PCP - General 04/10/22 documented as of this encounter
--- OUTSIDE RECORDS SUMMARY | 2025-04-24 20:55 | XMS_ITS | Encounter Summary ---
Author Organization [facility] Address [address] [place] [address] Care Team Providers Care Literacy Teacher Name Role Phone Jyothi Ayers MD Primary Care Provider +1- [phone] Encounter Details Date Type Department Care Team (Late st Contact Info) Description 04/25/2024 Lab Requisition [facility] - Main Lab 299 [facility] [place] [address] Petros Kumar MD [address] [place] [address] Essential (primary) hypertension Social History Tobacco Use [...] LAB CHEMISTRY METHOD 04/28/2024 12:03 PM EST [facility] Potassium 3.9 3.5 - 5.5 mmol/L LAB CHEMISTRY METHOD 04/28/2024 12:03 PM [facility] Chloride 104 96 - 110 mmol/L LAB CHEMISTRY METHOD 04/28/2024 12:03 PM [facility] CO2 32 21 - 32 mmol/L LAB CHEMISTRY METHOD 04/28/2024 12:03 PM [facility] Anion Gap 5 3 - 11 LAB CHEMISTRY METHOD 04/28/2024 12:03 PM [facility] Glucose 64(L) 70 - 100 mg/dL LAB CHEMISTRY METHOD 04/28/2024 12:03 PM [facility] BUN 11 5 - 25 mg/dL LAB CHEMISTRY METHOD 04/28/2024 12:03 PM [facility] Creatinine 0.60 0.50 - 1.10 mg/dL LAB CHEMISTRY METHOD 04/28/2024 12:03 PM [facility] eGFR 91 >=60 mL/min/1. 73m2 LAB CHEMISTRY METHOD 04/28/2024 12:03 PM [facility] Comment:Calculation based on the Chronic Kidney Disease Epidemiology Collaboration (CKD-EPI) equation refit without adjustment for race. BUN/Creatinine Ratio 18.3 LAB CHEMISTRY METHOD 04/28/2024 12:03 PM [facility] Calcium 9.1 8.5 - 10.5 mg/dL LAB CHEMISTRY METHOD 04/28/2024 12:03 PM [facility] Blood Venous blood specimen / Unknown Venipuncture / Unknown 04/28/2024 6:44 AM EST 04/28/2024 10:38 AM EST us Petros Kumar MD LAB BLOOD ORDERABLES Final Resul t [facility] [address] [place] [address], * (ABNORMAL) Complete blood count (04/28/2024 6:44 AM EST) [facility] WBC 4.1(L) 4.8 - 10.8 K/mcL LAB HEMETOLOGY METHOD 04/28/2024 11:32 AM [facility] RBC 3.50(L) 3.80 - 4.80 M/mcL LAB HEMETOLOGY METHOD 04/28/2024 11:32 AM [facility] Hemoglobin 9.9(L) 11.5 - 16.0 g/dL LAB HEMETOLOGY METHOD 04/28/2024 11:32 AM [facility] Hematocrit 32.8(L) 35.0 - 47.0 % LAB HEMETOLOGY METHOD 04/28/2024 11:32 AM [facility] MCV 94.8 79.0 - 98.0 FL LAB HEMETOLOGY METHOD 04/28/2024 11:32 AM [facility] MCH 28.6 27.0 - 32.0 pcg LAB HEMETOLOGY METHOD 04/28/2024 11:32 AM [facility] MCHC 30.2(L) 32.0 - 37.0 g/dL LAB HEMETOLOGY METHOD 04/28/2024 11:32 AM [facility] RDW 12.8 11.0 - 15.0 % LAB HEMETOLOGY METHOD 04/28/2024 11:32 AM [facility] Platelets 150 130 - 400 K/mcL LAB HEMETOLOGY METHOD 04/28/2024 11:32 AM [facility] MPV 11.8(H) 7.0 - 11.0 FL LAB HEMETOLOGY METHOD 04/28/2024 11:32 AM [facility] NRBC 0.0 <1.0 % LAB HEMETOLOGY METHOD 04/28/2024 11:32 AM [facility] NRBC Absolute 0.00 <0.10 K/mcL LAB HEMETOLOGY METHOD 04/28/2024 11:32 AM EST [facility] Blood Venous blood specimen / Unknown Venipuncture / Unknown 04/28/2024 6:44 AM EST 04/28/2024 10:38 AM EST us Petros Kumar MD LAB BLOOD ORDERABLES Final Resul t [facility] [address] [place] [address], [place] [phone] documented in this encounter Visit Diagnoses Diagnosis Essential (primary) hypertension Unspecified essential hypertension documented in this encounter Care Teams Literacy Teacher Relationship Specialty Start Date End Date Jyothi Ayers MD [address] [place] [address] PCP - General 04/10/22 documented as of this encounter
--- OUTSIDE RECORDS SUMMARY | 2025-04-24 20:55 | XMS_ITS | Encounter Summary ---
Author Organization [facility] Address [address] [place] [address] Care Team Providers Care Instrument Technician Apprentice Name Role Phone Jyothi Ayers MD Primary Care Provider +1- [phone] Encounter Details Date Type Department Care Team (Late st Contact Info) Description 06/16/2024 Lab Requisition [facility] - Main Lab 299 [facility] [place] [address] Petros Kumar MD [address] [place] [address] Hypothyroidism, unspecified Social History Tobacco Use Types [...] LAB CHEMISTRY METHOD 06/17/2024 11:20 AM EST [facility] Potassium 4.0 3.5 - 5.5 [...] MD LAB BLOOD ORDERABLES Final Resul t [facility] [address] [place] [address], [place] [phone] * (ABNORMAL) Complete blood count (06/17/2024 7:10 [...] MD LAB BLOOD ORDERABLES Final Resul t [facility] [address] [place] [address], documented in this encounter Visit Diagnoses Diagnosis Hypothyroidism, unspecified documented in this encounter Care Teams Instrument Technician Apprentice Relationship Specialty Start Date End Date Jyothi Ayers MD [address] [place] [address] PCP - General 04/10/22 documented as of this encounter
--- OUTSIDE RECORDS SUMMARY | 2025-04-24 20:55 | XMS_ITS | Encounter Summary ---
Author Organization [facility] Address [address] [place] [address] Care Team Providers Care Electroneurodiagnostic Technician Name Role Phone Jyothi Ayers MD Primary Care Provider +1- [phone] Encounter Details Date Type Department Care Team (Late st Contact Info) Description 06/23/2024 Lab Requisition [facility] - Main Lab 299 [facility] [place] [address] Petros Kumar MD [address] [place] [address] Hypothyroidism, unspecified Social History Tobacco Use Types [...] unspecified documented in this encounter Care Teams Electroneurodiagnostic Technician Relationship Specialty Start Date End Date Jyothi Ayers MD [address] [place] [address] PCP - General 04/10/22 documented as of this encounter
--- OUTSIDE RECORDS SUMMARY | 2025-04-24 20:55 | XMS_ITS | Encounter Summary ---
Author Organization [facility] Address [address] [place] [address] Care Team Providers Care Light Bulb Replacer Name Role Phone Jyothi Ayers MD Primary Care Provider +1- [phone] Encounter Details Date Type Department Care Team (Late st Contact Info) Description 06/09/2024 Lab Requisition [facility] - Main Lab 299 [facility] [place] [address] Petros Kumar MD [address] [place] [address] Hypothyroidism, unspecified Social History Tobacco Use Types [...] LAB CHEMISTRY METHOD 06/10/2024 11:59 AM EST [facility]) [facility] Potassium 4.2 3.5 - 5.5 mmol/L LAB CHEMISTRY METHOD 06/10/2024 11:59 AM [facility] Chloride 102 96 - 110 mmol/L LAB CHEMISTRY METHOD 06/10/2024 11:59 AM [facility] CO2 34(H) 21 - 32 mmol/L LAB CHEMISTRY METHOD 06/10/2024 11:59 AM [facility] Anion Gap 4 3 - 11 LAB CHEMISTRY METHOD 06/10/2024 11:59 AM [facility] Glucose 88 70 - 100 mg/dL LAB CHEMISTRY METHOD 06/10/2024 11:59 AM [facility] BUN 13 5 - 25 mg/dL LAB CHEMISTRY METHOD 06/10/2024 11:59 AM [facility] Creatinine 0.61 0.50 - 1.10 mg/dL LAB CHEMISTRY METHOD 06/10/2024 11:59 AM [facility] eGFR 90 >=60 mL/min/1. 73m2 LAB CHEMISTRY METHOD 06/10/2024 11:59 AM [facility] Comment:Calculation based on the Chronic Kidney Disease Epidemiology Collaboration (CKD-EPI) equation refit without adjustment for race. BUN/Creatinine Ratio 21.3 LAB CHEMISTRY METHOD 06/10/2024 11:59 AM [facility] Calcium 8.6 8.5 - 10.5 mg/dL LAB CHEMISTRY METHOD 06/10/2024 11:59 AM [facility] AST (SGOT) 12 10 - 42 unit/L LAB CHEMISTRY METHOD 06/10/2024 11:59 AM [facility] ALT (SGPT) 12 10 - 60 unit/L LAB CHEMISTRY METHOD 06/10/2024 11:59 AM [facility] Alkaline Phosphatase 65 42 - 121 unit/L LAB CHEMISTRY METHOD 06/10/2024 11:59 AM [facility] Total Protein 5.4(L) 6.0 - 8.0 g/dL LAB CHEMISTRY METHOD 06/10/2024 11:59 AM [facility] Albumin 2.6(L) 3.2 - 5.0 g/dL LAB CHEMISTRY METHOD 06/10/2024 11:59 AM [facility] Total Bilirubin 0.2 0.0 - 1.4 mg/dL LAB CHEMISTRY METHOD 06/10/2024 11:59 AM [facility] Blood Venous blood specimen / Unknown Venipuncture / Unknown 06/10/2024 6:31 AM EST 06/10/2024 10:22 AM EST us Petros Kumar MD LAB BLOOD ORDERABLES Final Resul t [facility] [address] [place] [address], [place] [phone] * (ABNORMAL) Complete blood count (06/10/2024 6:31 AM EST) WBC 4.4(L) 4.8 - 10.8 K/mcL LAB HEMETOLOGY METHOD 06/10/2024 11:26 AM [facility] RBC 3.70(L) 3.80 - 4.80 M/mcL LAB HEMETOLOGY METHOD 06/10/2024 11:26 AM [facility] Hemoglobin 10.0(L) 11.5 - 16.0 g/dL LAB HEMETOLOGY METHOD 06/10/2024 11:26 AM [facility] Hematocrit 33.2(L) 35.0 - 47.0 % LAB HEMETOLOGY METHOD 06/10/2024 11:26 AM [facility] MCV 91.0 79.0 - 98.0 FL LAB HEMETOLOGY METHOD 06/10/2024 11:26 AM [facility] MCH 27.4 27.0 - 32.0 pcg LAB HEMETOLOGY METHOD 06/10/2024 11:26 AM EST [facility] MCHC 30.1(L) 32.0 - 37.0 g/dL LAB HEMETOLOGY METHOD 06/10/2024 11:26 AM [facility] RDW 13.0 11.0 - 15.0 % LAB HEMETOLOGY METHOD 06/10/2024 11:26 AM [facility] Platelets 162 130 - 400 K/mcL LAB HEMETOLOGY METHOD 06/10/2024 11:26 AM [facility] MPV 11.7(H) 7.0 - 11.0 FL LAB HEMETOLOGY METHOD 06/10/2024 11:26 AM [facility] NRBC 0.0 <1.0 % LAB HEMETOLOGY METHOD 06/10/2024 11:26 AM [facility] NRBC Absolute 0.00 <0.10 K/mcL LAB HEMETOLOGY METHOD 06/10/2024 11:26 AM [facility] Blood Venous blood specimen / Unknown Venipuncture / Unknown 06/10/2024 6:31 AM EST 06/10/2024 10:22 AM EST us Petros Kumar MD LAB BLOOD ORDERABLES Final Resul t [facility] [address] [place] [address], documented in this encounter Visit Diagnoses Diagnosis Hypothyroidism, unspecified documented in this encounter Care Teams Light Bulb Replacer Relationship Specialty Start Date End Date Jyothi Ayers MD [address] [place] [address] PCP - General 04/10/22 documented as of this encounter
--- OUTSIDE RECORDS SUMMARY | 2025-04-24 20:55 | XMS_ITS | Encounter Summary ---
Author Organization [employer] Address [address] [facility] 7 [place] [address] Care Team Providers Care Aircraft Engine Technician Name Role Phone Unavailable Primary Care Provider [...]
--- OUTSIDE RECORDS SUMMARY | 2025-04-24 20:55 | XMS_ITS | Encounter Summary ---
Author Organization [facility] Address [address] [place] [address] Care Team Providers Care Acquisition Manager Name Role Phone Jyothi Ayers MD Primary Care Provider +1- [phone] Encounter Details Date Type Department Care Team (Late st Contact Info) Description 05/21/2024 Lab Requisition [facility] - Main Lab [address] [facility] [place] [address] Petros Kumar MD [address] [place] [address] Urinary tract infection, site not specified Social [...] * (ABNORMAL) Folate (05/21/2024 6:50 AM EST) [facility] Folate 19.3(H) 2.8 - 17.0 ng/ml LAB CHEMISTRY METHOD 05/21/2024 12:04 PM EST [facility] LAB Blood Venous blood specimen / Unknown Venipuncture / Unknown 05/21/2024 6:50 AM EST 05/21/2024 9:07 AM EST us Petros Kumar MD LAB BLOOD ORDERABLES Final Resul t Performing Organization Address [facility] Co de Phone Number [facility] LAB [address] [place] [address], [place] [phone] * Vitamin B12 (05/21/2024 6:50 AM EST) [facility] Vitamin B-12 520 250 - 900 pcg/mL LAB CHEMISTRY METHOD 05/21/2024 12:04 PM EST [facility] LAB Blood Venous blood specimen / Unknown Venipuncture / Unknown 05/21/2024 6:50 AM EST 05/21/2024 9:07 AM EST us Petros Kumar MD LAB BLOOD ORDERABLES Final Resul t Performing Organization Address City/[facility]/ZIP Co de Phone Number [facility] LAB [address] [place] [address], [place] [phone] * Thyroid stimulating hormone (05/21/2024 6:50 AM EST) [facility] TSH 1.31 0.40 - 4.00 mcIU/mL LAB CHEMISTRY METHOD 05/21/2024 10:27 AM EST [facility] LAB Blood Venous blood specimen / Unknown Venipuncture / Unknown 05/21/2024 6:50 AM EST 05/21/2024 9:07 AM EST us Petros Kumar MD LAB BLOOD ORDERABLES Final Resul t [facility] LAB [address] [place] [address], [place] [phone] * (ABNORMAL) Comprehensive metabolic panel (05/21/2024 6:50 AM EST) Sodium 138 133 - 145 mmol/L LAB CHEMISTRY METHOD 05/21/2024 12:04 PM [facility] Potassium 4.0 3.5 - 5.5 mmol/L LAB CHEMISTRY METHOD 05/21/2024 12:04 PM [facility] Chloride 101 96 - 110 mmol/L LAB CHEMISTRY METHOD 05/21/2024 12:04 PM [facility] CO2 30 21 - 32 mmol/L LAB CHEMISTRY METHOD 05/21/2024 12:04 PM [facility] Anion Gap 7 3 - 11 LAB CHEMISTRY METHOD 05/21/2024 12:04 PM [facility] Glucose 108(H) 70 - 100 mg/dL LAB CHEMISTRY METHOD 05/21/2024 12:04 PM [facility] BUN 10 5 - 25 mg/dL LAB CHEMISTRY METHOD 05/21/2024 12:04 PM [facility] Creatinine 0.46(L) 0.50 - 1.10 mg/dL LAB CHEMISTRY METHOD 05/21/2024 12:04 PM [facility] LAB eGFR 96 >=60 mL/min/1. 73m2 LAB CHEMISTRY METHOD 05/21/2024 12:04 PM [facility] Comment:Calculation based on the Chronic Kidney Disease Epidemiology Collaboration (CKD-EPI) equation refit without adjustment for race. BUN/Creatinine Ratio 21.7 LAB CHEMISTRY METHOD 05/21/2024 12:04 PM [facility] Calcium 9.5 8.5 - 10.5 mg/dL LAB CHEMISTRY METHOD 05/21/2024 12:04 PM [facility] AST (SGOT) 10 10 - 42 unit/L LAB CHEMISTRY METHOD 05/21/2024 12:04 PM [facility] ALT (SGPT) 7(L) 10 - 60 unit/L LAB CHEMISTRY METHOD 05/21/2024 12:04 PM [facility] Alkaline Phosphatase 68 42 - 121 unit/L LAB CHEMISTRY METHOD 05/21/2024 12:04 PM [facility] Total Protein 6.0 6.0 - 8.0 g/dL LAB CHEMISTRY METHOD 05/21/2024 12:04 PM [facility] Albumin 2.7(L) 3.2 - 5.0 g/dL LAB CHEMISTRY METHOD 05/21/2024 12:04 PM [facility] Total Bilirubin 0.2 0.0 - 1.4 mg/dL LAB CHEMISTRY METHOD 05/21/2024 12:04 PM [facility] Blood Venous blood specimen / Unknown Venipuncture / Unknown 05/21/2024 6:50 AM EST 05/21/2024 9:07 AM EST us Petros Kumar MD LAB BLOOD ORDERABLES Final Resul t [facility] [address] [place] [address], * (ABNORMAL) Complete blood count (05/21/2024 6:50 AM EST) WBC 3.7(L) 4.8 - 10.8 K/mcL LAB HEMETOLOGY METHOD 05/21/2024 9:49 AM [facility] RBC 3.90 3.80 - 4.80 M/mcL LAB HEMETOLOGY METHOD 05/21/2024 9:49 AM [facility] Hemoglobin 11.1(L) 11.5 - 16.0 g/dL LAB HEMETOLOGY METHOD 05/21/2024 9:49 AM [facility] Hematocrit 35.1 35.0 - 47.0 % LAB HEMETOLOGY METHOD 05/21/2024 9:49 AM [facility] MCV 89.3 79.0 - 98.0 FL LAB HEMETOLOGY METHOD 05/21/2024 9:49 AM [facility] MCH 28.2 27.0 - 32.0 pcg LAB HEMETOLOGY METHOD 05/21/2024 9:49 AM [facility] MCHC 31.6(L) 32.0 - 37.0 g/dL LAB HEMETOLOGY METHOD 05/21/2024 9:49 AM [facility] RDW 12.4 11.0 - 15.0 % LAB HEMETOLOGY METHOD 05/21/2024 9:49 AM [facility] Platelets 161 130 - 400 K/mcL LAB HEMETOLOGY METHOD 05/21/2024 9:49 AM [facility] MPV 11.6(H) 7.0 - 11.0 FL LAB HEMETOLOGY METHOD 05/21/2024 9:49 AM [facility] NRBC 0.0 <1.0 % LAB HEMETOLOGY METHOD 05/21/2024 9:49 AM [facility] NRBC Absolute 0.00 <0.10 K/mcL LAB HEMETOLOGY METHOD 05/21/2024 9:49 AM [facility] Blood Venous blood specimen / Unknown Venipuncture / Unknown 05/21/2024 6:50 AM EST 05/21/2024 9:07 AM EST us Petros Kumar MD LAB BLOOD ORDERABLES Final Resul t [facility] [address] [place] [address], documented in this encounter Visit Diagnoses Diagnosis Urinary tract infection, site not specified documented in this encounter Care Teams Acquisition Manager Relationship Specialty Start Date End Date Jyothi Ayers MD [address] [place] [address] PCP - General 04/10/22 documented as of this encounter
--- OUTSIDE RECORDS SUMMARY | 2025-04-24 20:56 | XMS_ITS | Encounter Summary ---
Author Organization [facility] Address [address] [place] [address] Care Team Providers Care Veterinary Assistant Technician Name Role Phone Jyothi Ayers MD Primary Care Provider +1- [phone] Encounter Details Date Type Department Care Team (Late st Contact Info) Description 05/26/2024 Lab Requisition [facility] - Main Lab 299 [facility] [place] [address] Petros Kumar MD [address] [place] [address] Hypothyroidism, unspecified Social History Tobacco Use Types [...] LAB CHEMISTRY METHOD 05/27/2024 11:14 AM EST [facility] ([facility]) [facility] Potassium 4.4 3.5 - 5.5 mmol/L LAB CHEMISTRY METHOD 05/27/2024 11:[address] [facility] Chloride 104 96 - 110 mmol/L LAB CHEMISTRY METHOD 05/27/2024 11:[address] [facility] CO2 32 21 - 32 mmol/L LAB CHEMISTRY METHOD 05/27/2024 11:[address] [facility] Anion Gap 4 3 - 11 LAB CHEMISTRY METHOD 05/27/2024 11:[address] [facility] Glucose 105(H) 70 - 100 mg/dL LAB CHEMISTRY METHOD 05/27/2024 11:[address] [facility] BUN 11 5 - 25 mg/dL LAB CHEMISTRY METHOD 05/27/2024 11:[address] [facility] Creatinine 0.65 0.50 - 1.10 mg/dL LAB CHEMISTRY METHOD 05/27/2024 11:[address] [facility] eGFR 89 >=60 mL/min/1. 73m2 LAB CHEMISTRY METHOD 05/27/2024 11:[address] [facility] LAB Comment:Calculation based on the Chronic Kidney Disease Epidemiology Collaboration (CKD-EPI) equation refit without adjustment for race. BUN/Creatinine Ratio 16.9 LAB CHEMISTRY METHOD 05/27/2024 11:[address] [facility] Calcium 9.1 8.5 - 10.5 mg/dL LAB CHEMISTRY METHOD 05/27/2024 11:[address] [facility] AST (SGOT) 10 10 - 42 unit/L LAB CHEMISTRY METHOD 05/27/2024 11:[address] [facility] ALT (SGPT) 8(L) 10 - 60 unit/L LAB CHEMISTRY METHOD 05/27/2024 11:[address] [facility] Alkaline Phosphatase 70 42 - 121 unit/L LAB CHEMISTRY METHOD 05/27/2024 11:[address] [facility] Total Protein 5.8(L) 6.0 - 8.0 g/dL LAB CHEMISTRY METHOD 05/27/2024 11:[address] [facility] Albumin 2.6(L) 3.2 - 5.0 g/dL LAB CHEMISTRY METHOD 05/27/2024 11:[address] [facility] Total Bilirubin 0.3 0.0 - 1.4 mg/dL LAB CHEMISTRY METHOD 05/27/2024 11:[address] [facility] Blood Venous blood specimen / Unknown Venipuncture / Unknown 05/27/2024 7:05 AM EST 05/27/2024 10:17 AM EST us Petros Kumar MD LAB BLOOD ORDERABLES Final Resul t [facility] [address] [place] [address], * (ABNORMAL) Complete blood count (05/27/2024 7:05 AM EST) WBC 4.8 4.8 - 10.8 K/mcL LAB HEMETOLOGY METHOD 05/27/2024 10:[address] [facility] RBC 3.80 3.80 - 4.80 M/mcL LAB HEMETOLOGY METHOD 05/27/2024 10:[address] [facility] Hemoglobin 10.6(L) 11.5 - 16.0 g/dL LAB HEMETOLOGY METHOD 05/27/2024 10:[address] [facility] Hematocrit 34.5(L) 35.0 - 47.0 % LAB HEMETOLOGY METHOD 05/27/2024 10:[address] [facility] MCV 89.8 79.0 - 98.0 FL LAB HEMETOLOGY METHOD 05/27/2024 10:[address] [facility] MCH 27.6 27.0 - 32.0 pcg LAB HEMETOLOGY METHOD 05/27/2024 10:[address] [facility] MCHC 30.7(L) 32.0 - 37.0 g/dL LAB HEMETOLOGY METHOD 05/27/2024 10:[address] [facility] RDW 12.5 11.0 - 15.0 % LAB HEMETOLOGY METHOD 05/27/2024 10:[address] [facility] Platelets 165 130 - 400 K/mcL LAB HEMETOLOGY METHOD 05/27/2024 10:[address] [facility] MPV 11.5(H) 7.0 - 11.0 FL LAB HEMETOLOGY METHOD 05/27/2024 10:[address] [facility] NRBC 0.0 <1.0 % LAB HEMETOLOGY METHOD 05/27/2024 10:[address] [facility] NRBC Absolute 0.00 <0.10 K/mcL LAB HEMETOLOGY METHOD 05/27/2024 10:[address] [facility] Blood Venous blood specimen / Unknown Venipuncture / Unknown 05/27/2024 7:05 AM EST 05/27/2024 10:17 AM EST us Petros Kumar MD LAB BLOOD ORDERABLES Final Resul t [facility] [address] [place] [address], documented in this encounter Visit Diagnoses Diagnosis Hypothyroidism, unspecified documented in this encounter Care Teams Veterinary Assistant Technician Relationship Specialty Start Date End Date Jyothi Ayers MD [address] [place] [address] PCP - General 04/10/22 documented as of this encounter
--- OUTSIDE RECORDS SUMMARY | 2025-04-24 20:56 | XMS_ITS | Encounter Summary ---
Author Organization [facility] Address [address] [place] [address] Care Team Providers Care Career Technical Education Teacher Name Role Phone Jyothi Ayers MD Primary Care Provider +1- [phone] Encounter Details Date Type Department Care Team (Late st Contact Info) Description 05/27/[address] [facility] - Main Lab 299 [facility] [place] [address] Petros Kumar MD [address] [place] [address] Type 2 diabetes mellitus without complications (CMS/HCC [...] LAB CHEMISTRY METHOD 05/28/2024 1:07 PM EST [facility] Mean Bld Glu Estim. 137 mg/dL LAB CHEMISTRY METHOD 05/28/2024 1:07 PM EST [facility] LAB Blood Venous blood specimen / Unknown Venipuncture / Unknown 05/28/2024 8:15 AM EST 05/28/2024 9:44 AM EST us Petros Kumar MD LAB BLOOD ORDERABLES Final Resul t [facility] [address] [place] [address], documented in this encounter Visit Diagnoses Diagnosis Type 2 diabetes mellitus without complications (CMS/HCC V24, CMS/HCC V28) documented in this encounter Care Teams Career Technical Education Teacher Relationship Specialty Start Date End Date Jyothi Ayers MD [address] [place] [address] PCP - General 04/10/22 documented as of this encounter
--- OUTSIDE RECORDS SUMMARY | 2025-04-24 20:56 | XMS_ITS | Clinical Summary ---
Author Organization [employer] Address [address] [facility] [address] [place] [address] Care Team Providers Care [employer] Jointer Name Role Phone Unavailable Primary Care Provider [...]
--- OUTSIDE RECORDS SUMMARY | 2025-04-24 20:56 | XMS_ITS | Encounter Summary ---
Author Organization [facility] Address [address] [place] [address] Care Team Providers Care Head School Custodian Name Role Phone Jyothi Ayers MD Primary Care Provider +1- [phone] Encounter Details Date Type Department Care Team (Late st Contact Info) Description 06/02/[address] [facility] - Main Lab [address] [facility] [address] Petros Kumar MD [address] [place] [address] Hypothyroidism, unspecified Social History Tobacco Use Types [...] LAB CHEMISTRY METHOD 06/03/2024 10:28 AM EST [facility] LAB Potassium 4.2 3.5 - 5.5 mmol/L LAB CHEMISTRY METHOD 06/03/2024 10:28 AM [facility] LAB Chloride 104 96 - 110 mmol/L LAB CHEMISTRY METHOD 06/03/2024 10:28 AM [facility] LAB CO2 33(H) 21 - 32 mmol/L LAB CHEMISTRY METHOD 06/03/2024 10:28 AM [facility] LAB Anion Gap 4 3 - 11 LAB CHEMISTRY METHOD 06/03/2024 10:28 AM [facility] LAB Glucose 100 70 - 100 mg/dL LAB CHEMISTRY METHOD 06/03/2024 10:28 AM [facility] LAB BUN 9 5 - 25 mg/dL LAB CHEMISTRY METHOD 06/03/2024 10:28 AM [facility] LAB Creatinine 0.54 0.50 - 1.10 mg/dL LAB CHEMISTRY METHOD 06/03/2024 10:28 AM [facility] LAB eGFR 93 >=60 mL/min/1. 73m2 LAB CHEMISTRY METHOD 06/03/2024 10:28 AM [facility] LAB Comment:Calculation based on the Chronic Kidney Disease Epidemiology Collaboration (CKD-EPI) equation refit without adjustment for race. BUN/Creatinine Ratio 16.7 LAB CHEMISTRY METHOD 06/03/2024 10:28 AM [facility] LAB Calcium 8.9 8.5 - 10.5 mg/dL LAB CHEMISTRY METHOD 06/03/2024 10:28 AM [facility] LAB AST (SGOT) 10 10 - 42 unit/L LAB CHEMISTRY METHOD 06/03/2024 10:28 AM [facility] LAB ALT (SGPT) 9(L) 10 - 60 unit/L LAB CHEMISTRY METHOD 06/03/2024 10:28 AM [facility] LAB Alkaline Phosphatase 69 42 - 121 unit/L LAB CHEMISTRY METHOD 06/03/2024 10:28 AM [facility] LAB Total Protein 5.5(L) 6.0 - 8.0 g/dL LAB CHEMISTRY METHOD 06/03/2024 10:28 AM [facility] LAB Albumin 2.5(L) 3.2 - 5.0 g/dL LAB CHEMISTRY METHOD 06/03/2024 10:28 AM [facility] LAB Total Bilirubin 0.3 0.0 - 1.4 mg/dL LAB CHEMISTRY METHOD 06/03/2024 10:28 AM [facility] LAB Blood Venous blood specimen / Unknown Venipuncture / Unknown 06/03/2024 6:32 AM EST 06/03/2024 9:22 AM EST us Petros Kumar MD LAB BLOOD ORDERABLES Final Resul t [facility] [address] [place] [address], * (ABNORMAL) Complete blood count (06/03/2024 6:32 AM EST) WBC 5.3 4.8 - 10.8 K/mcL LAB HEMETOLOGY METHOD 06/03/2024 9:59 AM [facility] LAB RBC 3.70(L) 3.80 - 4.80 M/mcL LAB HEMETOLOGY METHOD 06/03/2024 9:59 AM [facility] LAB Hemoglobin 10.1(L) 11.5 - 16.0 g/dL LAB HEMETOLOGY METHOD 06/03/2024 9:59 AM [facility] LAB Hematocrit 32.6(L) 35.0 - 47.0 % LAB HEMETOLOGY METHOD 06/03/2024 9:59 AM [facility] LAB MCV 88.8 79.0 - 98.0 FL LAB HEMETOLOGY METHOD 06/03/2024 9:59 AM [facility] LAB MCH 27.5 27.0 - 32.0 pcg LAB HEMETOLOGY METHOD 06/03/2024 9:59 AM EST [facility] LAB MCHC 31.0(L) 32.0 - 37.0 g/dL LAB HEMETOLOGY METHOD 06/03/2024 9:59 AM [facility] RDW 12.5 11.0 - 15.0 % LAB HEMETOLOGY METHOD 06/03/2024 9:59 AM [facility] LAB Platelets 179 130 - 400 K/mcL LAB HEMETOLOGY METHOD 06/03/2024 9:59 AM [facility] LAB MPV 11.3(H) 7.0 - 11.0 FL LAB HEMETOLOGY METHOD 06/03/2024 9:59 AM [facility] LAB NRBC 0.0 <1.0 % LAB HEMETOLOGY METHOD 06/03/2024 9:59 AM [facility] LAB NRBC Absolute 0.00 <0.10 K/mcL LAB HEMETOLOGY METHOD 06/03/2024 9:59 AM [facility] LAB Blood Venous blood specimen / Unknown Venipuncture / Unknown 06/03/2024 6:32 AM EST 06/03/2024 9:22 AM EST us Petros Kumar MD LAB BLOOD ORDERABLES Final Resul t [facility] [address] [place] [address], documented in this encounter Visit Diagnoses Diagnosis Hypothyroidism, unspecified documented in this encounter Care Teams Head School Custodian Relationship Specialty Start Date End Date Jyothi Ayers MD [address] [place] [address] PCP - General 04/10/22 documented as of this encounter
[2025-04-27 10:16] LABS: Alcohol, Ethyl Urine Screen NEGATIVE
== END 2025-04-24 13:59 | disposition home or self-care (01) ==
LOC: HO.HKASLDS 13:58
PROVIDERS: PCP Internal Medicine; Visit Provider Internal Medicine
DX: C22.1 Intrahepatic bile duct carcinoma (principal); E11.69 Type 2 diabetes mellitus with other specified complication; E66.9 Obesity, unspecified; Z51.81 Encounter for therapeutic drug level monitoring
CPT/HCPCS: 80307